=== PATIENT | female | born 1935 | race Caucasian/White ===

== ENCOUNTER 2017-03-19 07:50 | Day surgery (SDC) | payer MEDICARE, OTHER ==
[~2017-03-19] VITALS: Ht 168.9 cm; Wt 100.0 kg
[~2017-03-19 07:50] MED LIST: ACETAMINOPHEN 325 MG TAB PO PRN; ATEN25TA PO; BSS with VANC/TOB/EPI for EYE CASES IR ONE; CEFUROXIME 1MG/0.1ML INTRACAMERAL INJ As Ordered ONE; CYCLOPENTOLATE 2% OPHTH SOLN 2ML BTL OD ONE; FURO20TA2 PO; HEALON DUET (HEALON 10MG/ML 0.55ML & HEALON ENDOCOAT 30MG/ML 0.85ML) As Ordered ONE; K-TA10TA2 PO; LIDOCAINE 1% SDV 5 ML VIAL As Ordered ONE; LIDOCAINE 3.5 % 1ML OPHTH TOPICAL GEL OU ONE; METH2.5TA PO; MIDAZOLAM INJ 2 MG/2 ML VIAL (J2250) As Ordered ONE; OFLOXACIN 0.3 % (OCUFLOX) OPTH SOL 5ML OD ONE; PHENYLEPHRINE 2.5% OPHTH SOL 2ML OD ONE; POVIDONE-IODINE 5% OPHTH PREP SOL 30ML As Ordered ONE; PROPARACAINE 0.5% OPHTH SOL 15ML OD PRN; SIMV20TA2 PO; TROPICAMIDE 1% OPHTH SOLN 2ML OD ONE
[2017-03-19] MEDS ORDERED: D5W/0.2% SODIUM CHLORIDE 250 ML IV ONE (08:00)
[2017-03-19] MEDS ORDERED: CEFUROXIME 1MG/0.1ML INTRACAMERAL INJ As Ordered ONE (09:56)
[2017-03-19] MEDS ORDERED: HEALON DUET (HEALON 10MG/ML 0.55ML & HEALON ENDOCOAT 30MG/ML 0.85ML) As Ordered ONE (10:10)
[2017-03-19] MEDS ORDERED: fentaNYL 100 MCG/2 ML INJECTION (J3010) As Ordered ONE (10:11)
[2017-03-19] MEDS ORDERED: TRIMETHOBENZAMIDE 300 MG CAP PO PRN (11:00)
[2017-03-19] MEDS ORDERED: KETOROLAC 0.5% OPHTH SOLN OD ONE (11:00)
[2017-03-19] MEDS ORDERED: AcetaZOLAMIDE 500 MG ER CAP PO ONE (11:00)
--- NOTE | 2017-03-19 11:03 | RO ---
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 PROCEDURE: Phacoemulsification with intraocular lens implantation of HOYA model 250, power 20 diopters. Along with endocyclophotocoagulation and placement of the glaukos iStent. SURGEON: Dr. Taqueria Simon LOKIE ENGINEER: None. ANESTHESIA: COMPLICATION: None. DESCRIPTION OF PROCEDURE: The patient was brought to the operating room and laid in the supine position. The eye was prepped and draped in a sterile fashion for ophthalmic surgery. A lid speculum was placed. A sideport incision was made and Entocort was injected into the anterior chamber. A temporal clear corneal incision was made with the 2.5 mm keratome followed by hydrodissection followed by capsulorrhexis and hydrodissection. Phacoemulsification was then carried out in a divide and conquer method within the capsular bag followed by aspiration of the cortical material. Healon was then placed in the capsular bag followed by placement of the intraocular lens. Healon was then placed in a ciliary sulcus and then with the help of the video screen and an EndoProbe, endocyclophotocoagulation at 2.5 mV was carried out 280 degrees with good results noted by the shrinking of the ciliary processes. Healon was then placed into the anterior chamber and the iStent was placed in the infranasal quadrant under high magnification with the help of the gonial lens. Good blood reflex was noted but it was very difficult because of the patient's constant movement. Viscoelastic was aspirated. The wound was hydrated. The lid speculum removed and the patient returned to the recovery room and case discussed in detail with the patient.
[2017-03-19 11:25] VITALS: BP 132/68
== END 2017-03-19 11:35 | disposition home or self-care (01) ==
LOC: M SDC 07:50
PROVIDERS: ATTEND Ophthalmology
DX: H26.9 Unspecified cataract (principal); H40.9 Unspecified glaucoma; E78.00 Pure hypercholesterolemia, unspecified; R60.0 Localized edema; M06.9 Rheumatoid arthritis, unspecified; D03.39 Melanoma in situ of other parts of face; J45.909 Unspecified asthma, uncomplicated; R06.83 Snoring; Z88.0 Allergy status to penicillin; Z79.899 Other long term (current) drug therapy; Z78.0 Asymptomatic menopausal state
CPT/HCPCS: 66711; 66984; C1783; J2250; J3010; V2632

== ENCOUNTER 2019-03-28 09:59 | Inpatient (IN) | payer MEDICARE, OTHER ==
[~2019-03-28] VITALS: Ht 170.2 cm; Wt 82.0 kg
[2019-03-28] MEDS: ATORVASTATIN 20 MG TAB PO SCH (09:00)
[2019-03-28] MEDS: FOLIC ACID 1 MG TAB PO SCH (09:00)
[~2019-03-28 09:59] MED LIST changes: -ACETAMINOPHEN 325 MG TAB PO PRN; -BSS with VANC/TOB/EPI for EYE CASES IR ONE; -CEFUROXIME 1MG/0.1ML INTRACAMERAL INJ As Ordered ONE; -CYCLOPENTOLATE 2% OPHTH SOLN 2ML BTL OD ONE; -HEALON DUET (HEALON 10MG/ML 0.55ML & HEALON ENDOCOAT 30MG/ML 0.85ML) As Ordered ONE; -LIDOCAINE 1% SDV 5 ML VIAL As Ordered ONE; -LIDOCAINE 3.5 % 1ML OPHTH TOPICAL GEL OU ONE; +METH2.5T48 PO; -METH2.5TA PO; -MIDAZOLAM INJ 2 MG/2 ML VIAL (J2250) As Ordered ONE; -OFLOXACIN 0.3 % (OCUFLOX) OPTH SOL 5ML OD ONE; -PHENYLEPHRINE 2.5% OPHTH SOL 2ML OD ONE; -POVIDONE-IODINE 5% OPHTH PREP SOL 30ML As Ordered ONE; -PROPARACAINE 0.5% OPHTH SOL 15ML OD PRN; -TROPICAMIDE 1% OPHTH SOLN 2ML OD ONE
--- NOTE | 2019-03-28 10:51 | REP ---
Portable chest, 10:31 a.m., single AP view with the patient sitting: Comparison is the chest CT of 2006. The lung rodrigues are clear. The cardiac size is normal. The bert, mediastinum, and skeletal structures are unremarkable. Impression: Negative portable chest. Electronically Signed by Ion Ellsworth MD 03/28/2019 10:42 A
[2019-03-28 10:56] LABS: HEMATOCRIT 28.2 % (36.0-47.0); HEMOGLOBIN 9.5 g/dl (12.0-15.5); MEAN CORPUSCULAR HEMOGLOBIN 32.8 pg (27.0-33.0); MEAN CORPUSCULAR HGB CONC 33.7 g/dl (32.0-36.5); MEAN CORPUSCULAR VOLUME 97.2 fl (80.0-96.0); PLATELET COUNT, AUTOMATED 245 10^3/uL (150-450)
[2019-03-28 10:57] LABS: WHITE BLOOD COUNT 1.4 10^3/uL (4.0-10.0)
[2019-03-28] MEDS ORDERED: NS 1,000 ML IV ONE ×2 (11:00→11:45)
[2019-03-28 11:09] LABS: INR 1.01
[2019-03-28 11:10] LABS: PARTIAL THROMBOPLASTIN TIME 28.4 SECONDS (25.0-38.4)
[2019-03-28] MEDS ORDERED: ASPIRIN 325 MG TAB PO ONE (11:15)
[2019-03-28 11:22] LABS: BLOOD UREA NITROGEN 15 MG/DL (7-18); CALCIUM LEVEL 8.2 MG/DL (8.8-10.2); CARBON DIOXIDE LEVEL 31 MEQ/L (21-32); CHLORIDE LEVEL 104 MEQ/L (98-107); CK-MB VALUE MASS < 1.0 NG/ML (<3.6); CPK CREATINE PHOSPHOKINASE 39 U/L (26-192); CREATININE FOR GFR 1.22 MG/DL (0.55-1.30); GLOMERULAR FILTRATION RATE 44.8 (>32); GLUCOSE, FASTING 119 MG/DL (70-100); MB/CK RELATIVE INDEX 2.56 (< OR =4); SODIUM LEVEL 139 MEQ/L (136-145); TROPONIN I < 0.02 NG/ML (< 0.10)
[2019-03-28 11:35] LABS: BASOPHILS 2 % (0-1); EOSINOPHILS 2 % (0-3); LYMPHOCYTES 34 % (16-44); NEUTROPHILS 62 % (28-66); PLATELET ESTIMATE NORMAL (NORMAL)
--- NOTE | 2019-03-28 11:39 | REP ---
CT BRAIN WITHOUT IV CONTRAST: CT brain performed without IV contrast. There is mild to moderate atrophy. There is no midline shift or mass effect. There is an old infarct in the left posterior parietal region. There is no acute intracranial hemorrhage or extra-axial fluid collection. Vascular calcifications are seen in the carotid siphons. IMPRESSION: No acute intracranial hemorrhage, midline shift, or mass effect. 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 Vascular calcifications. Electronically Signed by Ion Yancey MD 03/30/2019 10:45 P
[2019-03-28] MEDS ORDERED: PROHANCE 279.3MG/ML 5ML VIAL (A9576) As Ordered ONE (12:37)
--- NOTE | 2019-03-28 13:12 | ECGEPIP ---
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
--- NOTE | 2019-03-28 14:12 | REPVR ---
EXAM: MR Angiogram Head Without Contrast, Arteries EXAM DATE/TIME: 03/28/2019 11:17 AM CLINICAL HISTORY: 83 years old, female; Weakness; Additional info: Per Dr abril gandaraided wkness and neglect TECHNIQUE: Imaging protocol: MR angiogram head without contrast. Exam focused on the arteries. COMPARISON: CT Head without contrast 03/28/2019 10:24 AM FINDINGS: Right internal carotid artery: Mildly heterogeneous contour, suggesting atherosclerosis. Intracranial segment is patent with no significant stenosis. No aneurysm. Right anterior cerebral artery: Unremarkable. No occlusion or significant stenosis. No aneurysm. Right middle cerebral artery: Unremarkable. No occlusion or significant stenosis. No aneurysm. Right posterior cerebral artery: Mild heterogeneous contour, suggesting atherosclerosis. No occlusion or significant stenosis. No aneurysm. Right vertebral artery: Dominant compared to the left. No occlusion or significant stenosis. No aneurysm. Left internal carotid artery: Mildly heterogeneous contour, suggesting atherosclerosis. Intracranial segment is patent with no significant stenosis. No aneurysm. Left anterior cerebral artery: Unremarkable. No occlusion or significant stenosis. No aneurysm. Left middle cerebral artery: Unremarkable. No occlusion or significant stenosis. No aneurysm. Left posterior cerebral artery: Unremarkable. No occlusion or significant stenosis. No aneurysm. Left vertebral artery: Only visualized in the distal aspect just proximal to the basilic artery, unclear if artifactual or due to occlusion. Basilar artery: Mildly heterogeneous contour, suggesting atherosclerosis. No occlusion or significant stenosis. No aneurysm. IMPRESSION: 1. Mildly heterogeneous contour to some of the intracranial vasculature as described, suggesting atherosclerosis. No intracranial occlusion, significant stenosis or aneurysm identified. 2. Left vertebral artery are visualized in the distal aspect just proximal to the basilic artery, unclear artifactual or due to occlusion. Suggest further evaluation with dedicated neck MR angiogram or ultrasound. Electronically signed by: Sergey Medina On 03/28/2019 14:12:49 PM
[2019-03-28] MEDS: KCL 20MEQ in NS 1000ML 1,000 ML IV SCH ×2 (14:13→23:36)
--- NOTE | 2019-03-28 14:29 | REPVR ---
EXAM: MR Head Without and With Contrast EXAM DATE/TIME: 03/28/2019 11:17 AM CLINICAL HISTORY: 83 years old, female; Weakness, extremity; Right; Additional info: Per Dr abril gandaraided wkness and neglect TECHNIQUE: Imaging protocol: MR of the head without and with intravenous contrast. Contrast material: PROHANCE; Contrast volume: 7 ml; Contrast route: IV; COMPARISON: CT Head without contrast 03/28/2019 10:24 AM FINDINGS: Limitations: Mild motion on some sequences. Brain: There is a large area of restricted diffusion, confirmed on ADC maps, in the left parieto-occipital region, measuring up to 5 cm. Several small foci of restricted diffusion are present more superiorly in the left frontal lobe and posterior and mid-aspects, as well as in the posterior aspect of the left frontal lobe. There are moderate degrees of increased signal in the deep subcortical and periventricular white matter bilaterally, left more than right, suggestive of chronic microvascular ischemic disease. No intracranial hemorrhage or extraaxial collection is identified. No intracranial mass is identified. There is no abnormal parenchymal or meningeal enhancement. Ventricles: The ventricles and sulci are stable in configuration, with similar atrophy. There is again some sulcal narrowing in the left parieto-occipital region associated with edema in the area of infarct. Bones/joints: Unremarkable. Soft tissues: Normal. Sinuses: A left maxillary sinus retention cyst or polyp is noted. Chronic mucosal disease involves some ethmoid air cells. Mastoid air cells: Normal as visualized. No mastoid effusion. Orbits: Unremarkable. IMPRESSION: 1. Large acute infarct in the left parieto-occipital region with several smaller acute infarcts elsewhere in the left parietal and frontal lobes. 2. Moderate chronic white matter disease. 3. No intracranial hemorrhage or mass identified. Electronically signed by: Sergey Medina On 03/28/2019 14:28:41 PM
[2019-03-28] MEDS ORDERED: LR 1,000 ML IV ONE (15:00)
[2019-03-28 15:25] VITALS: BP 133/64
--- NOTE | 2019-03-28 15:57 | REP ---
REASON: Stroke-like symptoms. PRIORS: None. Echogenic material is seen along the carotid arterial wall, some of which casts an acoustic shadow consistent with calcific deposition. RIGHT LEFT CCA Systolic 77.2 cm/s 88.9 cm/s CCA Diastolic 16.1 cm/s 16.3 cm/s ICA Systolic 169.2 cm/s 182.3 cm/s ICA Diastolic 38.4 cm/s 32.6 cm/s ICA/CCA Ratio 2.40 2.05 Spectral wave from analysis shows bilateral internal carotid arterial spectral broadening. There is normal antegrade flow seen in the right vertebral artery. Above and below baseline flow is seen in the left vertebral artery. IMPRESSION: 1. There is a 50-69% stenosis of the internal carotid artery bilaterally and according to the NASCET consensus criteria. This is secondary to both calcified and non-calcified atheromatous plaque formation. 2. 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 Electronically Signed by Rito Weeks DO 03/28/2019 05:10 P
[2019-03-28 16:22] LABS: ALBUMIN 2.5 GM/DL (3.2-5.2); ALT/SGPT 13 U/L (12-78); BILIRUBIN,DIRECT 0.4 MG/DL (0.0-0.2); BILIRUBIN,TOTAL 1.1 MG/DL (0.2-1.0); VITAMIN B12 LEVEL 140 PG/ML (247-911)
[2019-03-28 16:37] LABS: FOLATE 0.6 NG/ML (>5.4)
[2019-03-28 20:00] VITALS: BP 116/54
[2019-03-28] MEDS: CYANOCOBALAMIN 1,000 MCG/ML VIAL (J3420) IM SCH (20:55)
--- NOTE | 2019-03-28 21:54 | HPE ---
DATE OF ADMISSION: 03/28/2019 CHIEF COMPLAINT: Stroke with right hemiparesis. HISTORY: Nicolette Rodas is an 83-year-old who presents with right hemiparesis. She was camping with family, when on March 14 they noticed that she had right hemiparesis. She was unable to move the right side well. They continued camping, and then today when she was unable to feed herself with her right hand or use a spoon, so she was brought to the emergency room, where she was clinically found to have had a stroke. She denied any headache. No palpitations. Onset of the weakness was sudden and involved right arm and leg equally. She has no past history of cerebrovascular disease. PAST MEDICAL HISTORY: 1. Hyperlipidemia. 2. Rheumatoid arthritis, for which she is on methotrexate therapy. 3. Hypertensive cerebrovascular disease. 4. Mild prediabetes with proteinuria. 5. History of unspecified heart murmur. 6. History of malignant melanoma. 7. 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 SURGICAL HISTORY: 1. Tubal ligation. 2. Carpal tunnel. 3. Colonoscopy June 2012. 4. Cataracts extracted. FAMILY HISTORY: Her brother of tuberculosis (TB). SOCIAL HISTORY: She is . Retired from working at [employer] in the [employer] department. Apparently she is ambidextrous, which will help. She used to smoke, having quit in 1989. Does not drink alcohol very often. REVIEW OF SYSTEMS: No palpitations, tremor, chest pain, headache, or diplopia. MEDICATIONS: - atenolol 25 mg daily - furosemide 20 mg daily - methotrexate 12.5 mg weekly - simvastatin 20 mg daily ALLERGIES: PENICILLINS. PHYSICAL EXAMINATION: Blood pressure (BP) was 91/65, pulse 56, respirations 18, 99% oxygen saturation. GENERAL APPEARANCE: She is lying in bed visiting with family members. She is alert and seems unaware of her deficit. She has right hemiparesis noted in the bed. Pupils equal and reactive to light. Tympanic membranes (TMs) and oropharynx benign. Mild right facial weakness. LUNGS: Clear. HEART: Regular rhythm. A 1/6 systolic ejection murmur. ABDOMEN: Soft, nontender. No masses. Trace peripheral edema. NEUROLOGIC: Shows she is alert, conversant in no distress. She has right hemineglect. Right arm has 4/5 strength, right leg 4/5 strength. Left side has normal strength. She lateralizes to the left side and simultaneous stimulation. She reverts her right and left when asked to raise one arm or the other. Did not test her gait. LABORATORY DATA: Electrolytes are unremarkable. GFR is 45. White count is 1.4 with 62% neutrophils. Her absolute neutrophil count is about 850, hemoglobin 9.5 with macrocytic MCV of 97. Platelets 245. IMPRESSION: 1. Stroke, probably occurred 4 days ago, so we are beyond the window and the only intervention will be secondary prevention. She will be admitted to progressive care unit (PCU) bed, started on aspirin and a statin changed to atorvastatin 40 mg daily. Neurology consultation ordered. MRI/MRA pending. Carotid ultrasound and echocardiogram ordered. 2. Hypotension. Her blood pressure is low. I am going to give her some intravenous (IV) fluids and try to increase her pressure, improve cerebral perfusion. Atenolol is held. 3. Rheumatoid arthritis. Continue the methotrexate. 4. Macrocytic anemia. B12, folate, free T4, thyroid-stimulating hormone (TSH), and myeloma workup ordered. 5. History of melena. MRI pending. No suspicious skin lesions seen.
[2019-03-28 23:59] VITALS: BP 102/51
[2019-03-29 04:00] VITALS: BP 85/50
[2019-03-29 05:19] LABS: HEMATOCRIT 23.1 % (36.0-47.0); HEMOGLOBIN 7.5 g/dl (12.0-15.5); MEAN CORPUSCULAR HGB CONC 32.5 g/dl (32.0-36.5); MEAN CORPUSCULAR VOLUME 101.8 fl (80.0-96.0); PLATELET COUNT, AUTOMATED 160 10^3/uL (150-450); RED BLOOD COUNT 2.27 10^6/uL (4.00-5.40); WHITE BLOOD COUNT 1.4 10^3/uL (4.0-10.0)
[2019-03-29 05:28] LABS: ATYPICAL LYMPH 1 % (0-5); BASOPHILS 1 % (0-1); EOSINOPHILS 2 % (0-3); LYMPHOCYTES 50 % (16-44); MONOCYTES 2 % (0-5); NEUTROPHILS 43 % (28-66)
[2019-03-29 05:29] LABS: POIKILOCYTOSIS 1+
[2019-03-29 05:30] LABS: ANISOCYTOSIS 1+; PLATELET ESTIMATE NORMAL (NORMAL)
[2019-03-29 05:38] LABS: BLOOD UREA NITROGEN 11 MG/DL (7-18); CALCIUM LEVEL 7.2 MG/DL (8.8-10.2); CARBON DIOXIDE LEVEL 28 MEQ/L (21-32); CHLORIDE LEVEL 111 MEQ/L (98-107); CHOLESTEROL LEVEL 97 MG/DL (<200); CHOLESTEROL RISK RATIO 2.852 (<5); CREATININE FOR GFR 0.87 MG/DL (0.55-1.30); GLOMERULAR FILTRATION RATE > 60.0 (>32); GLUCOSE, FASTING 80 MG/DL (70-100); HDL CHOLESTEROL 34 MG/DL (>40); LDL CHOLESTEROL 46 MG/DL (<100); NON-HDL-C 63 MG/DL; SODIUM LEVEL 143 MEQ/L (136-145); TRIGLYCERIDES LEVEL 84 MG/DL (<150)
[2019-03-29 08:00] VITALS: BP 82/50
[2019-03-29] MEDS: ASPIRIN 325 MG TAB PO SCH (09:11)
[2019-03-29] MEDS: ATORVASTATIN 20 MG TAB PO SCH (09:11)
[2019-03-29] MEDS: FOLIC ACID 1 MG TAB PO SCH (09:11)
[2019-03-29] MEDS: ENOXAPARIN 40 MG/0.4 ML SYRINGE (J1650) SC SCH (09:12)
[2019-03-29] MEDS: CYANOCOBALAMIN 1,000 MCG/ML VIAL (J3420) IM SCH (09:12)
[2019-03-29] MEDS: KCL 20MEQ in NS 1000ML 1,000 ML IV SCH ×2 (09:12→20:00)
--- NOTE | 2019-03-29 10:06 | IPN ---
DATE: 03/29/2019 Nicolette is a happy camper today. She is feeling well, not expressing any complaints. She was admitted with a large left hemispheric stroke with right hemiparesis. She has no aphasia, and she has right hemineglect situation going on. PHYSICAL EXAM: Afebrile. Blood pressure is 80/50. It got up to 133/60 yesterday. GENERAL APPEARANCE: She is alert, conversant. She has right facial weakness. There is no speech difficulty (patient is ambidextrous, not right-hand dominant). LUNGS: Are clear. HEART: Regular rate and rhythm with 1/6 systolic ejection murmur. ABDOMEN: Soft. Nontender. No masses. No peripheral edema. Her right upper extremity has 4/5 strength. Left lower extremity 4/5 strength. Right facial droop noted. She has right hemineglect, double simultaneous stimulation lateralizes to the left. LABS: Electrolytes unremarkable. B12 level low at 140. Folic acid level low at 0.6. Lyme and ehrlichiosis workup is pending. SPEP and light chain assay is pending. White count is 1.4 with 43% neutrophils with absolute neutrophil count of 500. Hemoglobin is 7.5, platelets are 160. MRI scan showed large left hemispheric stroke with left occipitoparietal region and several smaller infarcts in parietal and frontal lobes. IMPRESSION: 1. Stroke. Physical and occupational therapy have been ordered. She might be a good rehabilitation candidate. She is on aspirin 325 mg daily. We started atorvastatin 40 mg daily. 2. Anemia, by etiology, seems multifocal. She has B12 and folate deficiency. She was started on folic acid yesterday and is currently getting daily B12 shots, which we probably can discontinue in a few days to reduce her frequency of these. We will check a parietal cell antibody to see if oral therapy is an option. I am concerned about, what looks to be, a developing pancytopenia. Her absolute neutrophil count is falling, her hemoglobin is down to 7.5, and her platelets are low as well. She has some tick studies that are pending. I will ask hematology to give us an option about the case as well. 3. Hypotension. Her blood pressure remains low. She does not look ill. She is not running a fever, does not look at all septic. She was on antihypertensives before this hospitalization, which have been held. She is entirely asymptomatic from this. 4. History of rheumatoid arthritis. She was on methotrexate therapy previously and maybe that is accounting for the hematologic abnormalities. I do not have access to previous labs, so I do not know what her outpatient complete blood counts (CBCs) were like. 5. History of malignant melanoma. I spoke with the radiologist who read her MRI scan yesterday; does not feel that there is anything here to suggest a metastatic lesion. 6. Cerebral atherosclerosis. Is not hemodynamically significant. She has 50-69% stenosis of the internal carotid arteries (ICAs) bilaterally.
--- NOTE | 2019-03-29 10:47 | CR ---
DATE OF CONSULTATION: 03/28/2019 REFERRING PHYSICIAN: Dr. Denis REASON FOR CONSULTATION: Stroke. HISTORY OF PRESENT ILLNESS: Nicolette Rodas is an 83-year-old woman who went camping for 4 days. She developed imbalance and right-sided weakness two or three days ago. She did not seek medical attention. Family noted imbalance and right-sided weakness when she came back from [facility]. They waited overnight and came to hospital the next day. The patient feels her speech is better. Her right-sided strength is better, but her balance and coordination are still off. She denies any headaches, neck or back pain. She denies dysphagia, dysarthria, diplopia, or urinary incontinence. PAST MEDICAL HISTORY: Hypertension, rheumatoid arthritis. CURRENT MEDICATIONS: Aspirin 25 mg by mouth daily, Lipitor 40 mg by mouth daily, and patient states that she was taking a blood pressure medicine at home but does not remember the name. She could not tolerate side effects of medications for rheumatoid arthritis. SOCIAL HISTORY: She denies smoking, alcohol, or illicit drugs. FAMILY HISTORY: There is no family history of seizures, migraines, or stroke. REVIEW OF SYSTEMS: All systems were reviewed and found to be noncontributory except as mentioned in history of present illness. PHYSICAL EXAMINATION: Temperature 97, pulse 59, respiratory 18, blood pressure 133/64, 94% saturation on room air. Heart: Regular rate and rhythm. Lungs: Clear to auscultation. Abdomen: Soft, nontender, nondistended. The patient has deformed hands due to rheumatoid arthritis with medial deviation of fingers. No rash. No signs of meningeal irritation. No tremor. The patient is awake, alert, oriented to month, date, name of city, state, country hospital and president. She was unable to tell me the year. Extraocular muscles are intact. No facial weakness. She has right-sided visual field deficit. She has right-sided dysmetria. Gait is unsteady. 5-/5 strength in right arm and neck. Plantars are mute. Deep tendon flexes are 1+ throughout. DIAGNOSTIC STUDIES: CT scan of bed and MRI scan of brain showed subacute left occipital and parietal and small left frontal ischemic strokes. Carotid ultrasound showed 50-69% bilateral carotid artery stenosis. MRA brain showed occlusion of left vertebral artery proximal to basilar artery. Vitamin B12 level was 140, and folic acid level was 0.6. WBCs are 1.4, and hemoglobin 9.5, platelet count 245. GFR is 44.8. ASSESSMENT: 1. Suspected embolic left parietal occipital and frontal subacute ischemic strokes. 2. Pancytopenia due to severe vitamin B12 and folic acid deficiency. 3. Right hemiparesis and gait difficulty related to above. 4. 50-69% bilateral carotid artery stenosis. PLAN: 1. Check fasting lipid profile. 2. Echocardiogram and continue telemetry monitoring to rule out cardiac source and cardiac arrhythmia. 3. Aspirin 325 mg by mouth daily and Lipitor 40 mg by mouth daily. 4. Vitamin B12 1 mg injection intramuscular once a day, and it can be changed to oral tablets at the time of her discharge. 5. Folic acid 1 mg by mouth daily. 6. Physical and occupational therapy and rehabilitation. 7. Follow with our office in 2-4 weeks after hospital discharge.
[2019-03-29 12:00] VITALS: BP 86/50
--- NOTE | 2019-03-29 15:16 | ECHO ---
DATE OF STUDY: 03/28/2019 REFERRING PHYSICIAN: Dr. Medhat Denis INDICATION: Acute stroke. HEIGHT: 67 cm WEIGHT: 80 kg 2-D MEASUREMENTS: Left atrium: 4.1 cm Ventricular septum: 1.16 cm Posterior wall: 1.16 cm Left ventricle diastole: 4.1 cm Inferior vena cava: 2.3 cm with normal respiratory variation DOPPLER MEASUREMENTS: Aortic valve velocity: 2.35 cm/s LVOT velocity: 96.8 cm/s LVOT VTI: 26.1 cm Mitral E velocity: 91.7 cm/s Mitral A velocity: 110 cm/s Mitral deceleration time: 266 ms Very mild tricuspid regurgitation. Estimated right ventricular systolic pressure: 32- 37 mmHg assuming a right atrial pressure of 5-10 mmHg MITRAL ANNULAR TISSUE DOPPLER: E prime septal: 4.35 cm/s E prime lateral: 5.55 cm/s DESCRIPTION: Rhythm was sinus bradycardia. Image quality was fair. This is a 2-D, M-mode, color flow Doppler and pulse waved Doppler examination and included mitral annular tissue Doppler. CONCLUSIONS: 1. Moderately-severe focal thickening and focal calcific deposits of a 3-cusp aortic valve. Mild reduction in aortic cusp mobility. Very mild aortic stenosis. No aortic regurgitation. 2. Normal left ventricle internal dimensions and wall thickness. Normal regional LV wall motion and wall thickening. Normal LV systolic function. Grade 1 LV diastolic dysfunction. 3. Mild left atrial dilatation. 4. Moderate mitral annular calcification. No mitral regurgitation or stenosis. 5. Suggestive of mild elevation of estimated right ventricle systolic pressure. Very mild tricuspid regurgitation.
[2019-03-29 16:00] VITALS: BP 90/50
[2019-03-29 20:00] VITALS: BP 88/52
[2019-03-30] VITALS: BP 99/57
[2019-03-30 04:00] VITALS: BP 101/58
[2019-03-30 04:13] LABS: HEMATOCRIT 25.6 % (36.0-47.0); HEMOGLOBIN 8.3 g/dl (12.0-15.5); MEAN CORPUSCULAR HEMOGLOBIN 32.3 pg (27.0-33.0); MEAN CORPUSCULAR HGB CONC 32.4 g/dl (32.0-36.5); MEAN CORPUSCULAR VOLUME 99.6 fl (80.0-96.0); PLATELET COUNT, AUTOMATED 170 10^3/uL (150-450); RED BLOOD COUNT 2.57 10^6/uL (4.00-5.40)
[2019-03-30 04:14] LABS: WHITE BLOOD COUNT 1.7 10^3/uL (4.0-10.0)
[2019-03-30 04:31] LABS: BLOOD UREA NITROGEN 11 MG/DL (7-18); CALCIUM LEVEL 7.2 MG/DL (8.8-10.2); CARBON DIOXIDE LEVEL 28 MEQ/L (21-32); CHLORIDE LEVEL 111 MEQ/L (98-107); CREATININE FOR GFR 0.86 MG/DL (0.55-1.30); GLOMERULAR FILTRATION RATE > 60.0 (>32); GLUCOSE, FASTING 97 MG/DL (70-100); POTASSIUM SERUM 4.4 MEQ/L (3.5-5.1); SODIUM LEVEL 143 MEQ/L (136-145)
[2019-03-30 04:37] LABS: ANISOCYTOSIS 2+; BASOPHILS 2 % (0-1); EOSINOPHILS 2 % (0-3); LYMPHOCYTES 51 % (16-44); MONOCYTES 2 % (0-5); NEUTROPHILS 43 % (28-66); PLATELET CLUMPS SMALL AMT; PLATELET ESTIMATE NORMAL (NORMAL)
[2019-03-30 04:41] LABS: OVALOCYTES 1+; POIKILOCYTOSIS 1+
[2019-03-30] MEDS: KCL 20MEQ in NS 1000ML 1,000 ML IV SCH ×2 (05:42→16:33)
[2019-03-30 08:00] VITALS: BP 132/60
[2019-03-30] MEDS: FOLIC ACID 1 MG TAB PO SCH ×2 (09:20→16:33)
[2019-03-30] MEDS: ASPIRIN 325 MG TAB PO SCH (09:20)
[2019-03-30] MEDS: CYANOCOBALAMIN 1,000 MCG/ML VIAL (J3420) IM SCH (09:20)
[2019-03-30] MEDS: ENOXAPARIN 40 MG/0.4 ML SYRINGE (J1650) SC SCH (09:21)
[2019-03-30] MEDS: ATORVASTATIN 20 MG TAB PO SCH (09:21)
[2019-03-30 13:28] LABS: FERRITIN 562 NG/ML (8-252); IRON (FE) 118 UG/DL (50-170); PERCENT SATURATION 76.6 % (13.2-45.0); TOTAL IRON BINDING CAPACITY 154 UG/DL (250-450)
--- NOTE | 2019-03-30 13:30 | IPN ---
DATE: 03/30/2019 Nicolette is seen in the progressive care unit (PCU), feels a little better than she did yesterday. She is stronger on her right side. Hemoglobin is stabilized. Most of the testing ordered yesterday is not back yet. Her urine culture just grew out some Corynebacterium, which is not pathogenic - we are not treating that. Dr. Dillard saw her in consultation, agreed with aspirin and atorvastatin for her stroke. Agreed with the B12 and folic acid therapy for B12 and folate deficiency. Will plan to see her in the office after discharge. PHYSICAL EXAM: Blood pressure 132/60, afebrile. General Appearance: Alert, conversant, no distress. Right facial droop and right hemiparesis with grade 4/5 strength in the upper and lower extremity noted, though improved from yesterday. Lungs: Clear. Heart: Regular rhythm. 1/6 systolic ejection murmur noted. IMPRESSION: 1. Stroke. Right hemiparesis. Physical therapy has been ordered. She is on aspirin and atorvastatin. Acute rehabilitation unit (ARU) consulted. 2. Anemia, multifactorial. B12 and folate deficiency is being treated. She has further workup, including studies, haptoglobin, Patrick test, and I spoke with Hematology yesterday, still waiting for that dictated note. 3. Hypotension. This resolved. Antihypertensives were held on admission, and her blood pressure has improved. These have not been restarted. 4. Mild aortic stenosis on echocardiogram. Not hemodynamically significant. 5. History of rheumatoid arthritis. She is on methotrexate as an outpatient, which might be contributing to her pancytopenia and this has been held. 6. Carotid atherosclerosis. 50-69% stenosis of the internal carotid arteries (ICAs) bilaterally, which do not require an immediate intervention. 7. Corynebacterium on urine culture. Not pathogenic, and we are not treating this.
[2019-03-30 16:00] VITALS: BP 158/68
[2019-03-30 20:00] VITALS: BP 142/80
[2019-03-31] MEDS: KCL 20MEQ in NS 1000ML 1,000 ML IV SCH ×3 (01:23→21:23)
[2019-03-31 04:00] VITALS: BP 113/58
[2019-03-31 05:28] LABS: HEMATOCRIT 22.2 % (36.0-47.0); HEMOGLOBIN 7.4 g/dl (12.0-15.5); LYMPH # 0.8 10^3/uL (1.5-4.5); LYMPH % 54.3 % (24.0-44.0); MEAN CORPUSCULAR HEMOGLOBIN 34.3 pg (27.0-33.0); MEAN CORPUSCULAR HGB CONC 33.3 g/dl (32.0-36.5); MEAN CORPUSCULAR VOLUME 102.8 fl (80.0-96.0); NEUTROPHILS % 43.7 % (36.0-66.0); PLATELET COUNT, AUTOMATED 109 10^3/uL (150-450); RED BLOOD COUNT 2.16 10^6/uL (4.00-5.40)
[2019-03-31 05:38] LABS: BLOOD UREA NITROGEN 7 MG/DL (7-18); CALCIUM LEVEL 7.3 MG/DL (8.8-10.2); CARBON DIOXIDE LEVEL 23 MEQ/L (21-32); CHLORIDE LEVEL 114 MEQ/L (98-107); CREATININE FOR GFR 0.67 MG/DL (0.55-1.30); GLOMERULAR FILTRATION RATE > 60.0 (>32); GLUCOSE, FASTING 86 MG/DL (70-100); POTASSIUM SERUM 4.7 MEQ/L (3.5-5.1); SODIUM LEVEL 142 MEQ/L (136-145)
[2019-03-31 05:47] LABS: NEUTROPHILS # 0.7 10^3/uL (1.8-7.7); WHITE BLOOD COUNT 1.5 10^3/uL (4.0-10.0)
[2019-03-31 08:00] VITALS: BP 140/70
[2019-03-31] MEDS: ASPIRIN 325 MG TAB PO SCH (09:19)
[2019-03-31] MEDS: CYANOCOBALAMIN 1,000 MCG/ML VIAL (J3420) IM SCH (09:20)
[2019-03-31] MEDS: FOLIC ACID 1 MG TAB PO SCH (09:20)
[2019-03-31] MEDS: ENOXAPARIN 40 MG/0.4 ML SYRINGE (J1650) SC SCH (09:20)
[2019-03-31] MEDS: ATORVASTATIN 20 MG TAB PO SCH (09:21)
[2019-03-31 11:06] LABS: HEPATITIS B SURFACE ANTIGEN NEGATIVE (NEGATIVE)
[2019-03-31 11:33] LABS: HEPATITIS B CORE ANTIBODY IGM NEGATIVE (NEGATIVE); HIV 1&2 SCREEN CENTAUR NEGATIVE (NEGATIVE)
[2019-03-31 11:34] LABS: HEPATITIS A ANTIBODY IGM NEGATIVE (NEGATIVE)
[2019-03-31 16:00] VITALS: BP 140/80
[2019-03-31] MEDS ORDERED: ONDANSETRON 4MG/2ML VIAL (J2405) IV PRN (18:45)
--- NOTE | 2019-03-31 20:55 | IPNPDOC ---
Text Note Date of Service The patient was seen on 03/31/19. NOTE Subjective: States she feels well today, is joking around. No acute complaints. Family note she is coughing with PO intake occasionally. States right sided is stronger today. Vitals reviewed GEN: NAD, sitting in chair, alert HEENT: EOMI, MMM Cardio: RRR, no m/r/g Lungs: CTA b/l Abd: s, nd, nd, bs present Ext: no edema MSK: decreased strength on right side. IMPRESSION: Acute Stroke. Right hemiparesis. Physical therapy has been ordered. She is on aspirin and atorvastatin. Acute rehabilitation unit (ARU) consulted. 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 B12 and folate deficiency is being treated. Previous provider spoke with Hematology, follow up dictated noted. Hemoglobin slowly dropping again, Maintain active T&S. Transfuse if Hgb <7. Hypotension. This resolved. Antihypertensives were held on admission, and her blood pressure has improved. These have not been restarted. Mild aortic stenosis on echocardiogram. Not hemodynamically significant. History of rheumatoid arthritis. She is on methotrexate as an outpatient, which might be contributing to her pancytopenia and this has been held. Carotid atherosclerosis. 50-69% stenosis of the internal carotid arteries (ICAs) bilaterally, which do not require an immediate intervention. Corynebacterium on urine culture. Not pathogenic, and we are not treating this. Vital Signs Date Time Temp Pulse Resp B/P (MAP) Pulse Ox O2 Delivery O2 Flow Rate FiO2 03/31/19 16:00 97.6 60 18 140/80 (100) 95 03/31/19 08:00 97.2 60 18 140/70 (93) 95 03/31/19 04:00 97.4 61 19 113/58 (76) 95 Intake & Output 03/31/19 06:00 Intake Total 1510 ml Output Total 1050 ml Balance 460 ml Laboratory Tests 03/31/19 05:00: White Blood Count 1.5L, Red Blood Count 2.16L, Hemoglobin 7.4L, Hematocrit 22.2L, Mean Corpuscular Volume 102.8H, Mean Corpuscular Hemoglobin 34.3H, Mean Corpuscular Hemoglobin Concent 33.3, Red Cell Distribution Width 20.1H, Platelet Count 109L, Neutrophils (%) (Auto) 43.7, Lymphocytes (%) (Auto) 54.3H, Monocytes (%) (Auto) 2.0, Eosinophils (%) (Auto) 0.0, Basophils (%) (Auto) 0.0, Neutrophils # (Auto) 0.7L, Lymphocytes # (Auto) 0.8L, Monocytes # (Auto) 0.0, Eosinophils # (Auto) 0.0, Basophils # (Auto) 0.0, Immature Granulocyte % (Auto) 0.0, Nucleated Red Blood Cells % (auto) 0.0, Blood Urea Nitrogen 7, Creatinine 0.67, Sodium Level 142, Potassium Level 4.7, Chloride Level 114H, Carbon Dioxide Level 23, Calcium Level 7.3L, Anion Gap 5L, Glomerular Filtration Rate > 60.0, Fasting Glucose 86 Microbiology 03/28/19 Urine Culture - Final, Complete Corynebacterium Species Current Medications Medications (Trade) Dose Ordered Sig/Nicole Route PRN Reason Start Time Stop Time Status Last Admin Dose Admin Aspirin (Aspirin) 325 mg DAILY PO 03/29/19 09:00 03/31/19 09:19 325 MG Atorvastatin Calcium (Lipitor) 40 mg DAILY PO 03/28/19 09:00 03/31/19 09:21 40 MG Cyanocobalamin (Vitamin B12 Injection) 1,000 mcg DAILY IM 03/28/19 19:30 03/31/19 09:20 1,000 MCG Enoxaparin Sodium (Lovenox) 40 mg DAILY SC 03/29/19 09:00 03/31/19 09:20 40 MG Folic Acid (Folic Acid) 15 mg DAILY PO 03/30/19 09:00 04/08/19 09:01 03/31/19 09:20 15 MG Potassium Chloride/Sodium Chloride 1,000 ml @ 100 mls/hr Q10H IV 03/28/19 14:00 03/31/19 10:42 100 MLS/HR VS,Fishbone, I+O VS, Fishbone, I+O Laboratory Tests 03/31/19 05:00 Red Blood Count 2.16 L, Mean Corpuscular Volume 102.8 H, Mean Corpuscular Hemoglobin 34.3 H, Mean Corpuscular Hemoglobin Concent 33.3, Red Cell Distribution Width 20.1 H, Neutrophils (%) (Auto) 43.7, Lymphocytes (%) (Auto) 54.3 H, Monocytes (%) (Auto) 2.0, Eosinophils (%) (Auto) 0.0, Basophils (%) (Auto) 0.0, Neutrophils # (Auto) 0.7 L, Lymphocytes # (Auto) 0.8 L, Monocytes # (Auto) 0.0, Eosinophils # (Auto) 0.0, Basophils # (Auto) 0.0, Calcium Level 7.3 L Vital Signs Date Time Temp Pulse Resp B/P (MAP) Pulse Ox O2 Delivery O2 Flow Rate FiO2 03/31/19 16:00 97.6 60 18 140/80 (100) 95 03/28/19 14:00 Room Air I&O- Last 24 Hours up to 6 AM 03/31/19 06:00 Intake Total 1510 ml Output Total 1050 ml Balance 460 ml TAWANDA NAVARRETE MD Mar 31, 2019 20:55
[2019-03-31 23:59] VITALS: BP 140/66
[2019-04-01 00:10] LABS: ANTI-PARIETAL CELL ANTIBODY 2.4 Units (0.0-20.0)
[2019-04-01] MEDS: KCL 20MEQ in NS 1000ML 1,000 ML IV SCH ×2 (05:26→15:05)
[2019-04-01 06:49] LABS: HEMATOCRIT 23.1 % (36.0-47.0); HEMOGLOBIN 7.7 g/dl (12.0-15.5); MEAN CORPUSCULAR HEMOGLOBIN 33.6 pg (27.0-33.0); MEAN CORPUSCULAR HGB CONC 33.3 g/dl (32.0-36.5); MEAN CORPUSCULAR VOLUME 100.9 fl (80.0-96.0); RED BLOOD COUNT 2.29 10^6/uL (4.00-5.40)
[2019-04-01 07:13] LABS: BLOOD UREA NITROGEN 8 MG/DL (7-18); CALCIUM LEVEL 7.5 MG/DL (8.8-10.2); CARBON DIOXIDE LEVEL 26 MEQ/L (21-32); CHLORIDE LEVEL 111 MEQ/L (98-107); GLOMERULAR FILTRATION RATE > 60.0 (>32); GLUCOSE, FASTING 86 MG/DL (70-100); POTASSIUM SERUM 4.5 MEQ/L (3.5-5.1); SODIUM LEVEL 142 MEQ/L (136-145); WHITE BLOOD COUNT 1.7 10^3/uL (4.0-10.0)
[2019-04-01 07:18] LABS: EOSINOPHILS 4 % (0-3); LYMPHOCYTES 54 % (16-44); MONOCYTES 1 % (0-5); NEUTROPHILS 41 % (28-66)
[2019-04-01 07:19] LABS: ANISOCYTOSIS 2+; PLATELET CLUMPS SMALL AMT; PLATELET ESTIMATE INVALID (NORMAL)
[2019-04-01] MEDS: ATORVASTATIN 20 MG TAB PO SCH (08:22)
[2019-04-01] MEDS: CYANOCOBALAMIN 1,000 MCG/ML VIAL (J3420) IM SCH (08:23)
[2019-04-01] MEDS: ENOXAPARIN 40 MG/0.4 ML SYRINGE (J1650) SC SCH (08:23)
[2019-04-01] MEDS: ASPIRIN 325 MG TAB PO SCH (08:23)
[2019-04-01] MEDS: FOLIC ACID 1 MG TAB PO SCH (10:19)
[2019-04-01] MEDS ORDERED: VARIBAR PUDDING 40% w/v 230ML TUBE As Ordered ONE (11:58)
[2019-04-01] MEDS ORDERED: E-Z-PAQUE 96% w/w SUSP 176GM BTL As Ordered ONE (11:59)
[2019-04-01] MEDS ORDERED: VARIBAR NECTAR 40% w/v 240ML SUSP BTL As Ordered ONE (11:59)
[2019-04-01] MEDS ORDERED: BARIUM SULFATE 700 MG TABLET (E-Z-DISK) As Ordered ONE (11:59)
[2019-04-01 12:46] LABS: ALBUMIN 2.69 GM/DL (3.29-5.55); ALBUMIN % 53.8 % (55.8-66.1); ALPHA-1-GLOBULIN % 7.8 % (2.9-4.9); ALPHA-1-GLOBULINS 0.39 GM/DL (0.17-0.41); ALPHA-2-GLOBULINS 0.56 GM/DL (0.42-0.99); ALPHA-2-GLOBULINS % 11.2 % (7.1-11.8); BETA-1-GLOBULINS % 5.9 % (4.7-7.2); BETA-2-GLOBULINS 0.29 GM/DL (0.19-0.55); BETA-2-GLOBULINS % 5.7 % (3.2-6.5); GAMMA GLOBULIN % 15.6 % (11.1-18.8)
[2019-04-01 12:47] LABS: GAMMA GLOBULINS 0.78 GM/DL (0.65-1.58)
[2019-04-01 14:00] VITALS: BP 114/60
--- NOTE | 2019-04-01 18:47 | IPNPDOC ---
Text Note Date of Service The patient was seen on 04/01/19. NOTE S: pateint states feels better today. working with PT/OT. no CP, no HAYES, no SOB; Modified barium swallow pending O: Vitals as below General: pleasant NAD AAOx3 HRRR LCTA Neuro: CN3-12 intact , no gross sensory deficits; motor strength 4/5 on right upper and lower extremity; moves all extremities A/P: Acute Stroke. Right hemiparesis - improving; She is on aspirin and atorvast atin. PT/OT consulted. Possible d/c to home when cleared by PT/OT Dysphagia due to CVA: Speech therapy eval, Modified barium swallow ordered and pending Macrocytic Anemia/Pancytopenia, multifactorial. B12 and folate deficiency is being treated. Previous provider spoke with Hematology, follow up dictated noted. Hemoglobin slowly dropping again, Maintain active T&S. Transfuse if Hgb <7. Hypotension. resolved - Antihypertensives were held on admission, and her blood pressure has improved. HTN - restart atenolol with hold parameters for SBP under 120 to avoid hypotensive in post stroke period Mild aortic stenosis on echocardiogram. Not hemodynamically significant. History of rheumatoid arthritis. She is on methotrexate as an outpatient, which might be contributing to her pancytopenia and this has been held. Carotid atherosclerosis. 50-69% stenosis of the internal carotid arteries (ICAs) bilaterally, which do not require an immediate intervention. Corynebacterium on urine culture. Not pathogenic, not treated/asymptomatic Possible d/c in 1-2 days when cleared by PT/OT VS,Sam, I+O VS, Johnbone, I+O Laboratory Tests 04/01/19 05:59 Red Blood Count 2.29 L, Mean Corpuscular Volume 100.9 H, Mean Corpuscular Hemoglobin 33.6 H, Mean Corpuscular Hemoglobin Concent 33.3, Red Cell Distribution Width 19.9 H, Calcium Level 7.5 L Vital Signs Date Time Temp Pulse Resp B/P (MAP) Pulse Ox O2 Delivery O2 Flow Rate FiO2 04/01/19 14:00 97.3 66 20 114/60 (78) 98 03/28/19 14:00 Room Air I&O- Last 24 Hours up to 6 AM 04/01/19 06:00 Intake Total 2635 ml Output Total 0 ml Balance 2635 ml ADELIA HOUSER DO Apr 01, 2019 18:47
[2019-04-01] MEDS: ATENOLOL 25 MG TAB PO SCH (20:12)
[2019-04-01] MEDS: SIMVASTATIN 20 MG TAB PO SCH (20:13)
--- NOTE | 2019-04-01 20:13 | MEDONC ---
DATE OF SERVICE: 03/30/2019 PRIMARY PHYSICIAN: Medhat eDnis MD REASON FOR CONSULTATION: Pancytopenia. This is an 83-year-old female with right hemiparesis. Patient was camping with family. On March 14 they noticed that she had right hemiparesis. She was unable to move her right side. She was unable to feed herself with the right hand. It appears that the patient lives with the son and [id number]. However, they seem to be clueless about the patient and appear that she has been very malnourished, however, there seems to be significant negligence by her family about her health status. PAST MEDICAL HISTORY: 1. Stroke. 2. Hypertension. 3. Rheumatoid arthritis. 4. Macrocytic anemia. 5. History of melena. 6. Hypertensive cerebrovascular disease. 7. Pre-diabetes with proteinuria. 8. History of unspecified heart murmur. 9. History of malignant melanoma. 10. 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 REVIEW OF SYSTEMS: Patient reports increasing fatigue. Remainder of review of systems as per HPI. Patient is a good historian, however, her son and [id number] appear to be clueless about her medical history. Denies shortness of breath, cough, nausea, vomiting, diarrhea, constipation. The patient reports increasing bruises, however, they are atraumatic. In addition, the patient reported increased imbalanced gait. PAST SURGICAL HISTORY: 1. Tubal ligation. 2. Carpal tunnel. 3. Colonoscopy June 2012. 4. Cataracts extracted. FAMILY HISTORY: Her brother of TB. SOCIAL HISTORY: The patient is . Retired from working at [employer] in [employer] department. Ambidextrous. Cigarettes: Used one pack per day for 20 years. Discontinued in 1989. Does not drink or use illicit drugs. MEDICATIONS: - atenolol - furosemide - methotrexate - simvastatin ALLERGIES: PENICILLIN. PHYSICAL EXAMINATION: Awake, alert, oriented. Not in acute distress. Temperature 97.5, heart rate 58, blood pressure 172/60. Respiratory rate 18. Pulse oximetry 97. Blood pressure on admission was reported to be 58 systolic. Lungs bilaterally clear. No added sounds. Cardiac: S1, S2, 1/6 murmur. Abdomen: Organomegaly not noted. Extremities: No cyanosis, clubbing. Trace edema noted. Just was positive on the right side. Right mid upper and lower extremity 4-/5. Left side unremarkable. Lymphatics: Not appreciated enlarged lymph nodes under the neck, armpits and groin areas. LABORATORY DATA: CBC, CMP. White blood count 1.7, hemoglobin 8.3, MCV 99.6, platelets 170. Lymphocytes percentage: 51%. Chemistry unremarkable. Vitamin B12 140, folate 0.6. Total bilirubin 0.1. ASSESSMENT AND PLAN: This is an 83-year-old female with currently on methotrexate presents with pancytopenia with low white count. Patient's absolute neutrophil count percentage 43%. 1. Neutropenia. 2. Anemia, microcytic. 3. Pancytopenia, on methotrexate. 4. Patient has rheumatoid arthritis, on methotrexate. With mechanism of action of methotrexate competitively inhibits dihydrofolate reductase (DHFR), an enzyme that participates in the tetrahydrofolate synthesis.. Patient is noted to have vitamin B12 and folate that is low. PLAN: 1. Diagnostic CBC, CMP, iron studies, folate, B12 done. 2. Peripheral blood smear. 3. Peripheral blood flow cytometry with FISH panel, MDS, lymphoma, leukemia, CLL. 4. Replace folate 15 mg by mouth times 10 days, subsequently with folate 5 mg by mouth daily. 5. Vitamin B12 1000 mcg IM times one. 6. Pancytopenia is likely to be due to immunosuppressant therapy with methotrexate above her underlying bone marrow disorder cannot be ruled out. Currently patient has low vitamin B12 and folate which warrants replacement 7. serology testing including hepatitis B and C, RISA, ESR, 8. Immunology. Anti-DS DNA anti-Parra antibody I spent 55 minutes during this encounter with more than 50% of the time counseling the patient about the above plan of care. In addition, I spent 30 minutes counseling the family about the patient's diagnosis and diagnostic studies and the need for additional diagnostic studies and the need to followup in the cancer center as outpatient as the patient may warrant a bone marrow biopsy should the above diagnosis is not ruled out and the underlying etiology. In addition, the patient will require a lot of serology testing including hepatitis B and C, RISA, ESR, Electronically Signed by Abhi Bartholomew MD 04/01/2019 09:46 P DD: Abhi Bartholomew MD 03/30/2019 11:48 A DT: albert 04/01/2019 03:40 P CC:
[2019-04-01 22:00] VITALS: BP 125/56
[2019-04-02 00:06] LABS: KAPPA/LAMBDA RATIO SERUM 1.16 (0.26-1.65); Lyme Disease IgG/IgM Antibodie <0.91 ISR (0.00-0.90); Lyme Disease IgM Ab Quantitati <0.80 index (0.00-0.79)
[2019-04-02 06:00] VITALS: BP 125/56
[2019-04-02 06:12] LABS: HEMATOCRIT 23.2 % (36.0-47.0); HEMOGLOBIN 7.7 g/dl (12.0-15.5); LYMPH # 0.6 10^3/uL (1.5-4.5); MEAN CORPUSCULAR HEMOGLOBIN 33.3 pg (27.0-33.0); MEAN CORPUSCULAR HGB CONC 33.2 g/dl (32.0-36.5); MEAN CORPUSCULAR VOLUME 100.4 fl (80.0-96.0); MONO # 0.1 10^3/uL (0.0-0.8); NEUTROPHILS % 58.4 % (36.0-66.0); RED BLOOD COUNT 2.31 10^6/uL (4.00-5.40)
[2019-04-02 06:34] LABS: BLOOD UREA NITROGEN 9 MG/DL (7-18); CALCIUM LEVEL 7.8 MG/DL (8.8-10.2); CARBON DIOXIDE LEVEL 29 MEQ/L (21-32); CHLORIDE LEVEL 109 MEQ/L (98-107); CREATININE FOR GFR 0.76 MG/DL (0.55-1.30); GLOMERULAR FILTRATION RATE > 60.0 (>32); GLUCOSE, FASTING 93 MG/DL (70-100); POTASSIUM SERUM 4.5 MEQ/L (3.5-5.1); SODIUM LEVEL 140 MEQ/L (136-145)
[2019-04-02 06:47] LABS: WHITE BLOOD COUNT 1.7 10^3/uL (4.0-10.0)
[2019-04-02 06:48] LABS: PLATELET COUNT, AUTOMATED 62 10^3/uL (150-450)
[2019-04-02] MEDS: CYANOCOBALAMIN 1,000 MCG/ML VIAL (J3420) IM SCH (08:40)
[2019-04-02] MEDS: FOLIC ACID 1 MG TAB PO SCH (08:41)
[2019-04-02] MEDS: ATORVASTATIN 20 MG TAB PO SCH (08:41)
[2019-04-02] MEDS: ASPIRIN 325 MG TAB PO SCH (08:41)
[2019-04-02] MEDS: ENOXAPARIN 40 MG/0.4 ML SYRINGE (J1650) SC SCH (08:42)
[2019-04-02 14:00] VITALS: BP 106/52
--- NOTE | 2019-04-02 18:19 | IPNPDOC ---
Text Note Date of Service The patient was seen on 04/02/19. NOTE S: patient being seen for CVA. she is not cleared by PT/OT; ST to see tomorrow for testing, Patient states she feels fine and ready to go home. no CP, no HAYES, no N ,no V; O: Vitals as below HRRR LCTA no W/R/R Abdomen soft NT ND NABS Ext: mild left wrist weakness , but otherwise bilateral lower extremities = in strength labs reviewed and platelets decreased with ASA A/P: Embolic left parietal occipital and frontal subacute ischemic strokes with mild right hemiparesis - improving; She is on aspirin and atorvastatin. Will d/c ASA due to significant thrombocytopenia. PT/OT consulted. Possible d/c to home when cleared by PT/OT; follow up with neuro 2-4 weeks after discharge. 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 B12 and folate deficiency is being treated. Hemoglobin slowly dropping again, Maintain active T&S. Transfuse if Hgb <7. Hematology consulted and note reviewed " Pancytopenia is likely to be due to immunosuppressant therapy with methotrexate above her underlying bone marrow disorder cannot be ruled out." Currently patient has low vitamin B12 and folate which warrants replacement. May need bone marrow biopsy as outpateint if lab workup (pending) is negative. Thrombocytopenia - worse with higher doses of ASA 324 mg for CVA. Hold ASA for today and when platelets above 100, restart ASA at 81mg Hypotension. resolved - Antihypertensives were held on admission, and her blood pressure has improved. HTN - restart atenolol with hold parameters for SBP under 120 to avoid hypotensive in post stroke period Mild aortic stenosis on echocardiogram. Not hemodynamically significant. History of rheumatoid arthritis. She is on methotrexate as an outpatient, which might be contributing to her pancytopenia and this has been held. Carotid atherosclerosis. 50-69% stenosis of the internal carotid arteries (ICAs) bilaterally, which do not require an immediate intervention. Corynebacterium on urine culture. Not pathogenic, not treated/asymptomatic Possible d/c in 1-2 days when cleared by PT/OT VS,Fishbone, I+O VS, Fishbone, I+O Laboratory Tests 04/02/19 05:48 Red Blood Count 2.31 L, Mean Corpuscular Volume 100.4 H, Mean Corpuscular He moglobin 33.3 H, Mean Corpuscular Hemoglobin Concent 33.2, Red Cell Distribution Width 19.7 H, Neutrophils (%) (Auto) 58.4, Lymphocytes (%) (Auto) 37.0, Monocytes (%) (Auto) 4.0, Eosinophils (%) (Auto) 0.0, Basophils (%) (Auto) 0.0, Neutrophils # (Auto) 1.0 L, Lymphocytes # (Auto) 0.6 L, Monocytes # (Auto) 0.1, Eosinophils # (Auto) 0.0, Basophils # (Auto) 0.0, Calcium Level 7.8 L Vital Signs Date Time Temp Pulse Resp B/P (MAP) Pulse Ox O2 Delivery O2 Flow Rate FiO2 04/01/19 22:00 97.9 64 20 125/56 (79) 97 03/28/19 14:00 Room Air I&O- Last 24 Hours up to 6 AM 04/02/19 06:00 Intake Total 580 ml Output Total 50 ml Balance 530 ml ADELIA HOUSER DO Apr 02, 2019 13:34
[2019-04-02] MEDS: SIMVASTATIN 20 MG TAB PO SCH (21:36)
[2019-04-02] MEDS: ATENOLOL 25 MG TAB PO SCH (21:36)
[2019-04-02 22:00] VITALS: BP 124/73
[2019-04-03 06:00] VITALS: BP 138/65
[2019-04-03 06:19] LABS: HEMATOCRIT 22.2 % (36.0-47.0); HEMOGLOBIN 7.4 g/dl (12.0-15.5); LYMPH # 1.1 10^3/uL (1.5-4.5); LYMPH % 57.1 % (24.0-44.0); MEAN CORPUSCULAR HEMOGLOBIN 33.6 pg (27.0-33.0); MEAN CORPUSCULAR HGB CONC 33.3 g/dl (32.0-36.5); MEAN CORPUSCULAR VOLUME 100.9 fl (80.0-96.0); MONO # 0.2 10^3/uL (0.0-0.8); MONO % 7.9 % (0.0-5.0); NEUTROPHILS % 34.5 % (36.0-66.0)
[2019-04-03 06:40] LABS: BLOOD UREA NITROGEN 10 MG/DL (7-18); CALCIUM LEVEL 7.8 MG/DL (8.8-10.2); CARBON DIOXIDE LEVEL 29 MEQ/L (21-32); CHLORIDE LEVEL 108 MEQ/L (98-107); CREATININE FOR GFR 0.91 MG/DL (0.55-1.30); GLOMERULAR FILTRATION RATE > 60.0 (>32); GLUCOSE, FASTING 85 MG/DL (70-100); NEUTROPHILS # 0.7 10^3/uL (1.8-7.7); PLATELET COUNT, AUTOMATED 38 10^3/uL (150-450); POTASSIUM SERUM 4.4 MEQ/L (3.5-5.1); SODIUM LEVEL 141 MEQ/L (136-145); WHITE BLOOD COUNT 1.9 10^3/uL (4.0-10.0)
[2019-04-03] MEDS ORDERED: methylPREDNISolone INJ 125 MG/2 ML VIAL (J2930) IV ONE (09:00)
[2019-04-03] MEDS: FOLIC ACID 1 MG TAB PO SCH (09:33)
[2019-04-03] MEDS: CYANOCOBALAMIN 1,000 MCG/ML VIAL (J3420) IM SCH (09:34)
[2019-04-03] MEDS: ATORVASTATIN 20 MG TAB PO SCH (09:34)
[2019-04-03] MEDS ORDERED: VARIBAR NECTAR 40% w/v 240ML SUSP BTL As Ordered ONE (13:19)
[2019-04-03] MEDS ORDERED: VARIBAR PUDDING 40% w/v 230ML TUBE As Ordered ONE (13:19)
[2019-04-03] MEDS ORDERED: E-Z-PAQUE 96% w/w SUSP 176GM BTL As Ordered ONE (13:20)
[2019-04-03 14:00] VITALS: BP 80/58
[2019-04-03] MEDS ORDERED: NS 500 ML IV ONE (14:15)
[2019-04-03 14:29] LABS: ANTI DS-DNA AB <1:10 titer (.); ANTINUCLEAR ANTIBODIES DIRECT Negative (Negative); RNP ANTIBODIES <0.2 AI (0.0-0.9); SMITH ANTIBODIES <0.2 AI (0.0-0.9)
--- NOTE | 2019-04-03 14:44 | IPNPDOC ---
Text Note Date of Service The patient was seen on 04/03/19. NOTE S: patient seen and examined with chiquitaclemente in law present. patient states ready to go home. no CP, no dizziness, no SOB, no N. Emmanuel in law states she had intermittent dizzy episodes at home and poor appetite. labs reviewed with patient and daughter in law showing pancytopenia and worsening platelets. Patient is being seen for CVA and has been cleared by PT/OT. O: Vital as below General: pleasant NAD AAOx3 HRRR LCTA no W/R/R Ext: no edema Neuro: moves all 4 extremities. no gross motor/sensory weakness A/P: Embolic left parietal occipital and frontal subacute ischemic strokes with mild right hemiparesis - improving; She is on aspirin and atorvastatin. Will d/c ASA due to significant thrombocytopenia. PT/OT consulted.; follow up with neuro 2-4 weeks after discharge. 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 B12 and folate deficiency is being treated. Hemoglobin slowly dropping again, Maintain active T&S. Transfuse if Hgb <7. Hematology consulted and note reviewed " Pancytopenia is likely to be due to immunosuppressant therapy with methotrexate above her underlying bone marrow disorder cannot be ruled out." Currently patient has low vitamin B12 and folate which warrants replacement. May need bone marrow biopsy as outpateint if lab workup (pending) is negative. Thrombocytopenia - worse with higher doses of ASA 324 mg for CVA. Hold ASA for today and when platelets above 100, restart ASA at 81mg every other day; 1 dose IV Steroids, transfuse 1 unit pRBC. Unable to transfuse platelets due to protoc ol and availability. Hypotension. resolved - Antihypertensives were held on admission, and her blood pressure has improved. HTN - restart atenolol with hold parameters for SBP under 120 to avoid hypotensive in post stroke period Mild aortic stenosis on echocardiogram. Not hemodynamically significant. History of rheumatoid arthritis. She is on methotrexate as an outpatient, which might be contributing to her pancytopenia and this has been held. Carotid atherosclerosis. 50-69% stenosis of the internal carotid arteries (ICAs) bilaterally, which do not require an immediate intervention. Corynebacterium on urine culture. Not pathogenic, not treated/asymptomatic Possible d/c tomorrow as patient is cleared by PT/OT VS,Sam, I+O VS, Sam, I+O Laboratory Tests 04/03/19 05:46 Red Blood Count 2.20 L, Mean Corpuscular Volume 100.9 H, Mean Corpuscular Hemoglobin 33.6 H, Mean Corpuscular Hemoglobin Concent 33.3, Red Cell Distri bution Width 19.9 H, Neutrophils (%) (Auto) 34.5 L, Lymphocytes (%) (Auto) 57.1 H, Monocytes (%) (Auto) 7.9 H, Eosinophils (%) (Auto) 0.0, Basophils (%) (Auto) 0.0, Neutrophils # (Auto) 0.7 L, Lymphocytes # (Auto) 1.1 L, Monocytes # (Auto) 0.2, Eosinophils # (Auto) 0.0, Basophils # (Auto) 0.0, Calcium Level 7.8 L Vital Signs Date Time Temp Pulse Resp B/P (MAP) Pulse Ox O2 Delivery O2 Flow Rate FiO2 04/03/19 06:00 98.6 66 18 138/65 (89) 97 03/28/19 14:00 Room Air I&O- Last 24 Hours up to 6 AM 04/03/19 06:00 Intake Total 896 ml Output Total 1100 ml Balance -204 ml ADELIA HOUSER DO Apr 03, 2019 07:51
[2019-04-03 16:00] VITALS: BP 98/60
--- NOTE | 2019-04-03 17:15 | REP ---
Modified barium swallow: Fluoroscopy is performed by the the patient is fed foodstuff some varying consistencies by the speech pathologist, Dayanna Peres. There is no laryngeal penetration or aspiration during fluoroscopy. However, there is a round 5 mm nodule like structure projected within the lumen of the upper trachea throughout the study. Appears to be slightly mobile. This is nonspecific and could represent a polyp within the proximal trachea or could represent artifact in the soft tissues lateral to the trachea. The chest CT dated 02/21 2007 does not include this area of the trachea. A followup CT of the neck might be considered to determine if there is an intraluminal polyp. Alternatively, endoscopy could be performed. Please refer to the speech pathologist's detailed report for further information. Electronically Signed by Ion Ellsworth MD 04/03/2019 05:07 P
[2019-04-03] MEDS: ATENOLOL 25 MG TAB PO SCH (21:00)
[2019-04-03] MEDS: SIMVASTATIN 20 MG TAB PO SCH (21:37)
[2019-04-03 22:00] VITALS: BP 119/59
[2019-04-04 06:00] VITALS: BP 119/58
[2019-04-04 06:29] LABS: BASO % 0.2 % (0.0-1.0); HEMATOCRIT 24.6 % (36.0-47.0); HEMOGLOBIN 8.3 g/dl (12.0-15.5); LYMPH # 0.9 10^3/uL (1.5-4.5); LYMPH % 22.4 % (24.0-44.0); MEAN CORPUSCULAR HEMOGLOBIN 33.5 pg (27.0-33.0); MEAN CORPUSCULAR HGB CONC 33.7 g/dl (32.0-36.5); MEAN CORPUSCULAR VOLUME 99.2 fl (80.0-96.0); MONO # 0.2 10^3/uL (0.0-0.8); MONO % 5.1 % (0.0-5.0); NEUTROPHILS # 2.9 10^3/uL (1.8-7.7); NEUTROPHILS % 71.6 % (36.0-66.0); RED BLOOD COUNT 2.48 10^6/uL (4.00-5.40); WHITE BLOOD COUNT 4.1 10^3/uL (4.0-10.0)
[2019-04-04 06:33] LABS: PLATELET COUNT, AUTOMATED 34 10^3/uL (150-450)
[2019-04-04 06:59] LABS: BLOOD UREA NITROGEN 10 MG/DL (7-18); CALCIUM LEVEL 7.8 MG/DL (8.8-10.2); CARBON DIOXIDE LEVEL 28 MEQ/L (21-32); CHLORIDE LEVEL 108 MEQ/L (98-107); GLOMERULAR FILTRATION RATE > 60.0 (>32); GLUCOSE, FASTING 107 MG/DL (70-100); POTASSIUM SERUM 4.3 MEQ/L (3.5-5.1); SODIUM LEVEL 142 MEQ/L (136-145)
[2019-04-04] MEDS ORDERED: methylPREDNISolone INJ 125 MG/2 ML VIAL (J2930) IV ONE (08:00)
[2019-04-04] MEDS ORDERED: BISACODYL 5 MG TAB PO PRN (09:00)
[2019-04-04] MEDS ORDERED: MOM 30ML SUSPENSION UDC PO PRN (09:00)
[2019-04-04] MEDS: ATORVASTATIN 20 MG TAB PO SCH (09:04)
[2019-04-04] MEDS: CYANOCOBALAMIN 1,000 MCG/ML VIAL (J3420) IM SCH (09:04)
[2019-04-04] MEDS: FOLIC ACID 1 MG TAB PO SCH (09:04)
--- NOTE | 2019-04-04 12:12 | IPNPDOC ---
Text Note Date of Service The patient was seen on 04/04/19. NOTE S: patient ambulating in halls with walker and assistance. States feels stro nger today. states constipation, no N, no V, no HAYES, no CP, no SOB She is being seen for pancytopenia with severe thrombocytopenia, CVA and HTN (with cyclical afternoon hypotension). O: Vitals as below General: pleasant NAD AAOx3 HRRR LCTA no W/r/R Ext: no ankle edema Neuro: CN3-12 appears intact, no gross motor deficits (R and left strength =) Gait - using walker - steady/slow with impulsive behaviors (turning, not holding onto walker with both hands when talking, etc) A/P: Thrombocytopenia - worse with higher doses of ASA 324 mg for CVA. Hold ASA for today and when platelets above 100, restart ASA at 81mg every other day; IV Steroids, Unable to transfuse platelets due to protocol and availability. has follow up appointment with heme onc. 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 Will d/c ASA due to significant thrombocytopenia. PT/OT consulted.; follow up with neuro 2-4 weeks after discharge. 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 B12 and folate deficiency is being treated. Hemoglobin slowly dropping again, Maintain active T&S. Transfuse if Hgb <7. Hematology consulted and note reviewed " Pancytopenia is likely to be due to immunosuppressant therapy with methotrexate above her underlying bone marrow disorder cannot be ruled out." Currently patient has low vitamin B12 and folate which warrants replacement. May need bone marrow biopsy as outpatient if lab workup (pending) is negative. transfuse 1 unit pRBC 04/03/19 Hypotension. resolved - Antihypertensives were held on admission, and her blood pressure has improved and atenolol at HS - appears has hypotension in afternoon from evening dosing of med. HTN - restart atenolol with hold parameters for SBP under 120 to avoid hypotensive in post stroke period Mild aortic stenosis on echocardiogram. Not hemodynamically significant. History of rheumatoid arthritis. She is on methotrexate as an outpatient, which might be contributing to her pancytopenia and this has been held. Carotid atherosclerosis. 50-69% stenosis of the internal carotid arteries (ICAs) bilaterally, which do not require an immediate intervention. Corynebacterium on urine culture. Not pathogenic, not treated/asymptomatic Discharge on hold until platelets improve VS,Fishbone, I+O VS, Fishbone, I+O Laboratory Tests 04/04/19 06:07 Red Blood Count 2.48 L, Mean Corpuscular Volume 99.2 H, Mean Corpuscular Hemogl obin 33.5 H, Mean Corpuscular Hemoglobin Concent 33.7, Red Cell Distribution Width 18.6 H, Neutrophils (%) (Auto) 71.6 H, Lymphocytes (%) (Auto) 22.4 L, Monocytes (%) (Auto) 5.1 H, Eosinophils (%) (Auto) 0.0, Basophils (%) (Auto) 0.2, Neutrophils # (Auto) 2.9, Lymphocytes # (Auto) 0.9 L, Monocytes # (Auto) 0.2, Eosinophils # (Auto) 0.0, Basophils # (Auto) 0.0, Calcium Level 7.8 L Vital Signs Date Time Temp Pulse Resp B/P (MAP) Pulse Ox O2 Delivery O2 Flow Rate FiO2 04/04/19 06:00 96.8 68 18 119/58 (78) 100 I&O- Last 24 Hours up to 6 AM 04/04/19 06:00 Intake Total 1044 ml Output Total 500 ml Balance 544 ml ADELIA HOUSER DO Apr 04, 2019 07:56
[2019-04-04 14:00] VITALS: BP 119/85
[2019-04-04] MEDS: DOCUSATE SODIUM 100 MG CAP PO SCH (20:11)
[2019-04-04] MEDS: ATENOLOL 25 MG TAB PO SCH (20:11)
[2019-04-04] MEDS: SIMVASTATIN 20 MG TAB PO SCH (20:11)
[2019-04-04 22:00] VITALS: BP 143/79
[2019-04-05 06:00] VITALS: BP 121/76
[2019-04-05 06:27] LABS: HEMATOCRIT 25.3 % (36.0-47.0); HEMOGLOBIN 8.4 g/dl (12.0-15.5); MEAN CORPUSCULAR HEMOGLOBIN 33.3 pg (27.0-33.0); MEAN CORPUSCULAR HGB CONC 33.2 g/dl (32.0-36.5); MEAN CORPUSCULAR VOLUME 100.4 fl (80.0-96.0); RED BLOOD COUNT 2.52 10^6/uL (4.00-5.40); WHITE BLOOD COUNT 7.4 10^3/uL (4.0-10.0)
[2019-04-05 06:53] LABS: ALBUMIN 2.2 GM/DL (3.2-5.2); ALT/SGPT 33 U/L (12-78); BILIRUBIN,TOTAL 0.7 MG/DL (0.2-1.0); BLOOD UREA NITROGEN 16 MG/DL (7-18); CALCIUM LEVEL 8.1 MG/DL (8.8-10.2); CARBON DIOXIDE LEVEL 31 MEQ/L (21-32); CHLORIDE LEVEL 109 MEQ/L (98-107); CREATININE FOR GFR 0.94 MG/DL (0.55-1.30); GLOMERULAR FILTRATION RATE > 60.0 (>32); GLUCOSE, FASTING 114 MG/DL (70-100); POTASSIUM SERUM 4.6 MEQ/L (3.5-5.1); SODIUM LEVEL 143 MEQ/L (136-145); TOTAL PROTEIN 4.8 GM/DL (6.4-8.2)
[2019-04-05 06:56] LABS: PLATELET COUNT, AUTOMATED 17 10^3/uL (150-450)
[2019-04-05] MEDS ORDERED: diphenhydrAMINE 25 MG CAP PO ONE (08:00)
[2019-04-05] MEDS ORDERED: NS 1,000 ML IV SCH (08:00)
[2019-04-05] MEDS ORDERED: ACETAMINOPHEN TAB 650MG DOSE (2X325MG) PO ONE (08:00)
[2019-04-05] MEDS: FOLIC ACID 1 MG TAB PO SCH (08:45)
[2019-04-05] MEDS: ATORVASTATIN 20 MG TAB PO SCH (08:45)
[2019-04-05] MEDS: CYANOCOBALAMIN 1,000 MCG/ML VIAL (J3420) IM SCH (08:45)
--- NOTE | 2019-04-05 11:26 | IPNPDOC ---
Text Note Date of Service The patient was seen on 04/05/19. NOTE S: patient feels good. wants to go home. Family present in room. She has severe thrombocytopenia (17) and no response to steroids. Her last ASA dose was 04/02/19. She states no HAYES, no bruising, no active bleeding. Heme stool requested by family and negative for blood. O: Vital as below General: pleasant, NAD AAOx3 HRRR LCTA no W/R/R Ext: no edema Neuro: CN3-12 intact, no gross motor or sensory deficits. no residual right sided weakness to extremities noted. Gait - ambulates with walker A/P: Thrombocytopenia - worse with higher doses of ASA 324 mg for CVA. Hold ASA sinc e 04/02 and when platelets above 100, restart ASA at 160mg every day; patient had CVA while on daily 81mg ASA (without thrombocytopenia). She had thrombocytopenia on 325mg ASA daily. IV Steroids without improvement to platelets x 2 days, transfuse 2 platelets ; has follow up appointment with heme onc. 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 Will d/c ASA due to significant thrombocytopenia. PT/OT consulted.; follow up with neuro 2-4 weeks after discharge. 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 B12 and folate deficiency is being treated. Hemoglobin slowly dropping again, Maintain active T&S. Transfuse if Hgb <7. Hematology consulted and note reviewed " Pancytopenia is likely to be due to immunosuppressant therapy with methotrexate above her underlying bone marrow disorder cannot be ruled out." Currently patient has low vitamin B12 and folate which warrants replacement. May need bone marrow biopsy as outpatient if lab workup (pending) is negative. transfuse 1 unit pRBC 04/03/19 Hypotension. resolved - Antihypertensives were held on admission, and her blood pressure has improved and atenolol at HS - appears has hypotension in afternoon from evening dosing of med. HTN - restart atenolol with hold parameters for SBP under 120 to avoid hypotensive in post stroke period Mild aortic stenosis on echocardiogram. Not hemodynamically significant. History of rheumatoid arthritis. She is on methotrexate as an outpatient, which might be contributing to her pancytopenia and this has been held. Carotid atherosclerosis. 50-69% stenosis of the internal carotid arteries (ICAs) bilaterally, which do not require an immediate intervention. Corynebacterium on urine culture. Not pathogenic, not treated/asymptomatic Discharge on hold until platelets improve VS,Fishbone, I+O VS, Fishbone, I+O Laboratory Tests 04/05/19 05:50 Red Blood Count 2.52 L, Mean Corpuscular Volume 100.4 H, Mean Corpuscular Hemoglobin 33.3 H, Mean Corpuscular Hemoglobin Concent 33.2, Red Cell Distribution Width 18.8 H, Calcium Level 8.1 L, Aspartate Amino Transf (AST/SGOT) 26, Alanine Aminotransferase (ALT/SGPT) 33, Alkaline Phosphatase 65, Total Bilirubin 0.7, Total Protein 4.8 L, Albumin 2.2 L Vital Signs Date Time Temp Pulse Resp B/P (MAP) Pulse Ox O2 Delivery O2 Flow Rate FiO2 04/05/19 06:00 97.9 56 16 121/76 (76) 99 I&O- Last 24 Hours up to 6 AM 04/05/19 05:59 Intake Total 960 ml Output Total 1100 ml Balance -140 ml ADELIA HOUSER DO Apr 05, 2019 07:44
[2019-04-05 14:00] VITALS: BP 131/63
[2019-04-05] MEDS: SIMVASTATIN 20 MG TAB PO SCH (20:03)
[2019-04-05] MEDS: ATENOLOL 25 MG TAB PO SCH (20:04)
[2019-04-05] MEDS: DOCUSATE SODIUM 100 MG CAP PO SCH (20:04)
[2019-04-05 22:00] VITALS: BP 123/64
[2019-04-06 06:00] VITALS: BP 124/67
[2019-04-06 06:37] LABS: HEMATOCRIT 24.7 % (36.0-47.0); HEMOGLOBIN 8.1 g/dl (12.0-15.5); MEAN CORPUSCULAR HEMOGLOBIN 32.7 pg (27.0-33.0); MEAN CORPUSCULAR HGB CONC 32.8 g/dl (32.0-36.5); MEAN CORPUSCULAR VOLUME 99.6 fl (80.0-96.0); PLATELET COUNT, AUTOMATED 101 10^3/uL (150-450); RED BLOOD COUNT 2.48 10^6/uL (4.00-5.40); WHITE BLOOD COUNT 6.5 10^3/uL (4.0-10.0)
[2019-04-06 08:14] LABS: CYTOGENETICS FISH FOR PATH SO See Pathology Report
[2019-04-06] MEDS: CYANOCOBALAMIN 1,000 MCG/ML VIAL (J3420) IM SCH (09:35)
[2019-04-06] MEDS: ATORVASTATIN 20 MG TAB PO SCH (09:35)
[2019-04-06] MEDS: FOLIC ACID 1 MG TAB PO SCH (09:36)
[2019-04-06 14:00] VITALS: BP 126/68
--- NOTE | 2019-04-06 17:47 | IPNPDOC ---
Text Note Date of Service The patient was seen on 04/06/19. NOTE S: patient states feels great today. increased bruising to arms but no active bleeding O: vitals as below General : pleasant NAD AAOx3 HRRR Ext: arms with increased bruising A/P: Thrombocytopenia - worse with higher doses of ASA 324 mg for CVA. Hold ASA since 04/02 and now that platelets above 100, restart ASA at 160 every day until seen by neurology; patient had CVA while on daily 81mg ASA (without thrombocytopenia). She had thrombocytopenia on 325mg ASA daily. IV Steroids without improvement to platelets x 2 days, transfuse 2 platelets on 04/05/19 and increased from 17 to 101 ; has follow up appointment with heme onc. Sam AGUIRRE, I+O VSSam, I+O Laboratory Tests 04/06/19 06:21 Red Blood Count 2.48 L, Mean Corpuscular Volume 99.6 H, Mean Corpuscular Hemoglobin 32.7, Mean Corpuscular Hemoglobin Concent 32.8, Red Cell Distribution Width 20.0 H Vital Signs Date Time Temp Pulse Resp B/P (MAP) Pulse Ox O2 Delivery O2 Flow Rate FiO2 04/06/19 14:00 98.7 66 18 126/68 (87) 98 I&O- Last 24 Hours up to 6 AM 04/06/19 06:00 Intake Total 654 ml Output Total 400 ml Balance 254 ml ADELIA HOUSER DO Apr 06, 2019 17:47
[2019-04-06] MEDS: SIMVASTATIN 20 MG TAB PO SCH (20:30)
[2019-04-06] MEDS: DOCUSATE SODIUM 100 MG CAP PO SCH (20:30)
[2019-04-06 20:31] VITALS: BP 131/79
[2019-04-06] MEDS: ATENOLOL 25 MG TAB PO SCH (20:31)
[2019-04-06 22:00] VITALS: BP 131/79
[2019-04-07 06:00] VITALS: BP 134/61
[2019-04-07] MEDS: CYANOCOBALAMIN 1,000 MCG/ML VIAL (J3420) IM SCH (08:20)
[2019-04-07] MEDS: FOLIC ACID 1 MG TAB PO SCH (08:20)
[2019-04-07] MEDS: ATORVASTATIN 20 MG TAB PO SCH (08:20)
[2019-04-07] MEDS ORDERED: ASPI81TA26 PO (09:23)
[2019-04-07] MEDS ORDERED: FOLI1TAB11 PO (09:23)
--- NOTE | 2019-04-07 16:46 | DS.PDOC ---
Discharge Summary General Date of Admission Mar 28, 2019 at 11:32 Date of Discharge 04/07/19 Primary Care Physician: Marcio Herrera Attending Physician: ADELIA HOUSER DO Specialist/Consultants Involve: REG DILLARD MD Specialist/Consultants Involve Dr Abhi Bartholomew ([facility]) Discharge Summary PROCEDURES PERFORMED DURING STAY: 04/03/19 transfused 1 unit pRBC 04/05/19 transfused 2 packets platelets ADMITTING DIAGNOSES: Stroke Hypotension. Rheumatoid arthritis Macrocytic anemia. History of melena. 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 HTN Mild aortic stenosis on echocardiogram. History of rheumatoid arthritis. Carotid atherosclerosis. Corynebacterium on urine culture. Not pathogenic, not treated/asymptomatic COMPLICATIONS/CHIEF COMPLAINT: Stroke. HISTORY OF PRESENT ILLNESS: 83-year-old who presents with right hemiparesis 4 days prior to admission. She was camping with family, when on March 14 they noticed that she had right hemiparesis. See H&P for details. HOSPITAL COURSE: Patient admitted, PT/OT and ST consulted for completed stroke. ST recommended regular diet, thin liquids, upright position, small bites/sips. Neurology consulted (cardiac echo and carotid US performed as below). MRI head with large acute left parieto-occipital region with several smaller acute infarcts . Neurology recommended ASA 324mg daily (patient had been on 81mg daily). Patient developed severe thrombocytopenia (platelets 17) with high dose ASA and medication stopped, 48 hour IV steroids given without improvement. transfused 2 pack platelets and prior to discharge, platelets were 100. She was started back on ASA 81mg daily prior to discharge and will need to follow up with neurology for possible increase in ASA 162mg daily. Heme/onc consulted regarding her pancytopenia. Hematology recommended possible outpatient bone marrow biopsy because pancytopenia may be due to bone marrow or from methotrexate for RA. Patient continue to progress well and regained use of right upper and lower extremity - was cleared by PT/OT for home health services. She is being discharged in stable condition and reviewed with patient and family warning signs of stroke and to come within the ponce hour of onset of symptoms. DISCHARGE MEDICATIONS: Please see below. ALLERGIES: Please see below. PHYSICAL EXAMINATION ON DISCHARGE: VITAL SIGNS: Please see below. GENERAL: pleasant NAD AAOx3 Heart -irreg/irreg - rate controlled LCTA no W/r/R Ext: no edema; Neuro: CN3-12 intact, no gross motor or sensory deficits LABORATORY DATA: Please see below. IMAGING: MRI/MRA brain IMPRESSION: 1. Large acute infarct in the left parieto-occipital region with several smaller acute infarcts elsewhere in the left parietal and frontal lobes. 2. Moderate chronic white matter disease. 3. No intracranial hemorrhage or mass identified. Carotid US: 50-69% stenosis of the internal carotid arteries (ICAs) bilaterally, which do not require an immediate intervention. 03/29/19 ECHO CONCLUSIONS: 1. Moderately-severe focal thickening and focal calcific deposits of a 3-cusp aortic valve. Mild reduction in aortic cusp mobility. Very mild aortic stenosis. No aortic regurgitation. 2. Normal left ventricle internal dimensions and wall thickness. Normal regional LV wall motion and wall thickening. Normal LV systolic function. Grade 1 LV diastolic dysfunction. 3. Mild left atrial dilatation. 4. Moderate mitral annular calcification. No mitral regurgitation or stenosis. 5. Suggestive of mild elevation of estimated right ventricle systolic pressure. Very mild tricuspid regurgitation PROGNOSIS: good ACTIVITY: as tolerated with front wheeled walker DIET: regular, thin liquids DISCHARGE PLAN: discharge home with services DISCHARGE INSTRUCTIONS: 1. follow up with the cancer center in 1-2 weeks to review labs and pancytopenia workup (started in hospital) - CBC 1 week at cancer center 2. follow up with wilmar Dillard in 2 weeks after discharge 3, Aspirin 81mg daily (monitor for thrombocytopenia) ITEMS TO FOLLOWUP ON ON OUTPATIENT: 1. cbc 2. possible bone marrow biopsy as outpatient DISCHARGE CONDITION: stable and improved TIME SPENT ON DISCHARGE: 42 minutes. Vital Signs/I&Os Vital Signs Date Time Temp Pulse Resp B/P (MAP) Pulse Ox O2 Delivery O2 Flow Rate FiO2 04/07/19 06:00 98.3 60 18 134/61 (85) 97 I&O- Last 24 Hours up to 6 AM 04/07/19 06:00 Intake Total 1600 ml Output Total 1000 ml Balance 600 ml Microbiology Microbiology 03/28/19 Blood Culture - Final, Complete NO GROWTH AFTER 5 DAYS 03/28/19 Blood Culture - Final, Complete NO GROWTH AFTER 5 DAYS 04/04/19 Stool Occult Blood (REX) - Final, Complete 03/28/19 Urine Culture - Final, Complete Corynebacterium Species Discharge Medications Scheduled Aspirin (Aspirin EC) 81 Mg Tablet.dr, 1 TAB PO DAILY for pain Atenolol (Atenolol) 25 Mg Tab, 25 MG PO QHS, (Reported) Folic Acid (Folic Acid) 1 Mg Tablet, 5 MG PO DAILY Furosemide (Furosemide) 20 Mg Tab, 30 MG PO DAILY, (Reported) Simvastatin (Simvastatin) 20 Mg Tab, 20 MG PO QHS, (Reported) Allergies Coded Allergies: Penicillins (Verified Allergy, Intermediate, hives, 03/28/19) ADELIA HOUSER DO Apr 07, 2019 09:25
[2019-04-09] MEDS ORDERED: FOLIC ACID 1 MG TAB PO SCH (09:00)
== END 2019-04-07 11:14 | disposition home or self-care (01) | DRG 65 ==
LOC: M ED 09:59 → M ED INP 11:32 → M PCU 15:19 → M MSPAV 04-01 01:47
PROVIDERS: ADMIT Family Medicine; ATTEND Family Medicine
PROC: 30233N1 Transfusion of Nonautologous Red Blood Cells into Peripheral Vein, Percutaneous Approach (ICD-10-PCS; principal; 2019-04-03)
PROC: 30233R1 Transfusion of Nonautologous Platelets into Peripheral Vein, Percutaneous Approach (ICD-10-PCS; 2019-04-05)
DX: I63.449 Cerebral infarction due to embolism of unspecified cerebellar artery (principal); I69.351 Hemiplegia and hemiparesis following cerebral infarction affecting right dominant side; D61.818 Other pancytopenia; D69.6 Thrombocytopenia, unspecified; I10 Essential (primary) hypertension; I35.0 Nonrheumatic aortic (valve) stenosis; I95.9 Hypotension, unspecified; I69.391 Dysphagia following cerebral infarction; M06.9 Rheumatoid arthritis, unspecified; E53.8 Deficiency of other specified B group vitamins; Z88.0 Allergy status to penicillin; E78.5 Hyperlipidemia, unspecified; Z85.820 Personal history of malignant melanoma of skin; J44.9 Chronic obstructive pulmonary disease, unspecified; Z79.899 Other long term (current) drug therapy; I65.23 Occlusion and stenosis of bilateral carotid arteries

== ENCOUNTER → 2019-06-12 | Outpatient (CLI) | payer MEDICARE, OTHER ==
[~2019-06-12] MED LIST changes: +ASPI81TA26 PO; +B-121TAB3 PO; +FOLI1TAB11 PO
== END ==
LOC: M LRY 12:56
PROVIDERS: ATTEND Nurse Practitioner
DX: L40.0 Psoriasis vulgaris (principal)

== ENCOUNTER → 2019-12-09 | Outpatient (CLI) | payer MEDICARE, OTHER ==
[~2019-12-09] MED LIST changes: -SIMV20TA2 PO; +SIMV20TA22 PO
[2019-12-09 19:27] LABS: BASO % 0.8 % (0.0-1.0); HEMATOCRIT 45.4 % (36.0-47.0); HEMOGLOBIN 13.6 g/dl (12.0-15.5); LYMPH # 1.4 10^3/uL (1.5-5.0); LYMPH % 34.5 % (24.0-44.0); MEAN CORPUSCULAR HEMOGLOBIN 26.8 pg (27.0-33.0); MEAN CORPUSCULAR VOLUME 89.5 fl (80.0-96.0); MONO # 0.3 10^3/uL (0.0-0.8); MONO % 6.5 % (0.0-5.0); NEUTROPHILS # 2.3 10^3/uL (1.5-8.5); NEUTROPHILS % 58.2 % (36.0-66.0); PLATELET COUNT, AUTOMATED 159 10^3/uL (150-450); RED BLOOD COUNT 5.07 10^6/uL (4.00-5.40)
[2019-12-09 19:34] LABS: ALBUMIN 3.2 GM/DL (3.2-5.2); BILIRUBIN,TOTAL 0.7 MG/DL (0.2-1.0); CALCIUM LEVEL 8.7 MG/DL (8.8-10.2); CREATININE FOR GFR 1.65 MG/DL (0.55-1.30); GLOMERULAR FILTRATION RATE 31.6 (>32); POTASSIUM SERUM 4.3 MEQ/L (3.5-5.1); TOTAL PROTEIN 7.2 GM/DL (6.4-8.2)
[2019-12-09 19:41] LABS: FOLATE > 24.0 NG/ML; VITAMIN B12 LEVEL 1434 PG/ML
[2019-12-09 19:42] LABS: TOTAL 25(OH) VITAMIN D 18.9 NG/ML (30.0-100.0)
[2019-12-14 00:06] LABS: VITAMIN B1 LEVEL WHOLE BLOOD 130.9 nmol/L (66.5-200.0); VITAMIN B6,PYRIDOXAL PHOSPHATE 5.2 ug/L (2.0-32.8); VITAMIN E(ALPHA TOCOPHEROL) 11.7 mg/L (9.0-29.0); VITAMIN E(GAMMA TOCOPHEROL) 1.5 mg/L (0.5-4.9)
== END ==
LOC: M LRY 13:29
PROVIDERS: ATTEND Psychiatry & Neurology Neurology
DX: D61.818 Other pancytopenia (principal); D64.9 Anemia, unspecified; D51.9 Vitamin B12 deficiency anemia, unspecified; E51.9 Thiamine deficiency, unspecified; Z86.73 Personal history of transient ischemic attack (TIA), and cerebral infarction without residual deficits; Z79.899 Other long term (current) drug therapy

== ENCOUNTER → 2020-07-08 | Outpatient (CLI) | payer MEDICARE, OTHER ==
--- NOTE | 2020-07-08 15:30 | REP ---
INDICATION: L40.0, Z51.81, Z79.899. COMPARISON: 03/28/2019 a portable exam TECHNIQUE: PA and lateral views FINDINGS: The superior mediastinal structures are midline. The cardiac silhouette is unremarkable in size, shape, and position. The diaphragmatic surfaces of the lungs are regular, and the costophrenic angles are clear. The pulmonary rodrigues are clear. The imaged osseous structures are intact. There is an incidental calcified granuloma in the right hilum and in the right lower lobe status quo. IMPRESSION: There is no acute cardiopulmonary disease. <Electronically signed by Rito Weeks > 07/08/20 [id number]
== END ==
LOC: M WUC 12:52
PROVIDERS: ATTEND Nurse Practitioner Family
DX: L40.0 Psoriasis vulgaris (principal); Z51.81 Encounter for therapeutic drug level monitoring; Z79.899 Other long term (current) drug therapy

== ENCOUNTER → 2021-03-15 | Outpatient (CLI) | payer MEDICARE, OTHER ==
--- NOTE | 2021-03-15 11:05 | REP ---
INDICATION: EDEMA. COMPARISON: None. TECHNIQUE: Multiple ultrasonographic images of the deep venous structures of the left lower extremity were obtained from the inguinal ligament to the ankle. Venous compression techniques, color doppler imaging, and augmentation techniques were also obtained where appropriate. As per the ACR guidelines the anterior tibial vein can not be effectively evaluated. Only compression techniques in the calf on the peroneal and posterior tibial veins was attempted/performed. FINDINGS: There is no abnormal echogenic material seen within any of the visualized deep venous structures that would suggest acute thrombosis. Coaptation is unremarkable throughout. Doppler interrogation shows an expected response to respiratory variability and augmentation in the thigh. Compression techniques in the calf were unobtainable. The color flow images show what appears to be a normal vascular pattern throughout the thigh. Seen in the posterior popliteal fossa and 18.7 x 1.5 x 4.2 cm size complex fluid collection was identified. IMPRESSION: There is no ultrasonographic evidence of deep venous thrombosis involving any of the visualized deep venous structures of the left lower extremity as described above. Due to technical parameters calf vein DVT can not be ruled out. A large Sheffield's cyst is suspected. This may have ruptured. MRI is recommended for further evaluation. <Electronically signed by Rito Weeks > 03/15/21 [id number]
== END ==
LOC: M RAD 09:59
PROVIDERS: ATTEND Physician Assistant
DX: R60.0 Localized edema (principal); R93.89 Abnormal findings on diagnostic imaging of other specified body structures

== ENCOUNTER 2021-04-06 10:09 | Emergency (ER) | payer MEDICARE, OTHER ==
[~2021-04-06] VITALS: Ht 167.6 cm; Wt 80.5 kg
[2021-04-06] MEDS ORDERED: TALT80IN5 SC (10:25)
[2021-04-06 13:54] VITALS: BP 139/67
== END 2021-04-06 14:09 | disposition home or self-care (01) ==
LOC: EDBD 10:09 → M ED 10:09
DX: S81.811A Laceration without foreign body, right lower leg, initial encounter (principal); W01.0XXA Fall on same level from slipping, tripping and stumbling without subsequent striking against object, initial encounter; Y92.018 Other place in single-family (private) house as the place of occurrence of the external cause; J44.9 Chronic obstructive pulmonary disease, unspecified; Z86.73 Personal history of transient ischemic attack (TIA), and cerebral infarction without residual deficits; Z79.899 Other long term (current) drug therapy; Z79.82 Long term (current) use of aspirin; Z88.0 Allergy status to penicillin; J30.81 Allergic rhinitis due to animal (cat) (dog) hair and dander

== ENCOUNTER → 2021-06-14 | Outpatient (CLI) | payer MEDICARE, OTHER ==
[~2021-06-14] MED LIST changes: +TALT80IN5 SC
--- NOTE | 2021-06-14 15:57 | REP ---
INDICATION: PSORIASIS VULGARIS. COMPARISON: 07/08/2020 TECHNIQUE: PA and lateral FINDINGS: The superior mediastinal structures are midline. The cardiac silhouette is unremarkable in size, shape, and position. The diaphragmatic surfaces of the lungs are regular, and the costophrenic angles are clear. The pulmonary rodrigues are clear. The imaged osseous structures are intact. IMPRESSION: There is no acute cardiopulmonary disease. No significant change compared to the prior exam. <Electronically signed by Rito Weeks > 06/14/21 [id number]
[2021-06-14 18:23] LABS: BASO % 0.4 % (0.0-1.0); HEMOGLOBIN 12.4 g/dl (12.0-15.5); LYMPH # 0.9 10^3/uL (1.5-5.0); LYMPH % 35.8 % (24.0-44.0); MEAN CORPUSCULAR HGB CONC 29.5 g/dl (32.0-36.5); MEAN CORPUSCULAR VOLUME 88.1 fl (80.0-96.0); MONO # 0.2 10^3/uL (0.0-0.8); MONO % 9.1 % (2.0-8.0); NEUTROPHILS # 1.4 10^3/uL (1.5-8.5); NEUTROPHILS % 54.3 % (36.0-66.0); PLATELET COUNT, AUTOMATED 196 10^3/uL (150-450); RED BLOOD COUNT 4.77 10^6/uL (4.00-5.40); WHITE BLOOD COUNT 2.5 10^3/uL (4.0-10.0)
[2021-06-14 18:39] LABS: ALBUMIN 2.8 GM/DL (3.2-5.2); ALT/SGPT 10 U/L (12-78); BILIRUBIN,DIRECT 0.3 MG/DL (0.0-0.2); BILIRUBIN,TOTAL 1.1 MG/DL (0.2-1.0); BLOOD UREA NITROGEN 14 MG/DL (7-18); CALCIUM LEVEL 8.7 MG/DL (8.8-10.2); CARBON DIOXIDE LEVEL 31 MEQ/L (21-32); CHLORIDE LEVEL 104 MEQ/L (98-107); CREATININE FOR GFR 1.46 MG/DL (0.55-1.30); GLOMERULAR FILTRATION RATE 36.2 (>32); GLUCOSE, FASTING 97 MG/DL (70-100); PHOSPHORUS LEVEL 3.1 MG/DL (2.5-4.9); POTASSIUM SERUM 4.4 MEQ/L (3.5-5.1); SODIUM LEVEL 139 MEQ/L (136-145); TOTAL PROTEIN 6.7 GM/DL (6.4-8.2)
[2021-06-14 18:40] LABS: HEPATITIS B SURFACE ANTIBODY NEGATIVE (POSITIVE)
[2021-06-14 19:19] LABS: HIV 1&2 SCREEN CENTAUR NEGATIVE (NEGATIVE)
== END ==
LOC: M PLAIMG 13:09
PROVIDERS: ATTEND Family Medicine
DX: L40.0 Psoriasis vulgaris (principal)

== ENCOUNTER → 2022-05-23 | Outpatient (REF) | payer MEDICARE, OTHER ==
[2022-05-23 18:41] LABS: HEMATOCRIT 43.9 % (36.0-47.0); HEMOGLOBIN 13.4 g/dl (12.0-15.5); LYMPH # 0.8 10^3/uL (1.5-5.0); LYMPH % 39.1 % (24.0-44.0); MEAN CORPUSCULAR HEMOGLOBIN 27.4 pg (27.0-33.0); MEAN CORPUSCULAR HGB CONC 30.5 g/dl (32.0-36.5); MEAN CORPUSCULAR VOLUME 89.8 fl (80.0-96.0); MONO # 0.2 10^3/uL (0.0-0.8); MONO % 9.4 % (2.0-8.0); NEUTROPHILS % 50.5 % (36.0-66.0); PLATELET COUNT, AUTOMATED 160 10^3/uL (150-450); RED BLOOD COUNT 4.89 10^6/uL (4.00-5.40); WHITE BLOOD COUNT 1.9 10^3/uL (4.0-10.0)
[2022-05-23 19:10] LABS: APPEARANCE, URINE MANUAL CLEAR (CLEAR); COLOR, URINE MANUAL YELLOW (YELLOW)
[2022-05-23 19:11] LABS: BILIRUBIN, URINE MANUAL NEGATIVE (NEGATIVE); BLOOD URINE MANUAL NEGATIVE (NEGATIVE); GLUCOSE, URINE (UA) MANUAL NEGATIVE (NEGATIVE); KETONE, URINE MANUAL NEGATIVE (NEGATIVE); LEUKOCYTE ESTERASE, URINE MAN NEGATIVE (NEGATIVE); NITRITE, URINE MANUAL NEGATIVE (NEGATIVE); PROTEIN, URINE MANUAL NEGATIVE (NEGATIVE); SPECIFIC GRAVITY,URINE MANUAL 1.004 (1.002-1.035); UROBILINOGEN, URINE MANUAL NORMAL (NORMAL)
[2022-05-23 19:24] LABS: ALBUMIN 3.2 GM/DL (3.2-5.2); BILIRUBIN,TOTAL 1.1 MG/DL (0.2-1.0); C REACTIVE PROTEIN QUANTITATIV 0.85 MG/DL (0.00-0.30); CALCIUM LEVEL 8.8 MG/DL (8.8-10.2); CREATININE FOR GFR 1.71 MG/DL (0.55-1.30); GLOMERULAR FILTRATION RATE 30.1 (>32); POTASSIUM SERUM 4.2 MEQ/L (3.5-5.1); TOTAL PROTEIN 7.2 GM/DL (6.4-8.2)
[2022-05-23 19:28] LABS: CREATININE,RANDOM URINE 15.2 MG/DL
[2022-05-23 19:55] LABS: ERYTHROCYTE SEDIMENTATION RATE 51 mm/hr (0-30)
[2022-05-25 13:15] LABS: SSA SJOGRENS A <0.2 AI (0.0-0.9); SSB SJOGRENS B <0.2 AI (0.0-0.9)
== END ==
LOC: M SFHCRHEU 14:33
PROVIDERS: ATTEND Internal Medicine Rheumatology
DX: M05.79 Rheumatoid arthritis with rheumatoid factor of multiple sites without organ or systems involvement (principal); R76.8 Other specified abnormal immunological findings in serum; M35.00 Sjogren syndrome, unspecified; L40.8 Other psoriasis

== ENCOUNTER → 2022-08-16 | Outpatient (CLI) | payer MEDICARE, OTHER | LOC: M WUC 11:44 | PROVIDERS: ATTEND Internal Medicine Rheumatology | DX: M05.79 Rheumatoid arthritis with rheumatoid factor of multiple sites without organ or systems involvement (principal); R76.8 Other specified abnormal immunological findings in serum; M35.00 Sjogren syndrome, unspecified; L40.8 Other psoriasis; M19.071 Primary osteoarthritis, right ankle and foot; M19.072 Primary osteoarthritis, left ankle and foot ==

== ENCOUNTER → 2022-10-12 | Outpatient (REF) | payer MEDICARE, OTHER | LOC: M SFHCWOUN 16:19 | PROVIDERS: ATTEND Physician Assistant | DX: S61.402A Unspecified open wound of left hand, initial encounter (principal); X58.XXXA Exposure to other specified factors, initial encounter; Y92.9 Unspecified place or not applicable; Y93.9 Activity, unspecified; Y99.9 Unspecified external cause status ==

== ENCOUNTER → 2022-11-10 | Outpatient (REF) | payer MEDICARE, OTHER ==
[~2022-11-10] MED LIST changes: +DOXY100C3 PO
== END ==
LOC: M SFHCWOUN 16:13
PROVIDERS: ATTEND Surgery
DX: S61.402A Unspecified open wound of left hand, initial encounter (principal); X58.XXXA Exposure to other specified factors, initial encounter; Y92.9 Unspecified place or not applicable; Y93.9 Activity, unspecified; Y99.9 Unspecified external cause status

== ENCOUNTER → 2022-11-14 | Outpatient (CLI) | payer MEDICARE, OTHER ==
[~2022-11-14] MED LIST changes: -DOXY100C3 PO
== END ==
LOC: M SOG 08:14
PROVIDERS: ATTEND Physician Assistant
DX: M79.642 Pain in left hand (principal); Z53.8 Procedure and treatment not carried out for other reasons

== ENCOUNTER 2022-11-22 06:46 | Day surgery (SDC) | payer MEDICARE, OTHER ==
[~2022-11-22] VITALS: Ht 167.6 cm; Wt 73.0 kg
[~2022-11-22 06:46] MED LIST changes: +DOXY100C3 PO; +ceFAZolin SOD 2 GM in IV 1 EA IV ONE
[2022-11-22] MEDS ORDERED: LR 1,000 ML IV SCH ×2 (07:10→10:25)
[2022-11-22] MEDS ORDERED: ALBUTEROL SULFATE 2.5MG/0.5ML INH NEB SOLN NEB ONE (08:15)
[2022-11-22] MEDS ORDERED: BACITRACIN OINTMENT 30GM TUBE As Ordered ONE (09:20)
[2022-11-22] MEDS ORDERED: BUPIVACAINE HCL 0.25% 30ML VIAL As Ordered ONE (09:20)
[2022-11-22] MEDS ORDERED: LIDOCAINE W/EPINEPHRINE 1% 20ML VIAL As Ordered ONE (09:20)
[2022-11-22] MEDS ORDERED: propofoL 200 MG/20 ML VIAL As Ordered ONE (09:50)
[2022-11-22] MEDS ORDERED: fentaNYL 100 MCG/2 ML INJECTION As Ordered ONE (09:50)
[2022-11-22] MEDS ORDERED: ACETAMINOPHEN 1000MG 100ML IV BAG As Ordered ONE (09:50)
[2022-11-22] MEDS ORDERED: ONDANSETRON 4MG 2ML VIAL As Ordered ONE (09:50)
[2022-11-22] MEDS ORDERED: LIDOCAINE 2% 100MG/5ML SDV (FOR ANES.) As Ordered ONE (09:50)
[2022-11-22] MEDS ORDERED: KETOROLAC 60MG 2ML VIAL As Ordered ONE (09:50)
[2022-11-22] MEDS ORDERED: ePHEDrine SULFATE 25 MG/5 ML(5MG/ML) SYRINGE As Ordered ONE (09:56)
[2022-11-22] MEDS ORDERED: oxyCODONE 5MG TAB PO PRN (10:25)
[2022-11-22] MEDS ORDERED: fentaNYL 100 MCG/2 ML INJECTION IV PRN (10:25)
[2022-11-22] MEDS ORDERED: ONDANSETRON 4MG 2ML VIAL IV PRN (10:25)
[2022-11-22] MEDS ORDERED: MORPHINE 2 MG/ML 1ML VIAL IV PRN (10:25)
[2022-11-22] MEDS ORDERED: METOCLOPRAMIDE INJ 10MG/2ML VIAL IV PRN (10:25)
[2022-11-22 11:58] VITALS: BP 133/74
== END 2022-11-22 12:12 | disposition home or self-care (01) ==
LOC: M SDC 06:46 → EEVIPCON 06:46 → M SDC 12:12
PROVIDERS: ATTEND Orthopaedic Surgery Hand Surgery
DX: S61.402A Unspecified open wound of left hand, initial encounter (principal); M06.342 Rheumatoid nodule, left hand; X58.XXXA Exposure to other specified factors, initial encounter; Y92.89 Other specified places as the place of occurrence of the external cause; I10 Essential (primary) hypertension; J44.9 Chronic obstructive pulmonary disease, unspecified; J45.909 Unspecified asthma, uncomplicated; E66.9 Obesity, unspecified; Z68.30 Body mass index [BMI] 30.0-30.9, adult; E78.00 Pure hypercholesterolemia, unspecified; Z87.891 Personal history of nicotine dependence; Z79.899 Other long term (current) drug therapy; Z79.82 Long term (current) use of aspirin; Z79.2 Long term (current) use of antibiotics; Z88.0 Allergy status to penicillin; Z86.73 Personal history of transient ischemic attack (TIA), and cerebral infarction without residual deficits
CPT/HCPCS: 11043; 11044; 87070; 87075; 87077; 87186; 87205; J0131; J0690; J1100; J1885; J2405; J3010

== ENCOUNTER 2023-01-03 08:53 | Day surgery (SDC) | payer MEDICARE ==
[~2023-01-03] VITALS: Ht 162.6 cm; Wt 73.7 kg
[~2023-01-03 08:53] MED LIST changes: -ceFAZolin SOD 2 GM in IV 1 EA IV ONE
[2023-01-03] MEDS ORDERED: LR 1,000 ML IV SCH ×2 (09:25→11:20)
[2023-01-03] MEDS ORDERED: FOLI1TAB11 PO (09:27)
[2023-01-03] MEDS ORDERED: B-12100T2 PO (09:27)
[2023-01-03] MEDS ORDERED: ECOT81TA5 PO (09:27)
[2023-01-03] MEDS ORDERED: BACITRACIN OINTMENT 30GM TUBE As Ordered ONE (09:38)
[2023-01-03] MEDS ORDERED: BUPIVACAINE HCL 0.25% 30ML VIAL As Ordered ONE (09:38)
[2023-01-03] MEDS ORDERED: ceFAZolin SOD 2 GM in IV 1 EA IV ONE (09:40)
[2023-01-03] MEDS ORDERED: ALBUTEROL SULFATE 2.5MG/0.5ML INH NEB SOLN NEB ONE (10:00)
[2023-01-03] MEDS ORDERED: ALBUTEROL SULFATE 2.5MG/0.5ML INH NEB SOLN As Ordered ONE (10:01)
[2023-01-03] MEDS ORDERED: ONDANSETRON 4MG 2ML VIAL As Ordered ONE (10:37)
[2023-01-03] MEDS ORDERED: ACETAMINOPHEN 1000MG 100ML IV BAG As Ordered ONE (10:37)
[2023-01-03] MEDS ORDERED: LIDOCAINE 2% 100MG/5ML SDV (FOR ANES.) As Ordered ONE (10:37)
[2023-01-03] MEDS ORDERED: fentaNYL 100 MCG/2 ML INJECTION As Ordered ONE (10:37)
[2023-01-03] MEDS ORDERED: ePHEDrine SULFATE 25 MG/5 ML(5MG/ML) SYRINGE As Ordered ONE (10:37)
[2023-01-03] MEDS ORDERED: METOCLOPRAMIDE INJ 10MG/2ML VIAL As Ordered ONE (10:37)
[2023-01-03] MEDS ORDERED: propofoL 200 MG/20 ML VIAL As Ordered ONE (10:37)
[2023-01-03] MEDS ORDERED: ONDANSETRON 4MG 2ML VIAL IV PRN (11:20)
[2023-01-03] MEDS ORDERED: fentaNYL 100 MCG/2 ML INJECTION IV PRN (11:20)
[2023-01-03] MEDS ORDERED: oxyCODONE 5MG TAB PO PRN (11:20)
[2023-01-03] MEDS ORDERED: HYDROMORPHONE HCL 0.5 MG/ 0.5 ML SYRINGE IV PRN (11:20)
[2023-01-03 12:55] VITALS: BP 113/53; TEMP 97.6; O2SAT 94
== END 2023-01-03 13:02 | disposition home or self-care (01) ==
LOC: M SDC 08:53
PROVIDERS: ATTEND Orthopaedic Surgery Hand Surgery
DX: S61.402A Unspecified open wound of left hand, initial encounter (principal); S61.203A Unspecified open wound of left middle finger without damage to nail, initial encounter; M06.342 Rheumatoid nodule, left hand; X58.XXXA Exposure to other specified factors, initial encounter; Y92.89 Other specified places as the place of occurrence of the external cause; I10 Essential (primary) hypertension; E78.00 Pure hypercholesterolemia, unspecified; R60.0 Localized edema; R19.7 Diarrhea, unspecified; Z86.73 Personal history of transient ischemic attack (TIA), and cerebral infarction without residual deficits; J45.909 Unspecified asthma, uncomplicated; Z88.0 Allergy status to penicillin; Z79.899 Other long term (current) drug therapy; Z79.82 Long term (current) use of aspirin
CPT/HCPCS: 26170; 26180; 87070; 87075; 87077; 87186; 87205; J0131; J0690; J1100; J1170; J2405; J2765; J3010

== ENCOUNTER → 2023-04-23 | Outpatient (CLI) | payer MEDICARE, OTHER ==
[~2023-04-23] MED LIST changes: +B-12100T2 PO; +ECOT81TA5 PO; -K-TA10TA2 PO; +POTA-165 PO
== END ==
LOC: M WUC 11:22
PROVIDERS: ATTEND Nurse Practitioner Family
DX: L40.0 Psoriasis vulgaris (principal); Z79.899 Other long term (current) drug therapy; Z51.81 Encounter for therapeutic drug level monitoring

== ENCOUNTER → 2023-07-05 | Outpatient (REF) | payer MEDICARE, OTHER | LOC: M SFHCWOUN 17:08 | PROVIDERS: ATTEND Physician Assistant | DX: S61.201A Unspecified open wound of left index finger without damage to nail, initial encounter (principal); X58.XXXA Exposure to other specified factors, initial encounter; Y92.9 Unspecified place or not applicable; Y93.9 Activity, unspecified; Y99.9 Unspecified external cause status ==

== ENCOUNTER 2023-09-21 10:38 | Day surgery (SDC) | payer MEDICARE, OTHER ==
[~2023-09-21] VITALS: Ht 170.2 cm; Wt 73.9 kg
[~2023-09-21 10:38] MED LIST changes: +LIDOCAINE W/EPINEPHRINE 1% 20ML VIAL XX ONE; +SODIUM BICARBONATE 8.4% INJ 50MEQ 50ML VIAL XX ONE
[2023-09-21] MEDS ORDERED: LR 1,000 ML IV SCH (11:25)
[2023-09-21] MEDS ORDERED: propofoL 200 MG/20 ML VIAL As Ordered ONE (13:09)
[2023-09-21] MEDS ORDERED: LIDOCAINE 2% 100MG/5ML SDV (FOR ANES.) As Ordered ONE (13:09)
[2023-09-21] MEDS ORDERED: fentaNYL 100 MCG/2 ML INJECTION As Ordered ONE (13:14)
[2023-09-21] MEDS ORDERED: ONDANSETRON 4MG 2ML VIAL As Ordered ONE (13:15)
[2023-09-21] MEDS ORDERED: ACETAMINOPHEN 1000MG 100ML IV BAG As Ordered ONE (14:26)
[2023-09-21] MEDS: BACITRACIN OINTMENT 30GM TUBE As Ordered ONE (14:38)
[2023-09-21] MEDS: ceFAZolin 2 GM/D5W 50 ML IV BAG As Ordered ONE (14:38)
[2023-09-21 15:20] VITALS: BP 135/72; TEMP 97.9; O2SAT 97
== END 2023-09-21 15:41 | disposition home or self-care (01) ==
LOC: M SDC 10:38
PROVIDERS: ATTEND Orthopaedic Surgery Hand Surgery
DX: M06.342 Rheumatoid nodule, left hand (principal); Z86.73 Personal history of transient ischemic attack (TIA), and cerebral infarction without residual deficits; I10 Essential (primary) hypertension; E78.00 Pure hypercholesterolemia, unspecified; Z88.0 Allergy status to penicillin; Z79.899 Other long term (current) drug therapy; Z87.891 Personal history of nicotine dependence
CPT/HCPCS: 11043; 87070; 87075; 87077; 87186; 87205; J0131; J0665; J0690; J1100; J2405; J3010

== ENCOUNTER → 2023-10-08 | Outpatient (CLI) | payer MEDICARE, OTHER ==
[~2023-10-08] MED LIST changes: -LIDOCAINE W/EPINEPHRINE 1% 20ML VIAL XX ONE; -SODIUM BICARBONATE 8.4% INJ 50MEQ 50ML VIAL XX ONE
[2023-10-08 17:07] LABS: ALBUMIN 3.1 G/DL (3.2-5.2); ALKALINE PHOSPHATASE 91 U/L (46-116); ALT/SGPT < 9 U/L (7.0-40); AST/SGOT 12 U/L (<34); BILIRUBIN,DIRECT 0.3 MG/DL (<0.4); BILIRUBIN,TOTAL 0.7 MG/DL (0.3-1.2); BLOOD UREA NITROGEN 28 MG/DL (9-23); CALCIUM LEVEL 8.1 MG/DL (8.3-10.6); CARBON DIOXIDE LEVEL 29 MMOL/L (20-31); CHLORIDE LEVEL 107 MMOL/L (98-107); CREATININE FOR GFR 1.39 MG/DL (0.55-1.30); GLOMERULAR FILTRATION RATE 38.1 (>32); GLUCOSE, FASTING 83 MG/DL (74-106); PHOSPHORUS LEVEL 3.4 MG/DL (2.4-5.1); POTASSIUM SERUM 4.6 MMOL/L (3.5-5.1); SODIUM LEVEL 141 MMOL/L (136-145); TOTAL PROTEIN 6.2 G/DL (5.7-8.2)
[2023-10-08 17:18] LABS: BASO % 0.5 % (0.0-1.0); HEMATOCRIT 37.1 % (36.0-47.0); HEMOGLOBIN 11.4 g/dl (12.0-15.5); LYMPH # 0.9 10^3/uL (1.5-5.0); LYMPH % 24.4 % (24.0-44.0); MEAN CORPUSCULAR HEMOGLOBIN 27.4 pg (27.0-33.0); MEAN CORPUSCULAR HGB CONC 30.7 g/dl (32.0-36.5); MEAN CORPUSCULAR VOLUME 89.2 fl (80.0-96.0); MONO # 0.5 10^3/uL (0.0-0.8); MONO % 12.6 % (2.0-8.0); NEUTROPHILS # 2.3 10^3/uL (1.5-8.5); NEUTROPHILS % 62.2 % (36.0-66.0); PLATELET COUNT, AUTOMATED 161 10^3/uL (150-450); RED BLOOD COUNT 4.16 10^6/uL (4.00-5.40); WHITE BLOOD COUNT 3.7 10^3/uL (4.0-10.0)
[2023-10-08 17:33] LABS: HIV 1&2 SCREEN NEGATIVE (NEGATIVE)
[2023-10-08 17:41] LABS: HEPATITIS C VIRUS ABY INDEX 0.06 INDEX (<0.8)
[2023-10-10 20:08] LABS: HBV HBV DNA not detected IU/mL (.)
== END ==
LOC: M WUC 13:17
PROVIDERS: ATTEND Nurse Practitioner Family
DX: L40.0 Psoriasis vulgaris (principal); Z51.81 Encounter for therapeutic drug level monitoring; Z79.899 Other long term (current) drug therapy

== ENCOUNTER → 2023-10-23 | Outpatient (CLI) | payer MEDICARE, OTHER | LOC: M SOG 16:20 | PROVIDERS: ATTEND Physician Assistant | DX: M25.571 Pain in right ankle and joints of right foot (principal); Z53.9 Procedure and treatment not carried out, unspecified reason ==

== ENCOUNTER → 2023-10-24 | Outpatient (CLI) | payer MEDICARE, OTHER | LOC: M SOG 08:28 | PROVIDERS: ATTEND Physician Assistant | DX: M19.071 Primary osteoarthritis, right ankle and foot (principal) ==

== ENCOUNTER → 2023-10-29 | Outpatient (REF) | payer MEDICARE, OTHER | LOC: M LAB REF 16:41 | PROVIDERS: ATTEND Physician Assistant | DX: S91.001A Unspecified open wound, right ankle, initial encounter (principal); Y92.9 Unspecified place or not applicable; Y93.9 Activity, unspecified; B95.61 Methicillin susceptible Staphylococcus aureus infection as the cause of diseases classified elsewhere ==

== ENCOUNTER → 2024-02-06 | Outpatient (CLI) | payer MEDICARE, OTHER | LOC: M RAD 14:06 | PROVIDERS: ATTEND Physician Assistant | DX: I87.311 Chronic venous hypertension (idiopathic) with ulcer of right lower extremity (principal); I77.89 Other specified disorders of arteries and arterioles; M79.604 Pain in right leg; R22.41 Localized swelling, mass and lump, right lower limb ==

== ENCOUNTER → 2024-03-12 | Outpatient (REF) | payer MEDICARE, OTHER ==
[~2024-03-12] MED LIST changes: +ACET-683 PO; +B-12100020 PO; +CEPH500C PO; +HEPA500023 SQ; +OXYC-517 PO; +SENN-52 PO; +TALT80IN7 SQ
== END ==
LOC: M SFHCDERM 12:20
PROVIDERS: ATTEND Physician Assistant
DX: L97.312 Non-pressure chronic ulcer of right ankle with fat layer exposed (principal)

== ENCOUNTER 2024-03-16 10:46 | Inpatient (IN) | payer MEDICARE, OTHER ==
[~2024-03-16] VITALS: Ht 167.6 cm; Wt 78.3 kg
[~2024-03-16 10:46] MED LIST changes: -ACET-683 PO; -B-12100020 PO; -CEPH500C PO; -HEPA500023 SQ; -OXYC-517 PO; -SENN-52 PO; -TALT80IN7 SQ
[2024-03-16] MEDS: BOOSTRIX VACCINE (TETANUS/DIPHTH/ACEL. PERTUSSIS) 0.5ML SYR IM.IMMUN ONE (11:42)
[2024-03-16 12:09] LABS: BASO % 0.4 % (0.0-1.0); EOS # 0.5 10^3/uL (0.0-0.5); EOS % 10.2 % (0.0-3.0); HEMATOCRIT 33.8 % (36.0-47.0); HEMOGLOBIN 10.6 g/dl (12.0-15.5); LYMPH # 0.6 10^3/uL (1.5-5.0); LYMPH % 12.6 % (24.0-44.0); MEAN CORPUSCULAR HGB CONC 31.4 g/dl (32.0-36.5); MEAN CORPUSCULAR VOLUME 89.4 fl (80.0-96.0); MONO # 0.6 10^3/uL (0.0-0.8); MONO % 12.6 % (2.0-8.0); NEUTROPHILS # 2.9 10^3/uL (1.5-8.5); NEUTROPHILS % 63.3 % (36.0-66.0); PLATELET COUNT, AUTOMATED 218 10^3/uL (150-450); RED BLOOD COUNT 3.78 10^6/uL (4.00-5.40); WHITE BLOOD COUNT 4.6 10^3/uL (4.0-10.0)
[2024-03-16 12:20] LABS: INR 1.11; PROTHROMBIN TIME 13.9 SECONDS (12.5-14.5)
[2024-03-16 12:33] LABS: ALBUMIN 2.1 G/DL (3.2-5.2); BILIRUBIN,TOTAL 0.6 MG/DL (0.3-1.2); CALCIUM LEVEL 7.9 MG/DL (8.3-10.6); CREATININE FOR GFR 1.86 MG/DL (0.55-1.30); GLOMERULAR FILTRATION RATE 27.2 (>32); POTASSIUM SERUM 4.6 MMOL/L (3.5-5.1); TOTAL PROTEIN 5.4 G/DL (5.7-8.2)
[2024-03-16] MEDS ORDERED: MORPHINE 2 MG/ML 1ML VIAL IV PRN (14:20)
[2024-03-16] MEDS ORDERED: B-12100020 PO (14:35)
[2024-03-16] MEDS ORDERED: TALT80IN7 SQ (14:38)
[2024-03-16] MEDS ORDERED: HOME MED LIST COMPLETE! XX SCH (15:10)
[2024-03-16] MEDS: NS 1,000 ML IV SCH (16:48)
[2024-03-16] MEDS: ceFAZolin SOD 1 GM in D5W MINI-BAG PLUS 50 ML IV SCH (16:48)
[2024-03-16] MEDS: ACETAMINOPHEN TAB 650MG DOSE (2X325MG) PO PRN (16:56)
[2024-03-16] MEDS: MORPHINE 2 MG/ML 1ML VIAL IV PRN (20:08)
[2024-03-16] MEDS: SIMVASTATIN 20 MG TAB PO SCH (21:28)
[2024-03-17] VITALS (7 sets, daily range): BP systolic 112–141; BP diastolic 48–74; TEMP 97.2–97.5; O2SAT 90–96
[2024-03-17 06:57] LABS: HEMATOCRIT 32.3 % (36.0-47.0); MEAN CORPUSCULAR HEMOGLOBIN 27.7 pg (27.0-33.0); MEAN CORPUSCULAR VOLUME 89.5 fl (80.0-96.0); PLATELET COUNT, AUTOMATED 197 10^3/uL (150-450); RED BLOOD COUNT 3.61 10^6/uL (4.00-5.40); WHITE BLOOD COUNT 4.1 10^3/uL (4.0-10.0)
[2024-03-17 07:20] LABS: CALCIUM LEVEL 7.4 MG/DL (8.3-10.6); CREATININE FOR GFR 1.95 MG/DL (0.55-1.30); GLOMERULAR FILTRATION RATE 25.8 (>32); POTASSIUM SERUM 3.5 MMOL/L (3.5-5.1)
[2024-03-17] MEDS: FUROSEMIDE 20 MG TAB PO SCH (08:17)
[2024-03-17] MEDS: FOLIC ACID 1MG TAB PO SCH (08:17)
[2024-03-17] MEDS: hydrALAZINE 20MG/ML 1ML VIAL IV STA (09:59)
[2024-03-17] MEDS ORDERED: fentaNYL 100 MCG/2 ML INJECTION As Ordered ONE (14:31)
[2024-03-17] MEDS ORDERED: propofoL 200 MG/20 ML VIAL As Ordered ONE (14:32)
[2024-03-17] MEDS ORDERED: ONDANSETRON 4MG 2ML VIAL As Ordered ONE (14:33)
[2024-03-17] MEDS ORDERED: SUGAMMADEX SODIUM 500 MG/5 ML VIAL (BRIDION) As Ordered ONE (14:33)
[2024-03-17] MEDS ORDERED: LIDOCAINE 2% 100MG/5ML SDV (FOR ANES.) As Ordered ONE (14:33)
[2024-03-17] MEDS ORDERED: ACETAMINOPHEN 1000MG 100ML IV BAG As Ordered ONE (14:33)
[2024-03-17] MEDS ORDERED: ROCURONIUM BROMIDE 50MG/5ML VIAL As Ordered ONE (14:33)
[2024-03-17] MEDS: ceFAZolin 1GM VIAL As Ordered ONE (15:10)
[2024-03-17] MEDS: ceFAZolin SOD 2 GM in IV 1 EA IV SCH (23:48)
[2024-03-18 00:15] VITALS: BP 134/56; TEMP 97.2; O2SAT 93
[2024-03-18 01:40] LABS: BILIRUBIN,TOTAL 0.6 MG/DL (0.3-1.2); CALCIUM LEVEL 7.4 MG/DL (8.3-10.6); CREATININE FOR GFR 1.82 MG/DL (0.55-1.30); GLOMERULAR FILTRATION RATE 27.9 (>32); MAGNESIUM LEVEL 1.9 MG/DL (1.8-2.4); POTASSIUM SERUM 3.8 MMOL/L (3.5-5.1); TOTAL PROTEIN 4.8 G/DL (5.7-8.2)
[2024-03-18 03:52] VITALS: BP 122/58; TEMP 97.3; O2SAT 96
[2024-03-18 06:15] LABS: HEMATOCRIT 29.8 % (36.0-47.0); HEMOGLOBIN 9.2 g/dl (12.0-15.5); MEAN CORPUSCULAR HEMOGLOBIN 27.9 pg (27.0-33.0); MEAN CORPUSCULAR HGB CONC 30.9 g/dl (32.0-36.5); MEAN CORPUSCULAR VOLUME 90.3 fl (80.0-96.0); PLATELET COUNT, AUTOMATED 206 10^3/uL (150-450); WHITE BLOOD COUNT 5.6 10^3/uL (4.0-10.0)
[2024-03-18 06:39] LABS: CALCIUM LEVEL 7.3 MG/DL (8.3-10.6); CREATININE FOR GFR 1.8 MG/DL (0.55-1.30); GLOMERULAR FILTRATION RATE 28.3 (>32); POTASSIUM SERUM 3.8 MMOL/L (3.5-5.1)
[2024-03-18] MEDS: SENOKOT S TAB PO SCH (08:21)
[2024-03-18] MEDS: ACETAMINOPHEN 500 MG TAB PO SCH (08:21)
[2024-03-18] MEDS: oxyCODONE 5MG TAB PO PRN (09:52)
[2024-03-18] MEDS ORDERED: OXYC-517 PO (11:26)
[2024-03-18] MEDS ORDERED: SENN-52 PO (11:26)
[2024-03-18] MEDS ORDERED: ACET-683 PO (11:26)
[2024-03-18] MEDS ORDERED: HEPA500023 SQ (11:29)
[2024-03-18 12:00] VITALS: BP 126/58; TEMP 97.5; O2SAT 94
[2024-03-18] MEDS ORDERED: CEPH500C PO (12:53)
[2024-03-18] MEDS: ACETAMINOPHEN TAB 650MG DOSE (2X325MG) PO PRN (15:06)
[2024-03-18] MEDS ORDERED: ceFAZolin SOD 1 GM in D5W MINI-BAG PLUS 50 ML IV SCH (21:00)
[2024-03-18] MEDS ORDERED: HEPARIN SOD (PORCINE) 5000UNITS/ML 1ML VIAL/SYRINGE SQ SCH (21:00)
== END 2024-03-18 15:15 | DRG 481 ==
LOC: M ED 10:46 → EDBD 10:46 → M ED INP 13:30 → EEVIPCON 13:30 → M MSPAV 03-17 17:00
PROVIDERS: ADMIT Internal Medicine; ATTEND Internal Medicine Nephrology
PROC: 0QDG0ZZ Extraction of Right Tibia, Open Approach (ICD-10-PCS; 2024-03-17)
PROC: 0QS606Z Reposition Right Upper Femur with Intramedullary Internal Fixation Device, Open Approach (ICD-10-PCS; principal; 2024-03-17 10:00)
DX: S72.141A Displaced intertrochanteric fracture of right femur, initial encounter for closed fracture (principal); N17.9 Acute kidney failure, unspecified; T84.7XXA Infection and inflammatory reaction due to other internal orthopedic prosthetic devices, implants and grafts, initial encounter; I12.9 Hypertensive chronic kidney disease with stage 1 through stage 4 chronic kidney disease, or unspecified chronic kidney disease; E53.8 Deficiency of other specified B group vitamins; N18.30 Chronic kidney disease, stage 3 unspecified; M85.851 Other specified disorders of bone density and structure, right thigh; R19.7 Diarrhea, unspecified; W06.XXXA Fall from bed, initial encounter; Y92.003 Bedroom of unspecified non-institutional (private) residence as the place of occurrence of the external cause; L40.9 Psoriasis, unspecified; Y93.89 Activity, other specified; Y99.8 Other external cause status; M16.12 Unilateral primary osteoarthritis, left hip; Z86.73 Personal history of transient ischemic attack (TIA), and cerebral infarction without residual deficits; Z85.828 Personal history of other malignant neoplasm of skin

== ENCOUNTER 2024-03-18 11:43 | Inpatient (IN) | payer MEDICARE, OTHER ==
[~2024-03-18] VITALS: Ht 167.6 cm; Wt 79.2 kg
[~2024-03-18 11:43] MED LIST changes: +ACET-683 PO; +B-12100020 PO; +HEPA500023 SQ; +OXYC-517 PO; +SENN-52 PO; +TALT80IN7 SQ
[2024-03-18] MEDS ORDERED: CEPH500C PO (12:53)
[2024-03-18] MEDS ORDERED: BISACODYL 10MG SUPP PR PRN (14:05)
[2024-03-18 15:39] VITALS: BP 154/64; TEMP 98.3; O2SAT 96
[2024-03-18] MEDS: oxyCODONE 5MG TAB PO PRN (16:54)
[2024-03-18] MEDS: CEPHALEXIN 500 MG CAP PO SCH (16:54)
[2024-03-18 20:00] VITALS: BP 90/50; TEMP 97.2; O2SAT 95
[2024-03-18] MEDS: ACETAMINOPHEN 500 MG TAB PO SCH (20:09)
[2024-03-18] MEDS: HEPARIN SOD (PORCINE) 5000UNITS/ML 1ML VIAL/SYRINGE SC SCH (20:09)
[2024-03-18] MEDS: SIMVASTATIN 20 MG TAB PO SCH (20:10)
[2024-03-18] MEDS: SENOKOT S TAB PO SCH (20:10)
[2024-03-18 20:39] VITALS: BP 94/56
[2024-03-19 04:00] VITALS: BP 131/63; TEMP 97; O2SAT 97
[2024-03-19 07:07] LABS: BASO % 0.5 % (0.0-1.0); EOS # 0.6 10^3/uL (0.0-0.5); EOS % 14.4 % (0.0-3.0); HEMATOCRIT 27.5 % (36.0-47.0); HEMOGLOBIN 8.4 g/dl (12.0-15.5); LYMPH # 0.9 10^3/uL (1.5-5.0); LYMPH % 21.3 % (24.0-44.0); MEAN CORPUSCULAR HEMOGLOBIN 27.7 pg (27.0-33.0); MEAN CORPUSCULAR HGB CONC 30.5 g/dl (32.0-36.5); MEAN CORPUSCULAR VOLUME 90.8 fl (80.0-96.0); MONO # 0.4 10^3/uL (0.0-0.8); MONO % 8.6 % (2.0-8.0); NEUTROPHILS # 2.3 10^3/uL (1.5-8.5); NEUTROPHILS % 52.9 % (36.0-66.0); PLATELET COUNT, AUTOMATED 209 10^3/uL (150-450); RED BLOOD COUNT 3.03 10^6/uL (4.00-5.40); WHITE BLOOD COUNT 4.3 10^3/uL (4.0-10.0)
[2024-03-19] MEDS: FOLIC ACID 1MG TAB PO SCH (07:18)
[2024-03-19] MEDS: CYANOCOBALAMIN 500 MCG TAB PO SCH (07:18)
[2024-03-19 07:31] LABS: CALCIUM LEVEL 7.7 MG/DL (8.3-10.6); CREATININE FOR GFR 1.87 MG/DL (0.55-1.30); GLOMERULAR FILTRATION RATE 27.1 (>32); POTASSIUM SERUM 3.8 MMOL/L (3.5-5.1)
[2024-03-19 12:00] VITALS: BP 130/60; TEMP 97.2; O2SAT 94
[2024-03-19 20:00] VITALS: BP 127/65; TEMP 97.3; O2SAT 100
[2024-03-20 04:00] VITALS: BP 131/61; TEMP 97; O2SAT 95
[2024-03-20 06:57] LABS: HEMATOCRIT 31.6 % (36.0-47.0); HEMOGLOBIN 9.7 g/dl (12.0-15.5); MEAN CORPUSCULAR HEMOGLOBIN 27.9 pg (27.0-33.0); MEAN CORPUSCULAR HGB CONC 30.7 g/dl (32.0-36.5); MEAN CORPUSCULAR VOLUME 90.8 fl (80.0-96.0); PLATELET COUNT, AUTOMATED 298 10^3/uL (150-450); RED BLOOD COUNT 3.48 10^6/uL (4.00-5.40)
[2024-03-20 07:18] LABS: CREATININE FOR GFR 1.77 MG/DL (0.55-1.30); GLOMERULAR FILTRATION RATE 28.8 (>32); POTASSIUM SERUM 3.8 MMOL/L (3.5-5.1)
[2024-03-20] MEDS ORDERED: PILL CUTTER 1 EACH XX PRN (11:55)
[2024-03-20] MEDS: LIDOCAINE 5% (LIDODERM) PATCH TD SCH (11:56)
[2024-03-20 12:00] VITALS: BP 145/67; TEMP 97.1; O2SAT 100
[2024-03-20] MEDS: ONDANSETRON 4MG TAB PO PRN (14:01)
[2024-03-20 20:00] VITALS: BP 158/60; TEMP 97.3; O2SAT 96
[2024-03-21 04:00] VITALS: BP 158/70; TEMP 97.1; O2SAT 98
[2024-03-21 07:05] LABS: HEMATOCRIT 28.7 % (36.0-47.0); HEMOGLOBIN 8.8 g/dl (12.0-15.5); MEAN CORPUSCULAR HEMOGLOBIN 27.5 pg (27.0-33.0); MEAN CORPUSCULAR HGB CONC 30.7 g/dl (32.0-36.5); MEAN CORPUSCULAR VOLUME 89.7 fl (80.0-96.0); PLATELET COUNT, AUTOMATED 204 10^3/uL (150-450); WHITE BLOOD COUNT 5.9 10^3/uL (4.0-10.0)
[2024-03-21 07:26] LABS: CALCIUM LEVEL 7.7 MG/DL (8.3-10.6); CREATININE FOR GFR 1.69 MG/DL (0.55-1.30); GLOMERULAR FILTRATION RATE 30.4 (>32); POTASSIUM SERUM 4.3 MMOL/L (3.5-5.1)
[2024-03-21] MEDS: oxyCODONE 5MG TAB PO PRN ×2 (10:01→19:46)
[2024-03-21 12:00] VITALS: BP 122/58; TEMP 97.3; O2SAT 98
[2024-03-21 20:00] VITALS: BP 122/56; TEMP 97.2; O2SAT 98
[2024-03-22 04:00] VITALS: BP 129/60; TEMP 97.2; O2SAT 99
[2024-03-22 12:00] VITALS: BP 110/68; TEMP 97.1; O2SAT 95
[2024-03-22 20:00] VITALS: BP 141/63; TEMP 97.6; O2SAT 96
[2024-03-23 04:00] VITALS: BP 140/68; TEMP 97.1; O2SAT 97
[2024-03-23] MEDS: MIRALAX *UNIT DOSE* 17GM PACKET PO PRN (08:46)
[2024-03-23 12:00] VITALS: BP 110/50; TEMP 97.6; O2SAT 97
[2024-03-23 20:00] VITALS: BP 141/68; TEMP 97.5; O2SAT 95
[2024-03-24 04:00] VITALS: BP 156/70; TEMP 97; O2SAT 100
[2024-03-24 06:59] LABS: HEMATOCRIT 28.7 % (36.0-47.0); HEMOGLOBIN 8.7 g/dl (12.0-15.5); MEAN CORPUSCULAR HEMOGLOBIN 27.8 pg (27.0-33.0); MEAN CORPUSCULAR HGB CONC 30.3 g/dl (32.0-36.5); MEAN CORPUSCULAR VOLUME 91.7 fl (80.0-96.0); PLATELET COUNT, AUTOMATED 189 10^3/uL (150-450); RED BLOOD COUNT 3.13 10^6/uL (4.00-5.40); WHITE BLOOD COUNT 6.4 10^3/uL (4.0-10.0)
[2024-03-24 07:24] LABS: CALCIUM LEVEL 7.6 MG/DL (8.3-10.6); CREATININE FOR GFR 1.48 MG/DL (0.55-1.30); GLOMERULAR FILTRATION RATE 35.4 (>32); POTASSIUM SERUM 4.9 MMOL/L (3.5-5.1)
[2024-03-24 12:00] VITALS: BP 130/60; TEMP 97.2; O2SAT 96
[2024-03-24 20:00] VITALS: BP 146/64; TEMP 97.3; O2SAT 97
[2024-03-25 04:00] VITALS: BP 152/58; TEMP 96.7; O2SAT 97
[2024-03-25 12:00] VITALS: BP 140/65; TEMP 97.4; O2SAT 96
[2024-03-25 20:00] VITALS: BP 153/66; TEMP 97.1; O2SAT 95
[2024-03-26 04:00] VITALS: BP 158/68; TEMP 97.1; O2SAT 99
[2024-03-26 12:00] VITALS: BP 128/64; TEMP 97.6; O2SAT 98
[2024-03-26] MEDS: amLODIPine 5 MG TAB PO SCH (12:31)
[2024-03-26 20:00] VITALS: BP 121/68; TEMP 97.3; O2SAT 94
[2024-03-27 04:00] VITALS: BP 127/58; TEMP 97.2; O2SAT 96
[2024-03-27 06:11] LABS: HEMATOCRIT 27.6 % (36.0-47.0); HEMOGLOBIN 8.2 g/dl (12.0-15.5); MEAN CORPUSCULAR HEMOGLOBIN 28.2 pg (27.0-33.0); MEAN CORPUSCULAR HGB CONC 29.7 g/dl (32.0-36.5); MEAN CORPUSCULAR VOLUME 94.8 fl (80.0-96.0); PLATELET COUNT, AUTOMATED 171 10^3/uL (150-450); RED BLOOD COUNT 2.91 10^6/uL (4.00-5.40); WHITE BLOOD COUNT 5.5 10^3/uL (4.0-10.0)
[2024-03-27 06:40] LABS: CALCIUM LEVEL 7.7 MG/DL (8.3-10.6); CREATININE FOR GFR 1.6 MG/DL (0.55-1.30); GLOMERULAR FILTRATION RATE 32.4 (>32); POTASSIUM SERUM 5.2 MMOL/L (3.5-5.1)
[2024-03-27 12:00] VITALS: BP 118/53; TEMP 97.5; O2SAT 97
[2024-03-27] MEDS: SOD POLYSTYRENE SULFONATE SUSP 15GM 60ML UD PO ONE (12:51)
[2024-03-27 20:00] VITALS: BP 122/75; TEMP 97.7; O2SAT 99
[2024-03-28 04:00] VITALS: BP 133/63; TEMP 97.4; O2SAT 97
[2024-03-28 06:30] LABS: CALCIUM LEVEL 7.5 MG/DL (8.3-10.6); CREATININE FOR GFR 1.54 MG/DL (0.55-1.30); GLOMERULAR FILTRATION RATE 33.8 (>32); POTASSIUM SERUM 4.9 MMOL/L (3.5-5.1)
[2024-03-28 12:00] VITALS: BP 148/65; TEMP 97.8; O2SAT 95
[2024-03-28] MEDS ORDERED: ACET-683 PO (16:00)
[2024-03-28] MEDS ORDERED: ECOT81TA5 PO (16:00)
[2024-03-28] MEDS ORDERED: AMLO1TAB24 PO (16:00)
[2024-03-28 20:00] VITALS: BP 121/74; TEMP 97.3; O2SAT 95
[2024-03-29 04:00] VITALS: BP 149/65; TEMP 97.4; O2SAT 97
[2024-03-29 07:17] LABS: CALCIUM LEVEL 7.4 MG/DL (8.3-10.6); CREATININE FOR GFR 1.42 MG/DL (0.55-1.30); GLOMERULAR FILTRATION RATE 37.2 (>32); POTASSIUM SERUM 4.8 MMOL/L (3.5-5.1)
[2024-03-29 12:00] VITALS: BP 121/68; TEMP 97.5; O2SAT 98
[2024-03-29 20:00] VITALS: BP 137/62; TEMP 98.3; O2SAT 95
[2024-03-30 04:00] VITALS: BP 134/62; TEMP 97.4; O2SAT 95
[2024-03-30 12:00] VITALS: BP 146/70; TEMP 98; O2SAT 96
[2024-03-30 20:00] VITALS: BP 120/52; TEMP 97.9; O2SAT 95
[2024-03-31 04:00] VITALS: BP 149/81; TEMP 97; O2SAT 97
[2024-03-31 08:39] VITALS: BP 132/61
== END 2024-03-31 11:07 | disposition home health service (06) | DRG 560 ==
LOC: M PM&R 15:20
PROVIDERS: ADMIT Student in an Organized Health Care Education/Training Program; ATTEND Student in an Organized Health Care Education/Training Program
DX: S72.141D Displaced intertrochanteric fracture of right femur, subsequent encounter for closed fracture with routine healing (principal); N17.9 Acute kidney failure, unspecified; I12.9 Hypertensive chronic kidney disease with stage 1 through stage 4 chronic kidney disease, or unspecified chronic kidney disease; M06.9 Rheumatoid arthritis, unspecified; R26.89 Other abnormalities of gait and mobility; Z74.1 Need for assistance with personal care; Z74.09 Other reduced mobility; T84.7XXD Infection and inflammatory reaction due to other internal orthopedic prosthetic devices, implants and grafts, subsequent encounter; K59.00 Constipation, unspecified; M19.90 Unspecified osteoarthritis, unspecified site; E53.8 Deficiency of other specified B group vitamins; N18.9 Chronic kidney disease, unspecified; D64.9 Anemia, unspecified; M81.0 Age-related osteoporosis without current pathological fracture; L40.9 Psoriasis, unspecified; Z79.899 Other long term (current) drug therapy; Z88.0 Allergy status to penicillin; Z91.048 Other nonmedicinal substance allergy status; Z86.73 Personal history of transient ischemic attack (TIA), and cerebral infarction without residual deficits; Z85.828 Personal history of other malignant neoplasm of skin; Z87.891 Personal history of nicotine dependence

== ENCOUNTER 2024-04-04 12:53 | Inpatient (IN) | payer MEDICARE, OTHER ==
[~2024-04-04] VITALS: Ht 167.6 cm; Wt 78.4 kg
[~2024-04-04 12:53] MED LIST changes: -ACET1TAB55 PO; -ASCO50TA PO; -CEFD300CAP PO; -FAMO20TA PO; -FERR1TAB8 PO; -GUAI20TA PO; -VITAD1000T PO
[2024-04-04 14:55] VITALS: BP 160/64; TEMP 97.3; O2SAT 97
[2024-04-04 15:28] LABS: HEMATOCRIT 33.7 % (36.0-47.0); HEMOGLOBIN 10.2 g/dl (12.0-15.5); MEAN CORPUSCULAR HEMOGLOBIN 29.7 pg (27.0-33.0); MEAN CORPUSCULAR HGB CONC 30.3 g/dl (32.0-36.5); PLATELET COUNT, AUTOMATED 210 10^3/uL (150-450); RED BLOOD COUNT 3.44 10^6/uL (4.00-5.40); WHITE BLOOD COUNT 4.9 10^3/uL (4.0-10.0)
[2024-04-04 15:50] LABS: ALBUMIN 2.6 G/DL (3.2-5.2); BILIRUBIN,TOTAL 0.8 MG/DL (0.3-1.2); CALCIUM LEVEL 8.4 MG/DL (8.3-10.6); CREATININE FOR GFR 1.49 MG/DL (0.55-1.30); GLOMERULAR FILTRATION RATE 35.2 (>32); POTASSIUM SERUM 4.4 MMOL/L (3.5-5.1); TOTAL PROTEIN 6.2 G/DL (5.7-8.2)
[2024-04-04 15:57] LABS: PROCALCITONIN 0.42 ng/ml
[2024-04-04] MEDS ORDERED: AMLO1TAB24 PO (16:07)
[2024-04-04] MEDS ORDERED: ASPI81TA26 PO (16:07)
[2024-04-04] MEDS ORDERED: HOME MED LIST COMPLETE! XX SCH (16:10)
[2024-04-04 21:00] VITALS: BP 129/67; TEMP 97.7; O2SAT 94
[2024-04-04] MEDS: HEPARIN SOD (PORCINE) 5000UNITS/ML 1ML VIAL/SYRINGE SQ SCH (21:02)
[2024-04-04] MEDS: SIMVASTATIN 20 MG TAB PO SCH (21:02)
[2024-04-04] MEDS: amLODIPine 5 MG TAB PO SCH (21:03)
[2024-04-05 06:27] LABS: HEMATOCRIT 29.3 % (36.0-47.0); HEMOGLOBIN 8.8 g/dl (12.0-15.5); MEAN CORPUSCULAR HEMOGLOBIN 29.3 pg (27.0-33.0); MEAN CORPUSCULAR VOLUME 97.7 fl (80.0-96.0); PLATELET COUNT, AUTOMATED 173 10^3/uL (150-450); WHITE BLOOD COUNT 2.8 10^3/uL (4.0-10.0)
[2024-04-05 06:40] VITALS: BP_SYST 135; BP_SYST 98; BP_DIAS 57; BP_DIAS 91; TEMP 97.7; O2SAT 96; O2SAT 98
[2024-04-05 06:52] LABS: CREATININE FOR GFR 1.38 MG/DL (0.55-1.30); GLOMERULAR FILTRATION RATE 38.4 (>32); POTASSIUM SERUM 4.4 MMOL/L (3.5-5.1)
[2024-04-05] MEDS: FOLIC ACID 1MG TAB PO SCH (08:25)
[2024-04-05] MEDS: FUROSEMIDE 10MG PER 1/2 TABLET PO SCH (08:25)
[2024-04-05] MEDS: ASPIRIN 81MG ENTERIC TABLET PO SCH (08:26)
[2024-04-05] MEDS ORDERED: ENOXAPARIN 40MG/0.4ML SYRINGE (J1650 PER 10MG) SC SCH (09:00)
[2024-04-05 12:00] VITALS: BP 106/61; TEMP 97.5; O2SAT 98
[2024-04-05 19:53] VITALS: BP 113/61; TEMP 97.5; O2SAT 95
[2024-04-06 04:00] VITALS: BP 112/69; TEMP 97.3; O2SAT 95
[2024-04-06] MEDS: ACETAMINOPHEN TAB 650MG DOSE (2X325MG) PO PRN (05:26)
[2024-04-06 07:21] LABS: BASO % 0.7 % (0.0-1.0); HEMATOCRIT 30.9 % (36.0-47.0); HEMOGLOBIN 9.3 g/dl (12.0-15.5); LYMPH # 0.8 10^3/uL (1.5-5.0); LYMPH % 30.6 % (24.0-44.0); MEAN CORPUSCULAR HEMOGLOBIN 29.3 pg (27.0-33.0); MEAN CORPUSCULAR HGB CONC 30.1 g/dl (32.0-36.5); MEAN CORPUSCULAR VOLUME 97.5 fl (80.0-96.0); MONO # 0.2 10^3/uL (0.0-0.8); MONO % 8.2 % (2.0-8.0); NEUTROPHILS # 1.6 10^3/uL (1.5-8.5); NEUTROPHILS % 60.1 % (36.0-66.0); PLATELET COUNT, AUTOMATED 167 10^3/uL (150-450); RED BLOOD COUNT 3.17 10^6/uL (4.00-5.40); WHITE BLOOD COUNT 2.7 10^3/uL (4.0-10.0)
[2024-04-06 07:43] LABS: CALCIUM LEVEL 8.1 MG/DL (8.3-10.6); CREATININE FOR GFR 1.37 MG/DL (0.55-1.30); GLOMERULAR FILTRATION RATE 38.7 (>32); POTASSIUM SERUM 4.6 MMOL/L (3.5-5.1)
[2024-04-06 12:00] VITALS: BP 113/70; TEMP 97.6; O2SAT 96
[2024-04-06 20:27] VITALS: BP 159/60; TEMP 97.5; O2SAT 95
[2024-04-07 04:00] VITALS: BP 156/64; TEMP 97; O2SAT 95
[2024-04-07 07:15] LABS: HEMATOCRIT 29.9 % (36.0-47.0); HEMOGLOBIN 9.1 g/dl (12.0-15.5); MEAN CORPUSCULAR HEMOGLOBIN 29.8 pg (27.0-33.0); MEAN CORPUSCULAR HGB CONC 30.4 g/dl (32.0-36.5); PLATELET COUNT, AUTOMATED 159 10^3/uL (150-450); RED BLOOD COUNT 3.05 10^6/uL (4.00-5.40); WHITE BLOOD COUNT 2.3 10^3/uL (4.0-10.0)
[2024-04-07 12:15] VITALS: BP 145/68; TEMP 97.2; O2SAT 94
[2024-04-07 20:14] VITALS: BP 147/67; TEMP 97.2; O2SAT 95
[2024-04-08 04:27] VITALS: BP 147/66; TEMP 97.3; O2SAT 94
[2024-04-08 06:37] LABS: BASO % 0.5 % (0.0-1.0); HEMATOCRIT 34.6 % (36.0-47.0); HEMOGLOBIN 10.2 g/dl (12.0-15.5); LYMPH % 48.9 % (24.0-44.0); MEAN CORPUSCULAR HEMOGLOBIN 29.1 pg (27.0-33.0); MEAN CORPUSCULAR HGB CONC 29.5 g/dl (32.0-36.5); MEAN CORPUSCULAR VOLUME 98.6 fl (80.0-96.0); MONO # 0.4 10^3/uL (0.0-0.8); MONO % 9.2 % (2.0-8.0); NEUTROPHILS # 1.7 10^3/uL (1.5-8.5); NEUTROPHILS % 41.2 % (36.0-66.0); PLATELET COUNT, AUTOMATED 200 10^3/uL (150-450); RED BLOOD COUNT 3.51 10^6/uL (4.00-5.40)
[2024-04-08 06:48] LABS: CALCIUM LEVEL 8.2 MG/DL (8.3-10.6); CREATININE FOR GFR 1.34 MG/DL (0.55-1.30); GLOMERULAR FILTRATION RATE 39.7 (>32); POTASSIUM SERUM 4.6 MMOL/L (3.5-5.1)
[2024-04-08 12:00] VITALS: BP 146/83; TEMP 97.2; O2SAT 97
[2024-04-08 17:36] LABS: CREATININE FOR GFR 1.36 MG/DL (0.55-1.30); GLOMERULAR FILTRATION RATE 39.1 (>32); POTASSIUM SERUM 4.2 MMOL/L (3.5-5.1)
[2024-04-08 20:06] VITALS: BP 91/55; TEMP 97.5; O2SAT 96
[2024-04-08 20:15] VITALS: BP 150/54
[2024-04-09] VITALS (11 sets, daily range): BP systolic 100–173; BP diastolic 44–94; TEMP 96.8–97.7; O2SAT 90–99
[2024-04-09] MEDS ORDERED: SUGAMMADEX SODIUM 500 MG/5 ML VIAL (BRIDION) As Ordered ONE (07:51)
[2024-04-09] MEDS ORDERED: MIDAZOLAM INJ 2MG/2ML VIAL As Ordered ONE (07:51)
[2024-04-09] MEDS ORDERED: LIDOCAINE 2% 100MG/5ML SDV (FOR ANES.) As Ordered ONE (07:51)
[2024-04-09] MEDS ORDERED: fentaNYL 100 MCG/2 ML INJECTION As Ordered ONE (07:51)
[2024-04-09] MEDS ORDERED: ROCURONIUM BROMIDE 50MG/5ML VIAL As Ordered ONE (07:51)
[2024-04-09] MEDS ORDERED: propofoL 200 MG/20 ML VIAL As Ordered ONE (07:51)
[2024-04-09] MEDS ORDERED: HYDROmorphone HCL 2MG/ML 1ML VIAL As Ordered ONE (07:51)
[2024-04-09] MEDS: TRANEXAMIC ACID 100 MG/ML 10ML VIAL As Ordered ONE (07:54)
[2024-04-09] MEDS: VANCOMYCIN 500MG/10ML VIAL As Ordered ONE (07:56)
[2024-04-09] MEDS ORDERED: ACETAMINOPHEN 1000MG 100ML IV BAG As Ordered ONE (07:59)
[2024-04-09] MEDS: ceFAZolin 2 GM/D5W 50 ML IV BAG As Ordered ONE (08:36)
[2024-04-09] MEDS ORDERED: PHENYLephrine 500MCG 5ML (100MCG/ML) SYRINGE As Ordered ONE (08:59)
[2024-04-09] MEDS ORDERED: ePHEDrine SULFATE 25 MG/5 ML(5MG/ML) SYRINGE As Ordered ONE (09:54)
[2024-04-09] MEDS ORDERED: PHENYLEPHRINE 10MG/ML 1ML VIAL As Ordered ONE (10:56)
[2024-04-09] MEDS: LR 1,000 ML IV SCH (12:25)
[2024-04-09] MEDS ORDERED: fentaNYL 100 MCG/2 ML INJECTION IV PRN (12:25)
[2024-04-09] MEDS ORDERED: HYDROMORPHONE HCL 0.5 MG/ 0.5 ML SYRINGE IV PRN (12:25)
[2024-04-09] MEDS ORDERED: ONDANSETRON 4MG 2ML VIAL IV PRN (12:25)
[2024-04-09] MEDS ORDERED: oxyCODONE 5MG TAB PO PRN ×2 (12:25→14:40)
[2024-04-09] MEDS: PHENYLEPHRINE HCL INJ 10 MG in D5W 99 ML IV SCH (12:30)
[2024-04-09] MEDS ORDERED: PHENYLephrine 500MCG 5ML (100MCG/ML) SYRINGE IV PRN (12:30)
[2024-04-09 13:22] LABS: HEMATOCRIT 29.9 % (36.0-47.0); HEMOGLOBIN 8.9 g/dl (12.0-15.5)
[2024-04-09] MEDS: amLODIPine 5 MG TAB PO SCH (15:11)
[2024-04-09] MEDS: ceFAZolin SOD 2 GM in IV 1 EA IV SCH (18:10)
[2024-04-10] VITALS (9 sets, daily range): BP systolic 98–120; BP diastolic 35–68; TEMP 97.3–97.9; O2SAT 90–99
[2024-04-10] MEDS: oxyCODONE 5MG TAB PO PRN (06:19)
[2024-04-10 07:42] LABS: HEMATOCRIT 21.4 % (36.0-47.0); MEAN CORPUSCULAR HEMOGLOBIN 29.7 pg (27.0-33.0); MEAN CORPUSCULAR HGB CONC 30.4 g/dl (32.0-36.5); MEAN CORPUSCULAR VOLUME 97.7 fl (80.0-96.0); PLATELET COUNT, AUTOMATED 162 10^3/uL (150-450); RED BLOOD COUNT 2.19 10^6/uL (4.00-5.40); WHITE BLOOD COUNT 4.3 10^3/uL (4.0-10.0)
[2024-04-10 08:07] LABS: HEMOGLOBIN 6.5 g/dl (12.0-15.5)
[2024-04-10 11:57] LABS: HEMATOCRIT 22.2 % (36.0-47.0)
[2024-04-10 12:08] LABS: HEMOGLOBIN 6.5 g/dl (12.0-15.5)
[2024-04-10 15:32] LABS: HEMATOCRIT 26.3 % (36.0-47.0); HEMOGLOBIN 7.9 g/dl (12.0-15.5)
[2024-04-10] MEDS: CEFDINIR 300 MG CAP (OMNICEF) PO SCH (17:22)
[2024-04-11] VITALS (7 sets, daily range): BP systolic 121–141; BP diastolic 44–48; TEMP 97.3–97.9; O2SAT 89–95
[2024-04-11 06:37] LABS: BASO % 0.3 % (0.0-1.0); HEMATOCRIT 22.3 % (36.0-47.0); LYMPH # 0.9 10^3/uL (1.5-5.0); LYMPH % 24.1 % (24.0-44.0); MEAN CORPUSCULAR HEMOGLOBIN 29.8 pg (27.0-33.0); MEAN CORPUSCULAR HGB CONC 30.5 g/dl (32.0-36.5); MEAN CORPUSCULAR VOLUME 97.8 fl (80.0-96.0); MONO # 0.6 10^3/uL (0.0-0.8); MONO % 14.6 % (2.0-8.0); NEUTROPHILS # 2.3 10^3/uL (1.5-8.5); NEUTROPHILS % 60.5 % (36.0-66.0); PLATELET COUNT, AUTOMATED 142 10^3/uL (150-450); RED BLOOD COUNT 2.28 10^6/uL (4.00-5.40); WHITE BLOOD COUNT 3.8 10^3/uL (4.0-10.0)
[2024-04-11 06:40] LABS: HEMOGLOBIN 6.8 g/dl (12.0-15.5)
[2024-04-11 07:07] LABS: CALCIUM LEVEL 7.1 MG/DL (8.3-10.6); CREATININE FOR GFR 1.64 MG/DL (0.55-1.30); GLOMERULAR FILTRATION RATE 31.5 (>32); POTASSIUM SERUM 4.7 MMOL/L (3.5-5.1)
[2024-04-11] MEDS: FERROUS SULFATE 325MG TAB PO SCH (13:25)
[2024-04-11] MEDS: ASCORBIC ACID 500 MG TAB PO SCH (13:25)
[2024-04-11] MEDS: VITAMIN D 1,000 INTERNATIONAL UNITS TABLET PO SCH (13:25)
[2024-04-11 14:07] LABS: HEMATOCRIT 27.9 % (36.0-47.0); HEMOGLOBIN 8.9 g/dl (12.0-15.5)
[2024-04-11 20:59] LABS: HEMOGLOBIN 8.6 g/dl (12.0-15.5)
[2024-04-12 02:11] LABS: HEMATOCRIT 27.2 % (36.0-47.0); HEMOGLOBIN 8.6 g/dl (12.0-15.5)
[2024-04-12 04:13] VITALS: BP 136/52; TEMP 97; O2SAT 95
[2024-04-12 06:34] LABS: BASO % 0.3 % (0.0-1.0); HEMATOCRIT 29.5 % (36.0-47.0); HEMOGLOBIN 9.2 g/dl (12.0-15.5); LYMPH # 0.8 10^3/uL (1.5-5.0); LYMPH % 22.2 % (24.0-44.0); MEAN CORPUSCULAR HEMOGLOBIN 29.7 pg (27.0-33.0); MEAN CORPUSCULAR HGB CONC 31.2 g/dl (32.0-36.5); MEAN CORPUSCULAR VOLUME 95.2 fl (80.0-96.0); MONO # 0.4 10^3/uL (0.0-0.8); MONO % 12.2 % (2.0-8.0); NEUTROPHILS # 2.3 10^3/uL (1.5-8.5); NEUTROPHILS % 64.7 % (36.0-66.0); PLATELET COUNT, AUTOMATED 170 10^3/uL (150-450); WHITE BLOOD COUNT 3.6 10^3/uL (4.0-10.0)
[2024-04-12 07:00] LABS: CALCIUM LEVEL 7.9 MG/DL (8.3-10.6); CREATININE FOR GFR 1.47 MG/DL (0.55-1.30); GLOMERULAR FILTRATION RATE 35.7 (>32); POTASSIUM SERUM 4.3 MMOL/L (3.5-5.1)
[2024-04-12 12:17] VITALS: BP 130/53; TEMP 97.2; O2SAT 96
[2024-04-12 13:58] LABS: HEMATOCRIT 31.8 % (36.0-47.0); HEMOGLOBIN 10.1 g/dl (12.0-15.5)
[2024-04-12 19:40] VITALS: BP 118/50; TEMP 97.9; O2SAT 95
[2024-04-13 04:00] VITALS: BP 129/49; TEMP 97.3; O2SAT 96
[2024-04-13 06:05] LABS: HEMATOCRIT 27.4 % (36.0-47.0); HEMOGLOBIN 8.5 g/dl (12.0-15.5); MEAN CORPUSCULAR HEMOGLOBIN 29.8 pg (27.0-33.0); MEAN CORPUSCULAR VOLUME 96.1 fl (80.0-96.0); PLATELET COUNT, AUTOMATED 176 10^3/uL (150-450); RED BLOOD COUNT 2.85 10^6/uL (4.00-5.40); WHITE BLOOD COUNT 3.8 10^3/uL (4.0-10.0)
[2024-04-13 08:42] LABS: PERCENT SATURATION 8.8 % (13.2-45.0)
[2024-04-13 08:45] LABS: FERRITIN 117.7 NG/ML (7.3-270.7)
[2024-04-13 12:00] VITALS: BP 145/65; TEMP 97.5; O2SAT 97
[2024-04-13 13:23] LABS: CREATININE FOR GFR 1.32 MG/DL (0.55-1.30); GLOMERULAR FILTRATION RATE 40.4 (>32)
[2024-04-13 20:17] VITALS: BP 144/64; TEMP 97.5; O2SAT 98
[2024-04-14 04:45] VITALS: BP 148/67; TEMP 97.4; O2SAT 98
[2024-04-14 08:48] LABS: CALCIUM LEVEL 8.1 MG/DL (8.3-10.6); CREATININE FOR GFR 1.29 MG/DL (0.55-1.30); GLOMERULAR FILTRATION RATE 41.5 (>32); POTASSIUM SERUM 4.3 MMOL/L (3.5-5.1)
[2024-04-14 09:32] VITALS: BP 128/57
[2024-04-14] MEDS ORDERED: ASCO50TA PO (11:16)
[2024-04-14] MEDS ORDERED: CEFD300CAP PO (11:16)
[2024-04-14] MEDS ORDERED: FERR1TAB8 PO (11:16)
[2024-04-14] MEDS ORDERED: VITAD1000T PO (11:16)
[2024-04-14 12:00] VITALS: BP 130/89; TEMP 97.7; O2SAT 94
[2024-04-14] MEDS: IRON SUCROSE 300 MG in NS 250 ML IV SCH (12:44)
== END 2024-04-14 15:30 | DRG 470 ==
LOC: M MS5PR 13:51
PROVIDERS: ADMIT General Practice; ATTEND Hospitalist
PROC: 0SR90JA Replacement of Right Hip Joint with Synthetic Substitute, Uncemented, Open Approach (ICD-10-PCS; principal; 2024-04-09 08:30)
PROC: 0QP604Z Removal of Internal Fixation Device from Right Upper Femur, Open Approach (ICD-10-PCS; 2024-04-09 08:30)
PROC: 30233N1 Transfusion of Nonautologous Red Blood Cells into Peripheral Vein, Percutaneous Approach (ICD-10-PCS; 2024-04-10)
DX: T84.124A Displacement of internal fixation device of right femur, initial encounter (principal); S72.141P Displaced intertrochanteric fracture of right femur, subsequent encounter for closed fracture with malunion; D62 Acute posthemorrhagic anemia; M06.9 Rheumatoid arthritis, unspecified; L40.9 Psoriasis, unspecified; N18.9 Chronic kidney disease, unspecified; I12.9 Hypertensive chronic kidney disease with stage 1 through stage 4 chronic kidney disease, or unspecified chronic kidney disease; M85.851 Other specified disorders of bone density and structure, right thigh; D75.89 Other specified diseases of blood and blood-forming organs; Z86.73 Personal history of transient ischemic attack (TIA), and cerebral infarction without residual deficits; Z85.828 Personal history of other malignant neoplasm of skin; Z79.82 Long term (current) use of aspirin; Z79.899 Other long term (current) drug therapy; Z88.0 Allergy status to penicillin

== ENCOUNTER → 2024-04-04 | Outpatient (CLI) | payer MEDICARE, OTHER ==
[~2024-04-04] MED LIST changes: +ACET1TAB55 PO; +AMLO1TAB24 PO; +ASCO50TA PO; +CEFD300CAP PO; +CEPH500C PO; +FAMO20TA PO; +FERR1TAB8 PO; +GUAI20TA PO; +VITAD1000T PO
== END ==
LOC: M SOG 08:10
PROVIDERS: ATTEND Orthopaedic Surgery
DX: S72.141A Displaced intertrochanteric fracture of right femur, initial encounter for closed fracture (principal); X58.XXXA Exposure to other specified factors, initial encounter; Y92.9 Unspecified place or not applicable; Y93.9 Activity, unspecified; Y99.9 Unspecified external cause status

== ENCOUNTER 2024-04-14 14:01 | Inpatient (IN) | payer MEDICARE, OTHER ==
[~2024-04-14] VITALS: Ht 167.6 cm; Wt 74.7 kg
[~2024-04-14 14:01] MED LIST changes: +ASCO50TA PO; +CEFD300CAP PO; +FERR1TAB8 PO; +VITAD1000T PO
[2024-04-14] MEDS ORDERED: MAALOX 30 ML SUSP *UDC PO PRN (15:35)
[2024-04-14] MEDS ORDERED: SIMETHICONE 80MG CHEW TAB PO PRN (15:35)
[2024-04-14] MEDS ORDERED: MOM 30ML SUSPENSION UDC PO PRN (15:35)
[2024-04-14] MEDS ORDERED: BISACODYL 10MG SUPP PR PRN (15:35)
[2024-04-14 15:40] VITALS: BP 147/60; TEMP 98.4; O2SAT 87
[2024-04-14] MEDS ORDERED: oxyCODONE 5MG TAB PO PRN ×2 (15:50)
[2024-04-14] MEDS: CEFDINIR 300 MG CAP (OMNICEF) PO SCH (17:51)
[2024-04-14 20:00] VITALS: BP 130/90; TEMP 98.5; O2SAT 91
[2024-04-14] MEDS: amLODIPine 5 MG TAB PO SCH (20:50)
[2024-04-14] MEDS: SIMVASTATIN 20 MG TAB PO SCH (20:50)
[2024-04-14 22:26] VITALS: BP 130/90; TEMP 98.5; O2SAT 91
[2024-04-14 22:33] VITALS: BP 130/90; TEMP 98.5; O2SAT 91
[2024-04-15 04:00] VITALS: BP 137/60; TEMP 97.6; O2SAT 97
[2024-04-15 06:17] VITALS: BP 137/60; TEMP 97.6; O2SAT 97
[2024-04-15 06:24] LABS: BASO % 0.9 % (0.0-1.0); HEMATOCRIT 29.4 % (36.0-47.0); LYMPH # 1.1 10^3/uL (1.5-5.0); LYMPH % 30.1 % (24.0-44.0); MEAN CORPUSCULAR HEMOGLOBIN 29.7 pg (27.0-33.0); MEAN CORPUSCULAR HGB CONC 30.6 g/dl (32.0-36.5); MONO # 0.5 10^3/uL (0.0-0.8); MONO % 15.1 % (2.0-8.0); NEUTROPHILS # 1.9 10^3/uL (1.5-8.5); PLATELET COUNT, AUTOMATED 218 10^3/uL (150-450); RED BLOOD COUNT 3.03 10^6/uL (4.00-5.40); WHITE BLOOD COUNT 3.5 10^3/uL (4.0-10.0)
[2024-04-15 06:47] LABS: CALCIUM LEVEL 7.7 MG/DL (8.3-10.6); CREATININE FOR GFR 1.42 MG/DL (0.55-1.30); GLOMERULAR FILTRATION RATE 37.2 (>32); POTASSIUM SERUM 4.1 MMOL/L (3.5-5.1)
[2024-04-15] MEDS: FOLIC ACID 1MG TAB PO SCH (07:23)
[2024-04-15] MEDS: ASCORBIC ACID 500 MG TAB PO SCH (07:23)
[2024-04-15] MEDS: ASPIRIN 81MG ENTERIC TABLET PO SCH (07:23)
[2024-04-15] MEDS: VITAMIN D 1,000 INTERNATIONAL UNITS TABLET PO SCH (07:24)
[2024-04-15] MEDS: FUROSEMIDE 10MG PER 1/2 TABLET PO SCH (10:17)
[2024-04-15 12:00] VITALS: BP 116/56; TEMP 98.2; O2SAT 95
[2024-04-15] MEDS: IRON SUCROSE 300 MG in NS 250 ML IV SCH (16:37)
[2024-04-15] MEDS: ACETAMINOPHEN TAB 650MG DOSE (2X325MG) PO PRN (16:47)
[2024-04-15 20:00] VITALS: BP 140/58; TEMP 98.5; O2SAT 92
[2024-04-15] MEDS: guaiFENesin ER TABLET 600 MG TAB PO SCH (20:45)
[2024-04-15 23:59] VITALS: BP 140/58; TEMP 98.5
[2024-04-16 04:00] VITALS: BP 131/58; TEMP 98.2; O2SAT 93
[2024-04-16] MEDS: FERROUS SULFATE 325MG TAB PO SCH (07:36)
[2024-04-16] MEDS ORDERED: **hydrALAZINE HCL** 25 MG TAB PO PRN (14:20)
[2024-04-16] MEDS: MIRALAX *UNIT DOSE* 17GM PACKET PO PRN (16:26)
[2024-04-16] MEDS: guaiFENesin SYRUP 200MG 10ML UDC PO ONE (17:04)
[2024-04-16] MEDS: FUROSEMIDE 20 MG TAB PO ONE (17:04)
[2024-04-16 20:00] VITALS: BP 142/63; TEMP 99.3; O2SAT 95
[2024-04-16] MEDS: guaiFENesin ER TABLET 600 MG TAB PO SCH (20:11)
[2024-04-16] MEDS: DOCUSATE SODIUM 100MG CAPSULE PO SCH (20:11)
[2024-04-17] MEDS ORDERED: PERMETHRIN 5% CREAM 60 GM TOP SCH
[2024-04-17 04:00] VITALS: BP 132/57; TEMP 98.6; O2SAT 90
[2024-04-17 06:20] LABS: BASO % 0.4 % (0.0-1.0); HEMATOCRIT 29.9 % (36.0-47.0); HEMOGLOBIN 9.2 g/dl (12.0-15.5); LYMPH # 1.3 10^3/uL (1.5-5.0); LYMPH % 29.1 % (24.0-44.0); MEAN CORPUSCULAR HEMOGLOBIN 30.1 pg (27.0-33.0); MEAN CORPUSCULAR HGB CONC 30.8 g/dl (32.0-36.5); MEAN CORPUSCULAR VOLUME 97.7 fl (80.0-96.0); MONO # 0.5 10^3/uL (0.0-0.8); MONO % 10.2 % (2.0-8.0); NEUTROPHILS # 2.7 10^3/uL (1.5-8.5); PLATELET COUNT, AUTOMATED 232 10^3/uL (150-450); RED BLOOD COUNT 3.06 10^6/uL (4.00-5.40); WHITE BLOOD COUNT 4.5 10^3/uL (4.0-10.0)
[2024-04-17 06:43] LABS: CALCIUM LEVEL 8.1 MG/DL (8.3-10.6); CREATININE FOR GFR 1.47 MG/DL (0.55-1.30); GLOMERULAR FILTRATION RATE 35.7 (>32); POTASSIUM SERUM 4.8 MMOL/L (3.5-5.1)
[2024-04-17] MEDS: BISACODYL 5MG TAB PO PRN (07:32)
[2024-04-17] MEDS: BISACODYL 5MG TAB PO ONE (09:05)
[2024-04-17 11:42] VITALS: BP 108/51; TEMP 98.4; O2SAT 92
[2024-04-17] MEDS ORDERED: FAMOTIDINE 20 MG TAB PO ONE (13:40)
[2024-04-17] MEDS: FAMOTIDINE 20 MG TAB PO ONE (14:19)
[2024-04-17 20:00] VITALS: BP 138/63; TEMP 98.2; O2SAT 93
[2024-04-17] MEDS: PERMETHRIN 5% CREAM 60 GM TOP ONE (21:30)
[2024-04-17] MEDS: FAMOTIDINE 20 MG TAB PO SCH (21:32)
[2024-04-18 04:00] VITALS: BP 130/60; TEMP 99.2; O2SAT 95
[2024-04-18] MEDS ORDERED: MICONAZOLE 2 % POWDER (DESENEX) TOP ONE (10:20)
[2024-04-18 11:40] VITALS: BP 108/62; TEMP 98.8; O2SAT 96
[2024-04-18] MEDS: ONDANSETRON 4MG TAB PO PRN (13:04)
[2024-04-18] MEDS: MICONAZOLE 2 % POWDER (DESENEX) TOP SCH (13:05)
[2024-04-18 20:00] VITALS: BP 123/57; TEMP 98.1; O2SAT 92
[2024-04-18] MEDS: guaiFENesin 200 MG TAB PO PRN (21:54)
[2024-04-19 04:00] VITALS: BP 119/57; TEMP 98; O2SAT 94
[2024-04-19 12:00] VITALS: BP 119/59; TEMP 98.6; O2SAT 91
[2024-04-19 20:00] VITALS: BP 117/56; TEMP 98.5; O2SAT 93
[2024-04-20 04:00] VITALS: BP 116/58; TEMP 98.1; O2SAT 93
[2024-04-20 12:00] VITALS: BP 115/57; TEMP 98.1; O2SAT 97
[2024-04-20 19:30] VITALS: BP 134/61; TEMP 98.8; O2SAT 93
[2024-04-21 04:02] VITALS: BP 143/63; TEMP 98.3; O2SAT 96
[2024-04-21] MEDS ORDERED: LOPERAMIDE 2 MG CAPLET PO PRN (08:45)
[2024-04-21 12:00] VITALS: BP 141/64; TEMP 98.1; O2SAT 95
[2024-04-21 20:49] VITALS: BP 121/58; TEMP 98.1; O2SAT 95
[2024-04-22 04:00] VITALS: BP 133/56; TEMP 98; O2SAT 96
[2024-04-22 12:00] VITALS: BP 132/63; TEMP 97.6; O2SAT 97
[2024-04-22] MEDS ORDERED: GUAI20TA PO (14:18)
[2024-04-22] MEDS ORDERED: FERR1TAB8 PO (14:18)
[2024-04-22] MEDS ORDERED: ACET1TAB55 PO (14:18)
[2024-04-22] MEDS ORDERED: FAMO20TA PO (14:18)
[2024-04-22] MEDS ORDERED: AMLO1TAB24 PO (14:18)
[2024-04-22 19:52] VITALS: BP 126/58; TEMP 98.1; O2SAT 96
[2024-04-23 04:44] VITALS: BP 139/66; TEMP 97.7; O2SAT 92
[2024-04-23 09:22] VITALS: BP 114/56
[2024-04-23] MEDS ORDERED: PERMETHRIN 5% CREAM 60 GM TOP ONE (17:00)
== END 2024-04-23 12:25 | disposition home health service (06) | DRG 950 ==
LOC: M PM&R 15:30
PROVIDERS: ADMIT Physical Medicine & Rehabilitation; ATTEND Physical Medicine & Rehabilitation
DX: T84.12 Displacement of internal fixation device of bones of limb (principal); Z11.52 Encounter for screening for COVID-19; M06.9 Rheumatoid arthritis, unspecified; L40.9 Psoriasis, unspecified; Z74.1 Need for assistance with personal care; I12.9 Hypertensive chronic kidney disease with stage 1 through stage 4 chronic kidney disease, or unspecified chronic kidney disease; Z74.09 Other reduced mobility; R26.89 Other abnormalities of gait and mobility; K44.9 Diaphragmatic hernia without obstruction or gangrene; S91.001D Unspecified open wound, right ankle, subsequent encounter; Z96.641 Presence of right artificial hip joint; R19.7 Diarrhea, unspecified; B37.9 Candidiasis, unspecified; I80.8 Phlebitis and thrombophlebitis of other sites; D64.9 Anemia, unspecified; R05.9 Cough, unspecified; N18.30 Chronic kidney disease, stage 3 unspecified; M81.0 Age-related osteoporosis without current pathological fracture; Z79.82 Long term (current) use of aspirin; Z79.899 Other long term (current) drug therapy; Z88.0 Allergy status to penicillin; Z86.73 Personal history of transient ischemic attack (TIA), and cerebral infarction without residual deficits; Z91.048 Other nonmedicinal substance allergy status; Z85.828 Personal history of other malignant neoplasm of skin; Z87.891 Personal history of nicotine dependence

== ENCOUNTER → 2024-04-30 | Outpatient (CLI) | payer MEDICARE, OTHER ==
[~2024-04-30] MED LIST changes: +ACET1TAB55 PO; +FAMO20TA PO; +GUAI20TA PO
== END ==
LOC: M RAD 04-29 16:18
PROVIDERS: ATTEND Nurse Practitioner Family
DX: I87.2 Venous insufficiency (chronic) (peripheral) (principal); R60.0 Localized edema

== ENCOUNTER → 2024-05-07 | Outpatient (CLI) | payer MEDICARE, OTHER | LOC: M SOG 07:26 | PROVIDERS: ATTEND Orthopaedic Surgery | DX: Z47.1 Aftercare following joint replacement surgery (principal); M25.571 Pain in right ankle and joints of right foot; Z96.641 Presence of right artificial hip joint; M19.071 Primary osteoarthritis, right ankle and foot ==

== ENCOUNTER → 2024-05-12 | Outpatient (CLI) | payer MEDICARE, OTHER | LOC: M RAD 15:13 | PROVIDERS: ATTEND Orthopaedic Surgery | DX: M25.571 Pain in right ankle and joints of right foot (principal) ==

== ENCOUNTER → 2024-05-28 | Outpatient (REF) | payer MEDICARE, OTHER ==
[~2024-05-28] MED LIST changes: +ACET-910 PO; +C 50TAB PO; +VITA100093 PO
[2024-05-28 15:42] LABS: BASO % 0.2 % (0.0-1.0); HEMOGLOBIN 11.9 g/dl (12.0-15.5); LYMPH # 1.5 10^3/uL (1.5-5.0); LYMPH % 26.3 % (24.0-44.0); MEAN CORPUSCULAR HEMOGLOBIN 29.2 pg (27.0-33.0); MEAN CORPUSCULAR HGB CONC 31.3 g/dl (32.0-36.5); MEAN CORPUSCULAR VOLUME 93.4 fl (80.0-96.0); MONO # 0.2 10^3/uL (0.0-0.8); MONO % 3.9 % (2.0-8.0); NEUTROPHILS % 69.4 % (36.0-66.0); PLATELET COUNT, AUTOMATED 286 10^3/uL (150-450); RED BLOOD COUNT 4.07 10^6/uL (4.00-5.40); WHITE BLOOD COUNT 5.7 10^3/uL (4.0-10.0)
[2024-05-28 16:28] LABS: ERYTHROCYTE SEDIMENTATION RATE 116 mm/hr (0-30)
[2024-05-28 17:11] LABS: C REACTIVE PROTEIN QUANTITATIV 6.7 MG/DL (<1.0)
[2024-05-28 17:26] LABS: ALBUMIN 2.4 G/DL (3.2-5.2); BILIRUBIN,TOTAL 0.6 MG/DL (0.3-1.2); CALCIUM LEVEL 9.1 MG/DL (8.3-10.6); CREATININE FOR GFR 1.32 MG/DL (0.55-1.30); GLOMERULAR FILTRATION RATE 40.3 (>32); POTASSIUM SERUM 4.8 MMOL/L (3.5-5.1); TOTAL PROTEIN 6.2 G/DL (5.7-8.2)
== END ==
LOC: M SHH 14:27
PROVIDERS: ATTEND Internal Medicine Infectious Disease
DX: M25.571 Pain in right ankle and joints of right foot (principal); S90.521A Blister (nonthermal), right ankle, initial encounter

== ENCOUNTER → 2024-05-30 | Outpatient (CLI) | payer MEDICARE, OTHER | LOC: M RAD 12:25 | PROVIDERS: ATTEND Orthopaedic Surgery | DX: M25.571 Pain in right ankle and joints of right foot (principal); M19.071 Primary osteoarthritis, right ankle and foot; M89.9 Disorder of bone, unspecified ==

== ENCOUNTER → 2024-05-30 | Outpatient (CLI) | payer MEDICARE, OTHER ==
[~2024-05-30] MED LIST changes: +PROHANCE 279.3MG/ML 15ML VIAL As Ordered ONE
== END ==
LOC: M RAD 12:31
PROVIDERS: ATTEND Nurse Practitioner Family
DX: L40.0 Psoriasis vulgaris (principal); Z79.899 Other long term (current) drug therapy; Z51.81 Encounter for therapeutic drug level monitoring

== ENCOUNTER 2024-06-02 13:03 | Inpatient (IN) | payer MEDICARE, OTHER ==
[~2024-06-02] VITALS: Ht 170.2 cm; Wt 67.3 kg
[~2024-06-02 13:03] MED LIST changes: -ACET-910 PO; -C 50TAB PO; -PROHANCE 279.3MG/ML 15ML VIAL As Ordered ONE; -VITA100093 PO
[2024-06-02 14:10] VITALS: BP 145/63; TEMP 97.7; O2SAT 94
[2024-06-02 15:56] LABS: HEMATOCRIT 38.1 % (36.0-47.0); MEAN CORPUSCULAR HEMOGLOBIN 29.9 pg (27.0-33.0); MEAN CORPUSCULAR HGB CONC 31.5 g/dl (32.0-36.5); MEAN CORPUSCULAR VOLUME 94.8 fl (80.0-96.0); PLATELET COUNT, AUTOMATED 304 10^3/uL (150-450); RED BLOOD COUNT 4.02 10^6/uL (4.00-5.40)
[2024-06-02 16:23] LABS: ALBUMIN 2.6 G/DL (3.2-5.2); BILIRUBIN,TOTAL 0.6 MG/DL (0.3-1.2); CALCIUM LEVEL 9.2 MG/DL (8.3-10.6); CREATININE FOR GFR 1.23 MG/DL (0.55-1.30); GLOMERULAR FILTRATION RATE 43.8 (>32); POTASSIUM SERUM 4.2 MMOL/L (3.5-5.1); TOTAL PROTEIN 6.8 G/DL (5.7-8.2)
[2024-06-02] MEDS ORDERED: ACET-910 PO (16:47)
[2024-06-02] MEDS ORDERED: AMLO1TAB24 PO (16:47)
[2024-06-02] MEDS ORDERED: CEPH500C PO (16:47)
[2024-06-02] MEDS ORDERED: C 50TAB PO (16:47)
[2024-06-02] MEDS ORDERED: FERR1TAB8 PO (16:47)
[2024-06-02] MEDS ORDERED: VITA100093 PO (16:47)
[2024-06-02] MEDS ORDERED: HOME MED LIST COMPLETE! XX SCH (16:50)
[2024-06-02 20:00] VITALS: BP 142/68; TEMP 98.8; O2SAT 93
[2024-06-02] MEDS: amLODIPine 5 MG TAB PO SCH (20:10)
[2024-06-02] MEDS: ceFAZolin SOD 1 GM in DEXTROSE 5% (D5W) ADV/MINI-BAG 50 ML IV SCH (20:11)
[2024-06-02] MEDS: ACETAMINOPHEN 325 MG TAB PO PRN (20:11)
[2024-06-02] MEDS ORDERED: METOCLOPRAMIDE INJ 10MG/2ML VIAL IV PRN (22:20)
[2024-06-03] VITALS (10 sets, daily range): BP systolic 99–139; BP diastolic 49–62; TEMP 97–98.2; O2SAT 88–98
[2024-06-03] MEDS: NS 1,000 ML IV SCH (00:08)
[2024-06-03 06:43] LABS: HEMATOCRIT 34.8 % (36.0-47.0); HEMOGLOBIN 10.8 g/dl (12.0-15.5); MEAN CORPUSCULAR HEMOGLOBIN 29.4 pg (27.0-33.0); MEAN CORPUSCULAR VOLUME 94.8 fl (80.0-96.0); PLATELET COUNT, AUTOMATED 214 10^3/uL (150-450); RED BLOOD COUNT 3.67 10^6/uL (4.00-5.40); WHITE BLOOD COUNT 6.2 10^3/uL (4.0-10.0)
[2024-06-03 06:54] LABS: ERYTHROCYTE SEDIMENTATION RATE 103 mm/hr (0-30)
[2024-06-03 06:58] LABS: C REACTIVE PROTEIN QUANTITATIV 5.8 MG/DL (<1.0)
[2024-06-03 07:04] LABS: ALBUMIN 1.9 G/DL (3.2-5.2); BILIRUBIN,TOTAL 0.4 MG/DL (0.3-1.2); CALCIUM LEVEL 8.2 MG/DL (8.3-10.6); CREATININE FOR GFR 1.2 MG/DL (0.55-1.30); POTASSIUM SERUM 3.7 MMOL/L (3.5-5.1); TOTAL PROTEIN 5.2 G/DL (5.7-8.2)
[2024-06-03] MEDS ORDERED: propofoL 200 MG/20 ML VIAL As Ordered ONE (08:41)
[2024-06-03] MEDS ORDERED: LIDOCAINE 2% 100MG/5ML SDV (FOR ANES.) As Ordered ONE (08:42)
[2024-06-03] MEDS ORDERED: ONDANSETRON 4MG 2ML VIAL As Ordered ONE (08:42)
[2024-06-03] MEDS ORDERED: dexmedeTOMIDine (4MCG/ML)200MCG/50ML BTL (PRECEDEX) As Ordered ONE (08:44)
[2024-06-03] MEDS: FOLIC ACID 1MG TAB PO SCH (09:00)
[2024-06-03] MEDS: FERROUS SULFATE 325MG TAB PO SCH (09:00)
[2024-06-03] MEDS: VITAMIN D 1,000 INTERNATIONAL UNITS TABLET PO SCH (09:00)
[2024-06-03] MEDS: ASPIRIN 81MG ENTERIC TABLET PO SCH (09:00)
[2024-06-03] MEDS: PANTOPRAZOLE 40MG TAB (PROTONIX) PO SCH (09:00)
[2024-06-03] MEDS: ASCORBIC ACID 500 MG TAB PO SCH (09:00)
[2024-06-03] MEDS ORDERED: fentaNYL 100 MCG/2 ML INJECTION As Ordered ONE (10:09)
[2024-06-03] MEDS ORDERED: MIDAZOLAM INJ 2MG/2ML VIAL As Ordered ONE (10:09)
[2024-06-03] MEDS ORDERED: ETOMIDATE INJ 20MG/10ML VIAL As Ordered ONE (10:24)
[2024-06-03] MEDS: ceFAZolin 2 GM/D5W 50 ML IV BAG As Ordered ONE (10:43)
[2024-06-03] MEDS ORDERED: ACETAMINOPHEN 1000MG 100ML IV BAG As Ordered ONE (11:34)
[2024-06-03] MEDS: LIDOCAINE 1% SDV 30ML VIAL As Ordered ONE (12:10)
[2024-06-03] MEDS: BACITRACIN OINTMENT 30GM TUBE As Ordered ONE (12:14)
[2024-06-03 12:30] LABS: CRYSTALS, BODY FLUID NONE SEEN (NONE SEEN); SOURCE, BODY FLUID CRYSTALS RT ANKLE
[2024-06-03] MEDS ORDERED: ceFAZolin SOD 2 GM in DEXTROSE 5% (D5W) ADV/MINI-BAG 50 ML IV SCH (20:00)
[2024-06-03] MEDS: ceFAZolin SOD 2 GM in IV 1 EA IV SCH (20:46)
[2024-06-04] VITALS (7 sets, daily range): BP systolic 102–106; BP diastolic 52–71; TEMP 97.5–97.9; O2SAT 92–95
[2024-06-04] MEDS: traMADol 50 MG TAB PO ONE (00:22)
[2024-06-04] MEDS ORDERED: PERCOCET 5MG/325MG TAB PO PRN (12:10)
[2024-06-04] MEDS: PERCOCET 5MG/325MG TAB PO PRN (12:25)
[2024-06-04] MEDS: SODIUM CHLORIDE 0.9% INJ 10 ML SYR IV SCH (17:23)
[2024-06-04] MEDS: SENOKOT S TAB PO PRN (17:23)
[2024-06-05 02:50] VITALS: O2SAT 94
[2024-06-05 03:20] VITALS: BP 106/58; TEMP 98.4; O2SAT 94
[2024-06-05 06:02] LABS: HEMOGLOBIN 9.3 g/dl (12.0-15.5); MEAN CORPUSCULAR HEMOGLOBIN 28.8 pg (27.0-33.0); PLATELET COUNT, AUTOMATED 212 10^3/uL (150-450); RED BLOOD COUNT 3.23 10^6/uL (4.00-5.40); WHITE BLOOD COUNT 5.2 10^3/uL (4.0-10.0)
[2024-06-05 12:00] VITALS: BP 115/78; TEMP 97; O2SAT 100
[2024-06-05 16:34] LABS: CPK CREATINE PHOSPHOKINASE < 15 U/L (34-145)
[2024-06-05 20:00] VITALS: BP 110/60; TEMP 98.1; O2SAT 92
[2024-06-05 21:00] VITALS: O2SAT 93
[2024-06-06 04:00] VITALS: BP 120/62; TEMP 98.1; O2SAT 92
[2024-06-06 06:05] LABS: HEMATOCRIT 31.5 % (36.0-47.0); HEMOGLOBIN 9.6 g/dl (12.0-15.5); MEAN CORPUSCULAR HEMOGLOBIN 29.4 pg (27.0-33.0); MEAN CORPUSCULAR HGB CONC 30.5 g/dl (32.0-36.5); MEAN CORPUSCULAR VOLUME 96.6 fl (80.0-96.0); PLATELET COUNT, AUTOMATED 209 10^3/uL (150-450); RED BLOOD COUNT 3.26 10^6/uL (4.00-5.40); WHITE BLOOD COUNT 4.6 10^3/uL (4.0-10.0)
[2024-06-06] MEDS: METAMUCIL (PSYLLIUM) PACKET PO SCH (09:00)
[2024-06-06] MEDS ORDERED: METAMUCIL (PSYLLIUM) PACKET PO SCH (09:00)
[2024-06-06 12:00] VITALS: BP 138/60; TEMP 98.4; O2SAT 93
[2024-06-06] MEDS: MIRALAX *UNIT DOSE* 17GM PACKET PO ONE (12:09)
[2024-06-06] MEDS: SODIUM CHLORIDE 0.9% INJ 10 ML SYR IV PRN (13:29)
[2024-06-06 20:00] VITALS: BP 150/62; TEMP 97.9; O2SAT 95
[2024-06-07 04:00] VITALS: BP 140/74; TEMP 97.7; O2SAT 95
[2024-06-07 06:03] LABS: HEMATOCRIT 33.1 % (36.0-47.0); HEMOGLOBIN 10.2 g/dl (12.0-15.5); MEAN CORPUSCULAR HEMOGLOBIN 29.1 pg (27.0-33.0); MEAN CORPUSCULAR HGB CONC 30.8 g/dl (32.0-36.5); MEAN CORPUSCULAR VOLUME 94.3 fl (80.0-96.0); PLATELET COUNT, AUTOMATED 187 10^3/uL (150-450); RED BLOOD COUNT 3.51 10^6/uL (4.00-5.40)
[2024-06-07 06:45] LABS: CALCIUM LEVEL 8.5 MG/DL (8.3-10.6); CREATININE FOR GFR 1.01 MG/DL (0.55-1.30); GLOMERULAR FILTRATION RATE 54.9 (>32); MAGNESIUM LEVEL 2.2 MG/DL (1.8-2.4); POTASSIUM SERUM 5.6 MMOL/L (3.5-5.1)
[2024-06-07] MEDS: DAPTOmycin 500 MG in NS 50 ML IV SCH (11:27)
[2024-06-07 12:00] VITALS: BP 108/75; TEMP 97.9; O2SAT 96
[2024-06-07 17:15] VITALS: BP 107/56; TEMP 97.3; O2SAT 95
[2024-06-07 20:00] VITALS: BP 165/57; TEMP 98.1; O2SAT 96
[2024-06-08 04:36] VITALS: BP 154/55; TEMP 98.1; O2SAT 95
[2024-06-08 05:52] LABS: HEMATOCRIT 33.4 % (36.0-47.0); HEMOGLOBIN 10.3 g/dl (12.0-15.5); MEAN CORPUSCULAR HEMOGLOBIN 29.3 pg (27.0-33.0); MEAN CORPUSCULAR HGB CONC 30.8 g/dl (32.0-36.5); MEAN CORPUSCULAR VOLUME 94.9 fl (80.0-96.0); PLATELET COUNT, AUTOMATED 172 10^3/uL (150-450); RED BLOOD COUNT 3.52 10^6/uL (4.00-5.40); WHITE BLOOD COUNT 4.1 10^3/uL (4.0-10.0)
[2024-06-08 11:35] VITALS: BP 155/81; TEMP 98.4; O2SAT 96
[2024-06-08 11:40] VITALS: O2SAT 98
[2024-06-08 20:00] VITALS: BP 100/82; TEMP 98.4; O2SAT 95; O2SAT 98
[2024-06-08 23:00] VITALS: O2SAT 82
[2024-06-09 04:00] VITALS: BP 151/56; TEMP 97.9; O2SAT 98
[2024-06-09 06:11] LABS: HEMATOCRIT 32.7 % (36.0-47.0); HEMOGLOBIN 10.1 g/dl (12.0-15.5); MEAN CORPUSCULAR HEMOGLOBIN 29.4 pg (27.0-33.0); MEAN CORPUSCULAR HGB CONC 30.9 g/dl (32.0-36.5); MEAN CORPUSCULAR VOLUME 95.3 fl (80.0-96.0); PLATELET COUNT, AUTOMATED 156 10^3/uL (150-450); RED BLOOD COUNT 3.43 10^6/uL (4.00-5.40); WHITE BLOOD COUNT 3.6 10^3/uL (4.0-10.0)
[2024-06-09 07:57] VITALS: BP 128/82; TEMP 98.1; O2SAT 98
[2024-06-09 12:01] VITALS: BP 146/80; TEMP 97.3; O2SAT 95
[2024-06-09 18:52] LABS: BLOOD UREA NITROGEN 19 MG/DL (9-23); CALCIUM LEVEL 8.3 MG/DL (8.3-10.6); CARBON DIOXIDE LEVEL 28 MMOL/L (20-31); CHLORIDE LEVEL 107 MMOL/L (98-107); CPK CREATINE PHOSPHOKINASE < 15 U/L (34-145); CREATININE FOR GFR 1.13 MG/DL (0.55-1.30); GLOMERULAR FILTRATION RATE 48.3 (>32); GLUCOSE, FASTING 87 MG/DL (74-106); POTASSIUM SERUM 4.7 MMOL/L (3.5-5.1); SODIUM LEVEL 139 MMOL/L (136-145)
[2024-06-09 21:00] VITALS: BP 132/62; TEMP 98.1; O2SAT 94; O2SAT 98
[2024-06-10 04:22] VITALS: BP 146/62; TEMP 98.1; O2SAT 95
[2024-06-10 05:51] LABS: HEMATOCRIT 33.2 % (36.0-47.0); HEMOGLOBIN 10.2 g/dl (12.0-15.5); MEAN CORPUSCULAR HGB CONC 30.7 g/dl (32.0-36.5); MEAN CORPUSCULAR VOLUME 94.3 fl (80.0-96.0); PLATELET COUNT, AUTOMATED 153 10^3/uL (150-450); RED BLOOD COUNT 3.52 10^6/uL (4.00-5.40); WHITE BLOOD COUNT 4.7 10^3/uL (4.0-10.0)
[2024-06-10 06:33] VITALS: O2SAT 98
[2024-06-10 10:15] VITALS: BP 148/62
== END 2024-06-10 12:21 | disposition home health service (06) | DRG 493 ==
LOC: M MSPAV 13:23
PROVIDERS: ADMIT Internal Medicine Nephrology; ATTEND Internal Medicine
PROC: 0SPF04Z Removal of Internal Fixation Device from Right Ankle Joint, Open Approach (ICD-10-PCS; principal; 2024-06-03 10:00)
DX: T84.69XA Infection and inflammatory reaction due to internal fixation device of other site, initial encounter (principal); M86.8X7 Other osteomyelitis, ankle and foot; L97.319 Non-pressure chronic ulcer of right ankle with unspecified severity; L40.9 Psoriasis, unspecified; I10 Essential (primary) hypertension; Z86.73 Personal history of transient ischemic attack (TIA), and cerebral infarction without residual deficits; M06.9 Rheumatoid arthritis, unspecified; Z85.828 Personal history of other malignant neoplasm of skin; K21.9 Gastro-esophageal reflux disease without esophagitis; E78.5 Hyperlipidemia, unspecified; E55.9 Vitamin D deficiency, unspecified; D50.9 Iron deficiency anemia, unspecified; R26.89 Other abnormalities of gait and mobility; Z87.891 Personal history of nicotine dependence; Z96.641 Presence of right artificial hip joint; Z79.82 Long term (current) use of aspirin; Z88.0 Allergy status to penicillin; Z79.899 Other long term (current) drug therapy

== ENCOUNTER → 2024-06-16 | Outpatient (REF) | payer MEDICARE ==
[~2024-06-16] MED LIST changes: +ACET-910 PO; +C 50TAB PO; +VITA100093 PO
[2024-06-16 15:33] LABS: HEMATOCRIT 33.7 % (36.0-47.0); HEMOGLOBIN 10.4 g/dl (12.0-15.5); MEAN CORPUSCULAR HEMOGLOBIN 29.1 pg (27.0-33.0); MEAN CORPUSCULAR HGB CONC 30.9 g/dl (32.0-36.5); MEAN CORPUSCULAR VOLUME 94.4 fl (80.0-96.0); PLATELET COUNT, AUTOMATED 216 10^3/uL (150-450); RED BLOOD COUNT 3.57 10^6/uL (4.00-5.40); WHITE BLOOD COUNT 4.9 10^3/uL (4.0-10.0)
[2024-06-16 15:48] LABS: ERYTHROCYTE SEDIMENTATION RATE 94 mm/hr (0-30)
[2024-06-16 15:54] LABS: C REACTIVE PROTEIN QUANTITATIV 3.6 MG/DL (<1.0)
[2024-06-16 15:56] LABS: CALCIUM LEVEL 8.2 MG/DL (8.3-10.6); CREATININE FOR GFR 1.14 MG/DL (0.55-1.30); GLOMERULAR FILTRATION RATE 47.8 (>32); POTASSIUM SERUM 4.2 MMOL/L (3.5-5.1)
== END ==
LOC: M SHH 15:12
PROVIDERS: ATTEND Internal Medicine Infectious Disease
DX: Z51.81 Encounter for therapeutic drug level monitoring (principal); Z79.899 Other long term (current) drug therapy; M86.9 Osteomyelitis, unspecified

== ENCOUNTER → 2024-06-18 | Outpatient (CLI) | payer MEDICARE | LOC: M SOG 07:59 | PROVIDERS: ATTEND Physician Assistant | DX: M25.571 Pain in right ankle and joints of right foot (principal) ==

== ENCOUNTER → 2024-06-23 | Outpatient (REF) | payer MEDICARE ==
[2024-06-23 14:56] LABS: HEMATOCRIT 36.6 % (36.0-47.0); HEMOGLOBIN 11.1 g/dl (12.0-15.5); MEAN CORPUSCULAR HEMOGLOBIN 29.1 pg (27.0-33.0); MEAN CORPUSCULAR HGB CONC 30.3 g/dl (32.0-36.5); MEAN CORPUSCULAR VOLUME 95.8 fl (80.0-96.0); PLATELET COUNT, AUTOMATED 263 10^3/uL (150-450); RED BLOOD COUNT 3.82 10^6/uL (4.00-5.40); WHITE BLOOD COUNT 3.4 10^3/uL (4.0-10.0)
[2024-06-23 15:11] LABS: ERYTHROCYTE SEDIMENTATION RATE 74 mm/hr (0-30)
[2024-06-23 15:15] LABS: C REACTIVE PROTEIN QUANTITATIV 0.5 MG/DL (<1.0)
[2024-06-23 15:16] LABS: CALCIUM LEVEL 8.5 MG/DL (8.3-10.6); CREATININE FOR GFR 1.2 MG/DL (0.55-1.30)
== END ==
LOC: M SHH 14:36
PROVIDERS: ATTEND Internal Medicine Infectious Disease
DX: Z51.81 Encounter for therapeutic drug level monitoring (principal); M86.9 Osteomyelitis, unspecified

== ENCOUNTER → 2024-06-30 | Outpatient (REF) | payer MEDICARE, OTHER ==
[2024-06-30 13:46] LABS: HEMATOCRIT 36.8 % (36.0-47.0); HEMOGLOBIN 11.3 g/dl (12.0-15.5); MEAN CORPUSCULAR HEMOGLOBIN 29.3 pg (27.0-33.0); MEAN CORPUSCULAR HGB CONC 30.7 g/dl (32.0-36.5); MEAN CORPUSCULAR VOLUME 95.3 fl (80.0-96.0); PLATELET COUNT, AUTOMATED 180 10^3/uL (150-450); RED BLOOD COUNT 3.86 10^6/uL (4.00-5.40); WHITE BLOOD COUNT 4.5 10^3/uL (4.0-10.0)
[2024-06-30 13:53] LABS: ERYTHROCYTE SEDIMENTATION RATE 54 mm/hr (0-30)
[2024-06-30 14:16] LABS: C REACTIVE PROTEIN QUANTITATIV < 0.40 MG/DL (<1.0)
[2024-06-30 14:18] LABS: BLOOD UREA NITROGEN 17 MG/DL (9-23); CALCIUM LEVEL 8.6 MG/DL (8.3-10.6); CARBON DIOXIDE LEVEL 31 MMOL/L (20-31); CHLORIDE LEVEL 103 MMOL/L (98-107); CPK CREATINE PHOSPHOKINASE 39 U/L (34-145); GLUCOSE, FASTING 88 MG/DL (74-106); POTASSIUM SERUM 4.1 MMOL/L (3.5-5.1); SODIUM LEVEL 139 MMOL/L (136-145)
== END ==
LOC: M SHH 13:30
PROVIDERS: ATTEND Internal Medicine Infectious Disease
DX: Z79.899 Other long term (current) drug therapy (principal)

== ENCOUNTER → 2024-07-07 | Outpatient (REF) | payer MEDICARE, OTHER ==
[2024-07-07 15:29] LABS: HEMATOCRIT 37.9 % (36.0-47.0); HEMOGLOBIN 11.7 g/dl (12.0-15.5); MEAN CORPUSCULAR HEMOGLOBIN 29.8 pg (27.0-33.0); MEAN CORPUSCULAR HGB CONC 30.9 g/dl (32.0-36.5); MEAN CORPUSCULAR VOLUME 96.7 fl (80.0-96.0); PLATELET COUNT, AUTOMATED 157 10^3/uL (150-450); RED BLOOD COUNT 3.92 10^6/uL (4.00-5.40); WHITE BLOOD COUNT 4.4 10^3/uL (4.0-10.0)
[2024-07-07 15:37] LABS: ERYTHROCYTE SEDIMENTATION RATE 60 mm/hr (0-30)
[2024-07-07 15:46] LABS: C REACTIVE PROTEIN QUANTITATIV < 0.40 MG/DL (<1.0)
[2024-07-07 15:47] LABS: BLOOD UREA NITROGEN 21 MG/DL (9-23); CALCIUM LEVEL 9.1 MG/DL (8.3-10.6); CARBON DIOXIDE LEVEL 30 MMOL/L (20-31); CHLORIDE LEVEL 104 MMOL/L (98-107); CPK CREATINE PHOSPHOKINASE 30 U/L (34-145); CREATININE FOR GFR 1.19 MG/DL (0.55-1.30); GLOMERULAR FILTRATION RATE 45.5 (>32); GLUCOSE, FASTING 88 MG/DL (74-106); SODIUM LEVEL 138 MMOL/L (136-145)
== END ==
LOC: M SHH 14:39
PROVIDERS: ATTEND Internal Medicine Infectious Disease
DX: Z51.81 Encounter for therapeutic drug level monitoring (principal); Z79.899 Other long term (current) drug therapy

== ENCOUNTER → 2024-07-14 | Outpatient (REF) | payer MEDICARE, OTHER ==
[2024-07-14 15:36] LABS: HEMATOCRIT 38.4 % (36.0-47.0); HEMOGLOBIN 11.9 g/dl (12.0-15.5); MEAN CORPUSCULAR HEMOGLOBIN 30.1 pg (27.0-33.0); PLATELET COUNT, AUTOMATED 158 10^3/uL (150-450); RED BLOOD COUNT 3.96 10^6/uL (4.00-5.40); WHITE BLOOD COUNT 4.3 10^3/uL (4.0-10.0)
[2024-07-14 15:58] LABS: ERYTHROCYTE SEDIMENTATION RATE 38 mm/hr (0-30)
[2024-07-14 16:03] LABS: BLOOD UREA NITROGEN 23 MG/DL (9-23); C REACTIVE PROTEIN QUANTITATIV < 0.50 MG/DL (<1.0); CARBON DIOXIDE LEVEL 30 MMOL/L (20-31); CHLORIDE LEVEL 104 MMOL/L (98-107); CPK CREATINE PHOSPHOKINASE 28 U/L (34-145); CREATININE FOR GFR 1.22 MG/DL (0.55-1.30); GLOMERULAR FILTRATION RATE 44.2 (>32); GLUCOSE, FASTING 96 MG/DL (74-106); POTASSIUM SERUM 4.3 MMOL/L (3.5-5.1); SODIUM LEVEL 141 MMOL/L (136-145)
== END ==
LOC: M SHH 14:59
PROVIDERS: ATTEND Internal Medicine Infectious Disease
DX: Z51.81 Encounter for therapeutic drug level monitoring (principal); Z79.899 Other long term (current) drug therapy

== ENCOUNTER → 2024-07-21 | Outpatient (REF) | payer MEDICARE, OTHER ==
[2024-07-21 14:31] LABS: HEMATOCRIT 38.2 % (36.0-47.0); HEMOGLOBIN 11.8 g/dl (12.0-15.5); MEAN CORPUSCULAR HEMOGLOBIN 29.7 pg (27.0-33.0); MEAN CORPUSCULAR HGB CONC 30.9 g/dl (32.0-36.5); MEAN CORPUSCULAR VOLUME 96.2 fl (80.0-96.0); PLATELET COUNT, AUTOMATED 172 10^3/uL (150-450); RED BLOOD COUNT 3.97 10^6/uL (4.00-5.40); WHITE BLOOD COUNT 4.3 10^3/uL (4.0-10.0)
[2024-07-21 14:41] LABS: ERYTHROCYTE SEDIMENTATION RATE 35 mm/hr (0-30)
== END ==
LOC: M SHH 13:32
PROVIDERS: ATTEND Internal Medicine Infectious Disease
DX: Z00.00 Encounter for general adult medical examination without abnormal findings (principal)

== ENCOUNTER 2024-08-03 10:42 | Inpatient (IN) | payer MEDICARE, OTHER ==
[~2024-08-03] VITALS: Ht 170.2 cm; Wt 71.0 kg
[2024-08-03 13:10] LABS: BASO % 0.3 % (0.0-1.0); HEMATOCRIT 40.3 % (36.0-47.0); HEMOGLOBIN 12.8 g/dl (12.0-15.5); MEAN CORPUSCULAR HEMOGLOBIN 30.2 pg (27.0-33.0); MEAN CORPUSCULAR HGB CONC 31.8 g/dl (32.0-36.5); MONO # 0.5 10^3/uL (0.0-0.8); MONO % 7.1 % (2.0-8.0); NEUTROPHILS # 5.3 10^3/uL (1.5-8.5); NEUTROPHILS % 77.3 % (36.0-66.0); PLATELET COUNT, AUTOMATED 123 10^3/uL (150-450); RED BLOOD COUNT 4.24 10^6/uL (4.00-5.40); WHITE BLOOD COUNT 6.9 10^3/uL (4.0-10.0)
[2024-08-03 13:14] LABS: ERYTHROCYTE SEDIMENTATION RATE 115 mm/hr (0-30)
[2024-08-03 13:37] LABS: C REACTIVE PROTEIN QUANTITATIV 15.7 MG/DL (<1.0)
[2024-08-03 13:38] LABS: CALCIUM LEVEL 8.5 MG/DL (8.3-10.6); CREATININE FOR GFR 1.11 MG/DL (0.55-1.30); GLOMERULAR FILTRATION RATE 49.3 (>32)
[2024-08-03] MEDS ORDERED: PROHANCE 279.3MG/ML 15ML VIAL As Ordered ONE (14:25)
[2024-08-03] MEDS: ceFAZolin SOD 2 GM in IV 1 EA IV ONE (15:56)
[2024-08-03] MEDS: ACETAMINOPHEN 325 MG TAB PO ONE (15:56)
[2024-08-03] MEDS ORDERED: VANCOMYCIN HCL 750 MG, VIAL MATE ADAPTER 1 EACH in NS 250 ML IV SCH (16:35)
[2024-08-03] MEDS ORDERED: HEPARIN SOD (PORCINE) 5000UNITS/ML 1ML VIAL/SYRINGE SC SCH (16:35)
[2024-08-03] MEDS ORDERED: ACETAMINOPHEN 325 MG TAB PO PRN (16:35)
[2024-08-03] MEDS ORDERED: MOM 30ML SUSPENSION UDC PO PRN (16:35)
[2024-08-03] MEDS ORDERED: MAALOX 30 ML SUSP *UDC PO PRN (16:35)
[2024-08-03] MEDS ORDERED: MORPHINE 2 MG/ML 1ML VIAL IV PRN (16:55)
[2024-08-03] MEDS: VANCOMYCIN HCL 1,500 MG, VIAL MATE ADAPTER 1 EACH in NS 500 ML IV ONE (17:20)
[2024-08-03] MEDS ORDERED: HOME MED LIST COMPLETE! XX SCH (17:40)
[2024-08-03] MEDS: NS (Normal Saline) 0.9% 1,000 ML IV SCH (18:17)
[2024-08-03 18:25] LABS: INR 1.13; PARTIAL THROMBOPLASTIN TIME 32.8 SECONDS (24.8-34.2); PROTHROMBIN TIME 14.8 SECONDS (12.5-14.5)
[2024-08-03] MEDS: ENOXAPARIN 80MG/0.8ML SYRINGE (J1650 PER 10MG) SC ONE (18:48)
[2024-08-03] MEDS: SIMVASTATIN 20 MG TAB PO SCH (20:36)
[2024-08-03] MEDS: DOCUSATE SODIUM 100MG CAPSULE PO SCH (20:36)
[2024-08-03] MEDS: LR 1,000 ML IV ONE (21:18)
[2024-08-03] MEDS: NS 500 ML IV ONE (21:18)
[2024-08-03 22:37] VITALS: BP 119/58; TEMP 98.2; O2SAT 96
[2024-08-03] MEDS: ceFAZolin SOD 2 GM in IV 1 EA IV SCH (23:32)
[2024-08-04 03:37] VITALS: BP 135/61; TEMP 98.6; O2SAT 93
[2024-08-04 06:14] LABS: BASO % 0.2 % (0.0-1.0); HEMATOCRIT 33.3 % (36.0-47.0); LYMPH # 0.9 10^3/uL (1.5-5.0); LYMPH % 18.5 % (24.0-44.0); MEAN CORPUSCULAR HEMOGLOBIN 29.7 pg (27.0-33.0); MEAN CORPUSCULAR HGB CONC 31.5 g/dl (32.0-36.5); MEAN CORPUSCULAR VOLUME 94.3 fl (80.0-96.0); MONO # 0.5 10^3/uL (0.0-0.8); MONO % 9.5 % (2.0-8.0); NEUTROPHILS # 3.5 10^3/uL (1.5-8.5); NEUTROPHILS % 71.4 % (36.0-66.0); PLATELET COUNT, AUTOMATED 113 10^3/uL (150-450); RED BLOOD COUNT 3.53 10^6/uL (4.00-5.40)
[2024-08-04 06:25] LABS: HEMOGLOBIN 10.5 g/dl (12.0-15.5)
[2024-08-04 06:38] LABS: C REACTIVE PROTEIN QUANTITATIV 13.33 MG/DL (<1.0)
[2024-08-04 06:39] LABS: CALCIUM LEVEL 8.1 MG/DL (8.3-10.6); CREATININE FOR GFR 1.15 MG/DL (0.55-1.30); GLOMERULAR FILTRATION RATE 47.3 (>32); POTASSIUM SERUM 3.8 MMOL/L (3.5-5.1)
[2024-08-04 07:37] VITALS: BP 134/64; TEMP 98.5; O2SAT 92
[2024-08-04] MEDS: ASPIRIN 81MG ENTERIC TABLET PO SCH (08:32)
[2024-08-04] MEDS: VITAMIN D 1,000 INTERNATIONAL UNITS TABLET PO SCH (08:32)
[2024-08-04] MEDS: amLODIPine 5 MG TAB PO SCH (08:32)
[2024-08-04] MEDS: FERROUS SULFATE 325MG TAB PO SCH (08:32)
[2024-08-04] MEDS: CYANOCOBALAMIN 500 MCG TAB PO SCH (08:32)
[2024-08-04] MEDS: FOLIC ACID 1MG TAB PO SCH (08:32)
[2024-08-04] MEDS: ASCORBIC ACID 500 MG TAB PO SCH (08:32)
[2024-08-04] MEDS ORDERED: HEPARIN SOD (PORCINE) 5000UNITS/ML 1ML VIAL/SYRINGE IV PRN (08:35)
[2024-08-04 09:04] LABS: VANCOMYCIN RANDOM 15.7 UG/ML
[2024-08-04] MEDS: HEPARIN SOD (PORCINE) 5000UNITS/ML 1ML VIAL/SYRINGE IV ONE (10:26)
[2024-08-04] MEDS: HEPARIN DRIP 25,000 UNITS in IV 1 EA IV SCH (10:31)
[2024-08-04 11:04] LABS: KETONE, URINE AUTO RFX NEGATIVE (NEGATIVE); LEUKOCYTE ESTERASE UR AUTO RFX NEGATIVE (NEGATIVE); MUCUS, URINE RFX SMALL (NEGATIVE); NITRITE, URINE AUTO RFX NEGATIVE (NEGATIVE); RBC, URINE AUTO RFX 6 /HPF (0-3); SQUAM EPITHELIAL CELL UR AURFX 1 /HPF (0-6); WBC, URINE AUTO RFX 1 /HPF (0-3)
[2024-08-04] MEDS: VANCOMYCIN 1,000MG/200 ML IV BAG IV SCH (11:30)
[2024-08-04 12:14] VITALS: BP 122/60; TEMP 98.6; O2SAT 92
[2024-08-04 16:24] VITALS: BP 110/59; TEMP 98; O2SAT 93
[2024-08-04 19:34] VITALS: BP 93/60; TEMP 98.6; O2SAT 93
[2024-08-04 23:42] VITALS: BP 111/57; TEMP 98.7; O2SAT 94
[2024-08-05 03:46] VITALS: BP 101/58; TEMP 98.7; O2SAT 93
[2024-08-05 06:42] LABS: BASO % 0.2 % (0.0-1.0); EOS % 0.2 % (0.0-3.0); HEMOGLOBIN 10.2 g/dl (12.0-15.5); LYMPH % 21.7 % (24.0-44.0); MEAN CORPUSCULAR HEMOGLOBIN 29.7 pg (27.0-33.0); MEAN CORPUSCULAR HGB CONC 31.9 g/dl (32.0-36.5); MEAN CORPUSCULAR VOLUME 93.3 fl (80.0-96.0); MONO # 0.4 10^3/uL (0.0-0.8); MONO % 7.8 % (2.0-8.0); NEUTROPHILS # 3.3 10^3/uL (1.5-8.5); NEUTROPHILS % 69.7 % (36.0-66.0); PLATELET COUNT, AUTOMATED 127 10^3/uL (150-450); RED BLOOD COUNT 3.43 10^6/uL (4.00-5.40); WHITE BLOOD COUNT 4.8 10^3/uL (4.0-10.0)
[2024-08-05 07:33] LABS: C REACTIVE PROTEIN QUANTITATIV 8.09 MG/DL (<1.0); CALCIUM LEVEL 8.3 MG/DL (8.3-10.6); CREATININE FOR GFR 1.06 MG/DL (0.55-1.30); MAGNESIUM LEVEL 2.1 MG/DL (1.8-2.4); POTASSIUM SERUM 3.7 MMOL/L (3.5-5.1)
[2024-08-05 07:52] VITALS: BP 109/57; TEMP 97.6; O2SAT 94
[2024-08-05] MEDS ORDERED: VANCOMYCIN HCL 1,000 MG, VIAL MATE ADAPTER 1 EACH in NS 250 ML IV SCH (11:00)
[2024-08-05] MEDS ORDERED: IPRATROPIUM 0.5MG/ALBUTEROL 2.5MG INH SOL UD 3ML (DUONEB) NEB PRN (11:10)
[2024-08-05] MEDS: FUROSEMIDE 20 MG TAB PO ONE (12:26)
[2024-08-05 15:29] VITALS: BP 90/54; TEMP 97.3; O2SAT 92
[2024-08-05 17:14] LABS: CREATININE FOR GFR 1.07 MG/DL (0.55-1.30); GLOMERULAR FILTRATION RATE 51.4 (>32)
[2024-08-05] MEDS: ENOXAPARIN 80MG/0.8ML SYRINGE (J1650 PER 10MG) SC SCH (17:17)
[2024-08-05 19:44] VITALS: BP 95/57; TEMP 98.1; O2SAT 94
[2024-08-06 03:40] VITALS: BP 98/56; TEMP 97.3; O2SAT 66
[2024-08-06 06:06] LABS: BASO % 0.6 % (0.0-1.0); EOS % 0.3 % (0.0-3.0); HEMATOCRIT 32.6 % (36.0-47.0); HEMOGLOBIN 10.3 g/dl (12.0-15.5); MEAN CORPUSCULAR HEMOGLOBIN 29.4 pg (27.0-33.0); MEAN CORPUSCULAR HGB CONC 31.6 g/dl (32.0-36.5); MEAN CORPUSCULAR VOLUME 93.1 fl (80.0-96.0); MONO # 0.3 10^3/uL (0.0-0.8); MONO % 10.4 % (2.0-8.0); NEUTROPHILS % 59.4 % (36.0-66.0); PLATELET COUNT, AUTOMATED 148 10^3/uL (150-450); WHITE BLOOD COUNT 3.3 10^3/uL (4.0-10.0)
[2024-08-06 06:28] LABS: C REACTIVE PROTEIN QUANTITATIV 5.65 MG/DL (<1.0)
[2024-08-06 06:29] LABS: CALCIUM LEVEL 8.3 MG/DL (8.3-10.6); CREATININE FOR GFR 1.16 MG/DL (0.55-1.30); GLOMERULAR FILTRATION RATE 46.8 (>32); MAGNESIUM LEVEL 2.1 MG/DL (1.8-2.4); POTASSIUM SERUM 3.7 MMOL/L (3.5-5.1)
[2024-08-06 07:48] VITALS: BP 84/54; TEMP 97.4; O2SAT 96
[2024-08-06] MEDS: NS 500 ML IV ONE (08:31)
[2024-08-06] MEDS: FUROSEMIDE 10MG PER 1/2 TABLET PO SCH (09:30)
[2024-08-06 16:00] VITALS: BP 102/56; TEMP 97.6; O2SAT 96
[2024-08-06 21:07] VITALS: BP 125/57; TEMP 97; O2SAT 92
[2024-08-06] MEDS: ceFAZolin SOD 2 GM in IV 1 EA IV SCH (21:30)
[2024-08-07 06:15] VITALS: BP 140/65; TEMP 97.9; O2SAT 94
[2024-08-07 07:19] LABS: BASO % 0.3 % (0.0-1.0); HEMATOCRIT 34.8 % (36.0-47.0); HEMOGLOBIN 10.8 g/dl (12.0-15.5); MEAN CORPUSCULAR HEMOGLOBIN 28.9 pg (27.0-33.0); MONO # 0.3 10^3/uL (0.0-0.8); MONO % 11.2 % (2.0-8.0); NEUTROPHILS # 1.6 10^3/uL (1.5-8.5); NEUTROPHILS % 55.2 % (36.0-66.0); PLATELET COUNT, AUTOMATED 169 10^3/uL (150-450); RED BLOOD COUNT 3.74 10^6/uL (4.00-5.40); WHITE BLOOD COUNT 2.9 10^3/uL (4.0-10.0)
[2024-08-07 07:34] LABS: C REACTIVE PROTEIN QUANTITATIV 3.56 MG/DL (<1.0); CALCIUM LEVEL 8.8 MG/DL (8.3-10.6); CREATININE FOR GFR 1.11 MG/DL (0.55-1.30); GLOMERULAR FILTRATION RATE 49.3 (>32); POTASSIUM SERUM 3.8 MMOL/L (3.5-5.1)
[2024-08-07 08:21] VITALS: BP 134/74; TEMP 97.7; O2SAT 96
[2024-08-07 20:00] VITALS: BP 154/67; TEMP 98.6; O2SAT 95
[2024-08-08 04:07] VITALS: BP 146/53; TEMP 98.4; O2SAT 93
[2024-08-08 06:29] LABS: BASO % 0.3 % (0.0-1.0); HEMATOCRIT 36.3 % (36.0-47.0); HEMOGLOBIN 11.4 g/dl (12.0-15.5); LYMPH # 0.9 10^3/uL (1.5-5.0); LYMPH % 31.9 % (24.0-44.0); MEAN CORPUSCULAR HEMOGLOBIN 29.6 pg (27.0-33.0); MEAN CORPUSCULAR HGB CONC 31.4 g/dl (32.0-36.5); MEAN CORPUSCULAR VOLUME 94.3 fl (80.0-96.0); MONO # 0.3 10^3/uL (0.0-0.8); MONO % 10.8 % (2.0-8.0); NEUTROPHILS # 1.6 10^3/uL (1.5-8.5); NEUTROPHILS % 56.7 % (36.0-66.0); PLATELET COUNT, AUTOMATED 186 10^3/uL (150-450); RED BLOOD COUNT 3.85 10^6/uL (4.00-5.40); WHITE BLOOD COUNT 2.9 10^3/uL (4.0-10.0)
[2024-08-08 06:43] LABS: C REACTIVE PROTEIN QUANTITATIV 2.27 MG/DL (<1.0)
[2024-08-08 06:44] LABS: CALCIUM LEVEL 8.8 MG/DL (8.3-10.6); GLOMERULAR FILTRATION RATE 55.6 (>32); MAGNESIUM LEVEL 2.2 MG/DL (1.8-2.4); POTASSIUM SERUM 3.9 MMOL/L (3.5-5.1)
[2024-08-08 12:00] VITALS: BP 138/63; TEMP 97.9; O2SAT 94
[2024-08-08 20:04] VITALS: BP 121/60; TEMP 98.6; O2SAT 97
[2024-08-09 04:00] VITALS: BP 122/49; TEMP 97.9; O2SAT 95
[2024-08-09 07:29] LABS: BASO % 0.6 % (0.0-1.0); HEMATOCRIT 35.2 % (36.0-47.0); HEMOGLOBIN 10.9 g/dl (12.0-15.5); LYMPH # 1.3 10^3/uL (1.5-5.0); LYMPH % 38.1 % (24.0-44.0); MEAN CORPUSCULAR HEMOGLOBIN 29.1 pg (27.0-33.0); MEAN CORPUSCULAR VOLUME 94.1 fl (80.0-96.0); MONO # 0.4 10^3/uL (0.0-0.8); MONO % 11.1 % (2.0-8.0); NEUTROPHILS # 1.8 10^3/uL (1.5-8.5); NEUTROPHILS % 50.2 % (36.0-66.0); PLATELET COUNT, AUTOMATED 203 10^3/uL (150-450); RED BLOOD COUNT 3.74 10^6/uL (4.00-5.40); WHITE BLOOD COUNT 3.5 10^3/uL (4.0-10.0)
[2024-08-09 07:54] LABS: C REACTIVE PROTEIN QUANTITATIV 1.39 MG/DL (<1.0); CALCIUM LEVEL 8.7 MG/DL (8.3-10.6); CREATININE FOR GFR 1.01 MG/DL (0.55-1.30); GLOMERULAR FILTRATION RATE 54.9 (>32); MAGNESIUM LEVEL 2.3 MG/DL (1.8-2.4); POTASSIUM SERUM 4.2 MMOL/L (3.5-5.1)
[2024-08-09 12:00] VITALS: BP 136/63; TEMP 98.1; O2SAT 94
[2024-08-09 19:25] VITALS: BP 136/57; TEMP 98.2; O2SAT 95
[2024-08-10 04:35] VITALS: BP 137/64; TEMP 97.7; O2SAT 97
[2024-08-10 08:02] LABS: BASO % 0.3 % (0.0-1.0); EOS # 0.2 10^3/uL (0.0-0.5); EOS % 4.7 % (0.0-3.0); HEMATOCRIT 35.2 % (36.0-47.0); LYMPH % 31.8 % (24.0-44.0); MEAN CORPUSCULAR HEMOGLOBIN 29.3 pg (27.0-33.0); MEAN CORPUSCULAR HGB CONC 31.3 g/dl (32.0-36.5); MEAN CORPUSCULAR VOLUME 93.6 fl (80.0-96.0); MONO # 0.4 10^3/uL (0.0-0.8); MONO % 11.2 % (2.0-8.0); NEUTROPHILS # 1.7 10^3/uL (1.5-8.5); NEUTROPHILS % 51.7 % (36.0-66.0); PLATELET COUNT, AUTOMATED 207 10^3/uL (150-450); RED BLOOD COUNT 3.76 10^6/uL (4.00-5.40); WHITE BLOOD COUNT 3.2 10^3/uL (4.0-10.0)
[2024-08-10 08:33] LABS: CALCIUM LEVEL 8.3 MG/DL (8.3-10.6); CREATININE FOR GFR 1.18 MG/DL (0.55-1.30); GLOMERULAR FILTRATION RATE 45.9 (>32); MAGNESIUM LEVEL 2.3 MG/DL (1.8-2.4); POTASSIUM SERUM 4.1 MMOL/L (3.5-5.1)
[2024-08-10 12:00] VITALS: BP 139/67; TEMP 98.1; O2SAT 93
[2024-08-10 19:49] VITALS: BP 136/68; TEMP 98.1; O2SAT 95
[2024-08-11 04:00] VITALS: BP 133/64; TEMP 97.3; O2SAT 96
[2024-08-11 06:55] LABS: HEMATOCRIT 33.2 % (36.0-47.0); HEMOGLOBIN 10.3 g/dl (12.0-15.5); MEAN CORPUSCULAR HEMOGLOBIN 28.9 pg (27.0-33.0); MEAN CORPUSCULAR VOLUME 93.3 fl (80.0-96.0); PLATELET COUNT, AUTOMATED 211 10^3/uL (150-450); RED BLOOD COUNT 3.56 10^6/uL (4.00-5.40); WHITE BLOOD COUNT 3.5 10^3/uL (4.0-10.0)
[2024-08-11 12:00] VITALS: BP 130/70; TEMP 98.2; O2SAT 95
[2024-08-11 21:20] VITALS: BP 147/61; TEMP 97.9; O2SAT 95
[2024-08-12 03:10] VITALS: BP 144/60; TEMP 97.7; O2SAT 94
[2024-08-12 06:37] LABS: HEMOGLOBIN 10.7 g/dl (12.0-15.5); MEAN CORPUSCULAR HEMOGLOBIN 29.2 pg (27.0-33.0); MEAN CORPUSCULAR HGB CONC 30.6 g/dl (32.0-36.5); MEAN CORPUSCULAR VOLUME 95.6 fl (80.0-96.0); PLATELET COUNT, AUTOMATED 208 10^3/uL (150-450); RED BLOOD COUNT 3.66 10^6/uL (4.00-5.40); WHITE BLOOD COUNT 3.6 10^3/uL (4.0-10.0)
[2024-08-12 08:40] VITALS: BP 166/81
[2024-08-12 12:00] VITALS: BP 116/78; TEMP 97.9; O2SAT 94
[2024-08-12] MEDS ORDERED: ELIQ5TAB PO (17:07)
== END 2024-08-12 13:10 | disposition home health service (06) | DRG 540 ==
LOC: EDBD 10:42 → M ED 10:42 → M ED INP 16:31 → M PCU 22:28 → M MS5PR 08-07 11:20
PROVIDERS: ADMIT Internal Medicine; ATTEND Internal Medicine
DX: M86.171 Other acute osteomyelitis, right ankle and foot (principal); I82.411 Acute embolism and thrombosis of right femoral vein; L03.115 Cellulitis of right lower limb; T84.69XD Infection and inflammatory reaction due to internal fixation device of other site, subsequent encounter; I10 Essential (primary) hypertension; M06.9 Rheumatoid arthritis, unspecified; K21.9 Gastro-esophageal reflux disease without esophagitis; Z96.641 Presence of right artificial hip joint; I16.0 Hypertensive urgency; L40.9 Psoriasis, unspecified; Z79.82 Long term (current) use of aspirin; Z79.899 Other long term (current) drug therapy; Z88.0 Allergy status to penicillin; Z86.73 Personal history of transient ischemic attack (TIA), and cerebral infarction without residual deficits; Z85.828 Personal history of other malignant neoplasm of skin; Z87.891 Personal history of nicotine dependence

== ENCOUNTER → 2024-08-20 | Outpatient (CLI) | payer MEDICARE, OTHER ==
[~2024-08-20] MED LIST changes: +ELIQ5TAB PO
== END ==
LOC: M SOG 07:59
PROVIDERS: ATTEND Orthopaedic Surgery
DX: T84.622D Infection and inflammatory reaction due to internal fixation device of right tibia, subsequent encounter (principal); Z96.641 Presence of right artificial hip joint; S72.141D Displaced intertrochanteric fracture of right femur, subsequent encounter for closed fracture with routine healing

== ENCOUNTER → 2024-09-02 | Outpatient (REF) | payer MEDICARE, OTHER ==
[2024-09-02 14:27] LABS: BASO % 0.4 % (0.0-1.0); HEMATOCRIT 29.5 % (36.0-47.0); HEMOGLOBIN 8.9 g/dl (12.0-15.5); LYMPH # 1.2 10^3/uL (1.5-5.0); MEAN CORPUSCULAR HEMOGLOBIN 30.5 pg (27.0-33.0); MEAN CORPUSCULAR HGB CONC 30.2 g/dl (32.0-36.5); MONO # 0.4 10^3/uL (0.0-0.8); MONO % 7.7 % (2.0-8.0); NEUTROPHILS # 3.5 10^3/uL (1.5-8.5); NEUTROPHILS % 67.7 % (36.0-66.0); PLATELET COUNT, AUTOMATED 252 10^3/uL (150-450); RED BLOOD COUNT 2.92 10^6/uL (4.00-5.40); WHITE BLOOD COUNT 5.2 10^3/uL (4.0-10.0)
[2024-09-02 14:36] LABS: ERYTHROCYTE SEDIMENTATION RATE 38 mm/hr (0-30)
== END ==
LOC: M SHH 13:20
PROVIDERS: ATTEND Internal Medicine Infectious Disease
DX: M86.461 Chronic osteomyelitis with draining sinus, right tibia and fibula (principal)

== ENCOUNTER → 2024-10-01 | Outpatient (CLI) | payer MEDICARE, OTHER | LOC: M SOG 07:56 | PROVIDERS: ATTEND Orthopaedic Surgery | DX: S72.141D Displaced intertrochanteric fracture of right femur, subsequent encounter for closed fracture with routine healing (principal); M86.162 Other acute osteomyelitis, left tibia and fibula; M25.571 Pain in right ankle and joints of right foot; M85.671 Other cyst of bone, right ankle and foot; M19.071 Primary osteoarthritis, right ankle and foot ==

== ENCOUNTER → 2024-11-04 | Outpatient (REF) | payer MEDICARE, OTHER ==
[2024-11-04 12:44] LABS: BASO % 0.5 % (0.0-1.0); HEMATOCRIT 36.9 % (36.0-47.0); HEMOGLOBIN 11.1 g/dl (12.0-15.5); LYMPH # 1.1 10^3/uL (1.5-5.0); LYMPH % 25.4 % (24.0-44.0); MEAN CORPUSCULAR HEMOGLOBIN 28.6 pg (27.0-33.0); MEAN CORPUSCULAR HGB CONC 30.1 g/dl (32.0-36.5); MEAN CORPUSCULAR VOLUME 95.1 fl (80.0-96.0); MONO # 0.3 10^3/uL (0.0-0.8); MONO % 6.9 % (2.0-8.0); NEUTROPHILS # 2.9 10^3/uL (1.5-8.5); PLATELET COUNT, AUTOMATED 170 10^3/uL (150-450); RED BLOOD COUNT 3.88 10^6/uL (4.00-5.40); WHITE BLOOD COUNT 4.3 10^3/uL (4.0-10.0)
[2024-11-04 13:09] LABS: ALT/SGPT 10 U/L (7.0-40); AST/SGOT 10 U/L (<34)
== END ==
LOC: M SHH 11:34
PROVIDERS: ATTEND Nurse Practitioner Family
DX: L40.0 Psoriasis vulgaris (principal); M06.00 Rheumatoid arthritis without rheumatoid factor, unspecified site; Z51.81 Encounter for therapeutic drug level monitoring

== ENCOUNTER → 2025-02-03 | Outpatient (REF) | payer MEDICARE, OTHER ==
[2025-02-03 12:07] LABS: PLATELET COUNT, AUTOMATED 127 10^3/uL (150-450)
[2025-02-03 12:32] LABS: ESTIMATED AVERAGE GLUCOSE 85.0 MG/DL (60-110)
[2025-02-03 12:35] LABS: ALT/SGPT 10.0 U/L (7.0-40); AST/SGOT 14.0 U/L (<34); CALCIUM LEVEL 8.5 MG/DL (8.3-10.6); CARBON DIOXIDE LEVEL 27.0 MMOL/L (20-31); CHLORIDE LEVEL 105.0 MMOL/L (98-107); CHOLESTEROL LEVEL 131.0 MG/DL (<200); CHOLESTEROL RISK RATIO 2.33 (<5); CREATININE FOR GFR 1.35 MG/DL (0.55-1.30); GLOMERULAR FILTRATION RATE 37.6 (>32); LDL CHOLESTEROL 63.0 MG/DL (<100); NON-HDL-C 75.0 MG/DL; POTASSIUM SERUM 3.9 MMOL/L (3.5-5.1); SODIUM LEVEL 144.0 MMOL/L (136-145); TRIGLYCERIDES LEVEL 60.0 MG/DL (<150)
[2025-02-03 12:37] LABS: TOTAL 25(OH) VITAMIN D 35.5 NG/ML (20.0-100.0)
== END ==
LOC: M SHH 11:14
PROVIDERS: ATTEND Physician Assistant
DX: I10 Essential (primary) hypertension (principal); E78.5 Hyperlipidemia, unspecified; E55.9 Vitamin D deficiency, unspecified; R73.01 Impaired fasting glucose; M86.461 Chronic osteomyelitis with draining sinus, right tibia and fibula